=== PATIENT | female | born 2000 | race Hispanic/Latino ===

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

== ENCOUNTER → 2022-01-06 13:51 | Outpatient (CLI) | payer OTHER, SELFPAY ==
--- NOTE | ~2022-01-06 | US_ITS ---
EXAMINATION: US pelvic complete DATE: 01/06/2022 14:30 INDICATION: Right ovarian cyst. Comparison:Ultrasound dated 09/12/2021 TECHNIQUE: Multiple transabdominal and endovaginal sonographic images of the pelvis performed. FINDINGS: The uterus measures 8 x 3.3 x 4.8 cm. The endometrial complex measures 4 mm. The right ovary measures 3.7 x 3 x 3.9 cm and the left ovary measures 3.3 x 1.8 x 2.9 cm. There is a right ovarian cyst measuring 2.9 x 2.2 x 1.9 cm. There are small follicles in each ovary. Normal dopp ler signal in both ovaries. There is no free fluid in the pelvis. There are no abnormal masses seen on either side. IMPRESSION: 1. Right ovarian cyst measuring 2.9 x 2.2 x 1.9 cm. Reviewed, dictated and finalized at location A.
== END ==
LOC: EXPGOSH 13:52 → EXPGOSHRAD 01-09 15:08
PROVIDERS: PCP Registered Nurse; Visit Provider Registered Nurse
DX: N83.201 Unspecified ovarian cyst, right side (principal)
CPT/HCPCS: 76856

== ENCOUNTER 2022-05-10 13:00 | Outpatient (CLI) | payer OTHER, SELFPAY ==
--- NOTE | ~2022-05-10 | US_ITS ---
EXAMINATION: US pelvic complete DATE: 05/10/2022 13:23 INDICATION: Cyst of the right ovary TECHNIQUE: Multiple transabdominal sonographic images of the pelvis were obtained. COMPARISON: 01/06/2022 FINDINGS: The uterus measures 6.3 x 4.4 x 3.3 cm. The endometrial complex measures 3 mm. The right ov donald measures 3.2 x 3.4 x 2.1 cm. The left ovary measures 2.6 x 2.4 x 1.5 cm. There is normal vascular flow in the ovaries. There is no free fluid in the pelvis. IMPRESSION: 1. Unremarkable pelvic ultrasound. Reviewed, dictated and finalized at location F. ROAD WORKER
== END 2022-05-10 13:01 | disposition home or self-care (01) ==
LOC: ANHIMG 13:02
PROVIDERS: PCP Registered Nurse; Visit Provider Registered Nurse
DX: N83.201 Unspecified ovarian cyst, right side (principal)
CPT/HCPCS: 76856

== ENCOUNTER 2022-08-21 23:57 | Emergency (ER) | payer OTHER, SELFPAY ==
--- NOTE | ~2022-08-21 | XR_ITS ---
Clinical Indication: Chest pain PA and lateral views of the chest: Comparison: None Findings: The lungs are clear, without evidence of focal consolidation or pleural effusion. Cardiome diastinal silhouette is within normal limits. Bones and soft tissues are unremarkable. Impression: Normal chest. Reviewed, dictated and finalized at location . TECH Impression: Normal chest.
--- NOTE | ~2022-08-21 | CT_ITS ---
Clinical Indication: Chest pain CT Scan of the Chest with Contrast: Technique: Contiguous sections were acquired throughout the chest after intravenous administration of 100 cc of Omnipaque 350. Dose reduction technique was used on this scan by utilizing automated expos ure control and iterative reconstruction technique. The dose-length product (DLP) was 181.59 mGy-cm. Findings: There is no evidence of any significant mediastinal, hilar or axillary lymphadenopathy. There is no f illing defect in the pulmonary arterial tree to suggest pulmonary embolus. There is no evidence of ao rtic dissection or aneurysm. There is no evidence of pleural or pericardial effusion. The lungs are clear. No pulmonary nodules or infiltrates are noted. Images through the upper abdomen reveal no abnormalities. Impression: No evidence of pulmonary embolus, aortic dissection, or aortic aneurysm. Clear lungs. Reviewed, dictated and finalized at [facility]. LE BREAKER Impression: No evidence of pulmonary embolus, aortic dissection, or aortic aneurysm. Clear lungs.
[2022-08-21 23:59] VITALS: BP 139/96; PULSE 87; RESP 16; TEMP 36.3; O2SAT 100
--- NOTE | 2022-08-22 00:03 | ECG_ITS ---
Measurements Intervals [place] Rate: 84 P: 52 WI: 163 QRS: 28 QRSD: 90 T: 42 QT: 346 QTc: 410 Interpretive Statements SINUS RHYTHM WITH SINUS ARRHYTHMIA NO PREVIOUS ECG AVAILABLE FOR COMPARISON Electronically Signed On 08-22-2022 11:34:57 MINUTE CLERK FOR BASIC TRAFFIC by Ernie Rodriguez M.D.
--- NOTE | 2022-08-22 01:02 | ED.CHESTPAIN ---
HPI - Chest Pain General Chief Complaint: Chest Pain <ALFONSO Coker Last Filed: 08/22/22 03:24> Stated Complaint: Chest tightness/blurry vision <ALFONSO Coker Last Filed: 08/22/22 03:24> Time Seen by Provider: 08/22/22 00:49 <ALFONSO Coker Last Filed: 08/22/22 03:24> History of Present Illness HPI narrative: 22-year-old female reports for evaluation of tunnel vision and chest tightness that occurred earlier today. Patient states she was standing in the break room at work, started walking to the front desk receptionist and experienced sudden onset chest tightness and tunnel vision that lasted less than 60 seconds. Patient states since then she has had a mild bitemporal headache. She states she has not had chest tightness or tunnel vision since the incident. She reports she has never had this happen before. She denies neck pain, vision changes other than the tunnel vision, chest pain, abdominal pain, nausea, vomiting, diarrhea, fever, body aches, chills, focal numbness or weakness. She denies recent trauma or falls. Denies heartburn, epigastric pain. Denies use of drugs. HEART Score for Major Cardiac Events from [email or web address] on 08/22/2022 All calculations should be rechecked by clinician prior to use RESULT SUMMARY: 0 points Low Score (0-3 points) Risk of MACE of 0.9-1.7%. INPUTS: History ?> 0 = Slightly suspicious EKG ?> 0 = Normal Age ?> 0 = <45 Risk factors ?> 0 = No known risk factors Initial troponin ?> 0 = <=normal limit <ALFONSO Coker Last Filed: 08/22/22 03:24> Related Data Home Medications: Home Medications Medication Instructions Recorded Confirmed No Home Medications 08/10/21 08/10/21 <ALFONSO Coker Last Filed: 08/22/22 03:24> Allergies/Adverse Reactions: Allergies Allergy/AdvReac Type Severity Reaction Status Date / Time No Known Allergies Allergy Verified 08/22/22 00:50 <ALFONSO Coker Last Filed: 08/22/22 03:24> Review of Systems Review of Systems: CONSTITUTIONAL: Denies fever, chills EYES: Denies visual changes, redness, or discharge. ENT: Denies rhinorrhea, congestion, sore throat, or otalgia. CARDIOVASCULAR: Denies chest pain, palpitations, or edema. RESPIRATORY: Denies cough or dyspnea. GASTROINTESTINAL: Denies abdominal pain, nausea, vomiting, or diarrhea. GENITOURINARY: Denies dysuria or hematuria. SKIN: Denies rash or itching. MUSCULOSKELETAL: Denies back pain, joint pain, or myalgia. NEUROLOGIC: Denies headache, numbness, dizziness, or weakness. PSYCHIATRIC: Denies anxiety or depression. <Muriel Jeffery PA-C - Last Filed: 08/22/22 03:24> [facility] Social History Social History: Social History Gender identity (if verbalized by the patient): Female <Muriel Jeffery PA-C - Last Filed: 08/22/22 03:24> Exam Narrative: GENERAL: Well-appearing, well-nourished, and in no acute distress. HEAD: Normocephalic, atraumatic. EYES: PERRLA and EOMI. ENT: Nares clear, no rhinorrhea or epistaxis. Mucous membranes moist. Oropharynx without tonsillar hypertrophy exudate or other lesions. Bilateral TMs pearly king nonbulging NECK: Supple. No adenopathy or masses. CHEST: Clear to auscultation. No respiratory distress. No wheezes rales or rhonchi. HEART: Regular rate and rhythm. No murmur heard. Normal peripheral pulses. ABDOMEN: Soft, nontender, nondistended, normal active bowel sounds. EXTREMITIES: Normal range of motion. No edema. SKIN: Warm, dry, no rash. NEURO: No focal deficits. Alert and oriented x3. Cranial nerves II through XII intact. Strength 5 out of 5 throughout. Sensation intact in all extremities. PSYCH: Normal mood and affect. <Muriel Jeffery PA-C - Last Filed: 08/22/22 03:24> Course Course Emergency Course: 0255: Patient reevaluated. She reports improvement in her headache. 0323: Michelle
[2022-08-22 01:03] LABS: Basophils Absolute Auto 0.1 K/mm3 (0.0-0.1); Basophils Percent Auto 0.9 % (0.2-1.2); Eosinophils Absolute Auto 0.2 K/mm3 (0-0.3); Hematocrit 40.1 % (37.0-47.0); Hemoglobin 12.6 g/dL (12.0-15.0); Immature Granulocyte Absolute 0.02 K/mm3 (0.00-0.031); Immature Granulocyte Percent A 0.2 % (0-0.5); Lymphocytes Absolute Auto 3.32 K/mm3 (0.9-3.2); Lymphocytes Percent Auto 38.2 % (18.3-44.2); Mean Corpuscular HGB Conc 31.4 g/dl (32-36); Mean Corpuscular Hemoglobin 26.5 pg (26-34); Mean Corpuscular Volume 84.2 fl (80-100); Mean Platelet Volume 11.2 fl (7.4-10.4); Monocytes Absolute Auto 0.6 K/mm3 (0.1-0.6); Monocytes Percent Auto 7.2 % (2.6-8.5); Neutrophils Absolute Auto 4.5 K/mm3 (1.3-6.7); Neutrophils Percent Auto 51.5 % (45.5-73.1); Platelet Count Result 236 k/mm3 (150-375); Red Blood Count 4.76 M/mm3 (4.2-5.4); Red Cell Distribution Width 14.1 % (11.5-14.5); White Blood Count 8.7 K/mm3 (4.5-10.0)
[2022-08-22 01:16] LABS: INR 0.9; Prothrombin Time 12.1 Seconds (11.1-14.7)
[2022-08-22 01:17] LABS: Alanine Aminotransferase 22 U/L (6-35); Albumin Level 4.6 g/dL (3.5-5.1); Alkaline Phosphatase 78 U/L (38-126); Anion Gap 10 mmol/L (8-16); Aspartate Amino Transferase 28 U/L (14-36); Bilirubin,Total 0.4 mg/dL (0.2-1.3); Blood Urea Nitrogen 20 mg/dL (7-17); Carbon Dioxide 25 mmol/L (22-30); Chloride 104 mmol/L (98-107); Estimated CRCL calculation 83 ml/min; Estimated Glomerular Filt Rate > 60; Glucose 95 mg/dL (65-110); Lipase 86 U/L (23-300); Partial Thromboplastin Time 30.7 SECONDS (22.3-36.8); Potassium 3.7 mmol/L (3.4-5.0); Sodium 139 mmol/L (137-145)
[2022-08-22 01:25] LABS: Troponin I < 0.012 ng/mL (0.000-0.034)
[2022-08-22] MEDS: diphenhydrAMINE HCl INJ 50 MG/ML VIAL 25 MG IV PUSH (01:47)
[2022-08-22] MEDS: SODIUM CHLORIDE 0.9% IV 1,000 ML 999 ML IV CONT (01:47)
[2022-08-22] MEDS: KETOROLAC 15 MG/ML VIAL (*BKC) IV PUSH (01:52)
[2022-08-22 02:38] VITALS: BP 126/71; PULSE 86
[2022-08-22 02:40] VITALS: BP 124/64; PULSE 82
[2022-08-22 02:43] VITALS: BP 130/58; PULSE 78
[2022-08-22 03:06] LABS: Appearance Urine Clear (Clear); Bilirubin Urine Negative (Negative); Blood Urine Negative (Negative); Color Urine Yellow (Yellow); Glucose Urine UA Negative (Negative); Ketones Urine Negative (Negative); Leukocyte Esterase Ur Trace LEU/UL (Negative); Need Manual Microscopic Reviewed; Nitrate Urine Negative (Negative); Non Pathogenic Casts 0-2; Protein Urine Negative (Negative); RBC Urine 0-2 /hpf (0-2); Specific Grav Ur 1.002 (1.001-1.035); Squamous Epithelial Cell Urine None seen /hpf (Few); Urobilinogen Urine 0.2 mg/dL (<2.0); WBC Urine 0-5 /hpf; pH Urine 6.5 (5.0-9.0)
[2022-08-22 03:07] LABS: Add Urine Microscopic? YES; Bacteria Urine Trace /hpf
[2022-08-22 03:42] LABS: D Dimer 1.85 ug/mL (<0.48)
[2022-08-22 03:44] LABS: Troponin I < 0.012 ng/mL (0.000-0.034)
[2022-08-22 05:00] VITALS: BP 127/82; PULSE 82; RESP 17; O2SAT 100
[2022-08-22 06:18] VITALS: BP 116/76; PULSE 76; O2SAT 100
== END 2022-08-22 06:27 | disposition home or self-care (01) ==
PROVIDERS: Physician Assistant; Emergency Provider General Practice; PCP Registered Nurse
DX: R55 Syncope and collapse (principal); R07.89 Other chest pain
CPT/HCPCS: 36415; 71046; 71275; 80053; 81001; 81025; 83690; 84484; 85025; 85380; 85610; 85730; 93005; 96361; 96374; 96375; 99284; J1200; J1885; J7030; Q9967

== ENCOUNTER 2022-08-23 22:14 | Emergency (ER) | payer OTHER, SELFPAY ==
--- NOTE | ~2022-08-23 | XR_ITS ---
EXAMINATION: XR chest 2V DATE: 08/23/2022 22:51 INDICATION: Chest pain TECHNIQUE: PA and lateral views of the chest are obtained. COMPARISON: 08/22/2022 FINDINGS: The lungs are free of acute opacities. No pleural effusion or pneumothorax. The cardiomedia stinal silhouette is normal. The visualized bones and soft tissues are unremarkable. IMPRESSION: 1. No acute cardiopulmonary abnormality. Reviewed, dictated and finalized at location F. POLLUTION SPECIALIST
--- NOTE | 2022-08-23 22:19 | ECG_ITS ---
Measurements Intervals [place] Rate: 77 P: 48 WI: 156 QRS: 16 QRSD: 85 T: 24 QT: 355 QTc: 403 Interpretive Statements SINUS RHYTHM NORMAL ECG COMPARED TO ECG 08/22/2022 00:10:18 NO SIGNIFICANT CHANGES Electronically Signed On 08-24-2022 6:33:13 BUSINESS BROKER by Lauro Muniz D.O.
[2022-08-23 22:23] VITALS: BP 138/86; PULSE 76; RESP 20; TEMP 36.7; O2SAT 100
[2022-08-23 22:39] LABS: Basophils Absolute Auto 0.1 K/mm3 (0.0-0.1); Basophils Percent Auto 0.9 % (0.2-1.2); Eosinophils Absolute Auto 0.2 K/mm3 (0-0.3); Eosinophils Percent Auto 1.9 % (0-4.4); Hematocrit 40.8 % (37.0-47.0); Hemoglobin 12.8 g/dL (12.0-15.0); Immature Granulocyte Absolute 0.03 K/mm3 (0.00-0.031); Immature Granulocyte Percent A 0.3 % (0-0.5); Lymphocytes Absolute Auto 3.35 K/mm3 (0.9-3.2); Lymphocytes Percent Auto 37.3 % (18.3-44.2); Mean Corpuscular HGB Conc 31.4 g/dl (32-36); Mean Corpuscular Hemoglobin 26.3 pg (26-34); Mean Corpuscular Volume 83.8 fl (80-100); Mean Platelet Volume 10.9 fl (7.4-10.4); Monocytes Absolute Auto 0.6 K/mm3 (0.1-0.6); Neutrophils Absolute Auto 4.7 K/mm3 (1.3-6.7); Neutrophils Percent Auto 52.6 % (45.5-73.1); Platelet Count Result 236 k/mm3 (150-375); Red Blood Count 4.87 M/mm3 (4.2-5.4)
[2022-08-23 22:51] LABS: Alanine Aminotransferase 26 U/L (6-35); Alkaline Phosphatase 67 U/L (38-126); Anion Gap 10 mmol/L (8-16); Aspartate Amino Transferase 28 U/L (14-36); Bilirubin,Total 0.4 mg/dL (0.2-1.3); Blood Urea Nitrogen 17 mg/dL (7-17); Calcium 9.7 mg/dL (8.4-10.2); Carbon Dioxide 24 mmol/L (22-30); Chloride 102 mmol/L (98-107); Estimated CRCL calculation 87 ml/min; Estimated Glomerular Filt Rate > 60; Glucose 84 mg/dL (65-110); Lipase 81 U/L (23-300); Potassium 3.6 mmol/L (3.4-5.0); Prothrombin Time 12.3 Seconds (11.1-14.7); Sodium 136 mmol/L (137-145)
[2022-08-23 22:52] LABS: Partial Thromboplastin Time 31.2 SECONDS (22.3-36.8)
[2022-08-23 23:03] LABS: Troponin I < 0.012 ng/mL (0.000-0.034)
[2022-08-24 05:03] VITALS: BP 135/96; PULSE 81; RESP 16; O2SAT 100
--- NOTE | 2022-08-24 05:12 | ED.CHESTPAIN ---
HPI - Chest Pain General Chief Complaint: Chest Pain Stated Complaint: chest pain Time Seen by Provider: 08/24/22 05:03 Source: RN notes reviewed History of Present Illness HPI narrative: Patient presents emergency department from home for chest pain. He states chest pain began 3 days ago. The pain is located to left superior anterior chest and is described as sharp and stabbing in nature. States the pain will radiate into the left arm or into the back at times. States nothing seems to make the pain better or worse. Patient states at times she feels like she cannot take a deep breath. She denies any fevers or chills, cough, abdominal pain nausea vomiting diarrhea or any other symptoms. Patient states she was seen in the emergency department 3 days ago with negative work-up at that time but was not told what was wrong with her and came back for further evaluation states she has taken no pain medication Related Data Allergies Allergy/AdvReac Type Severity Reaction Status Date / Time No Known Allergies Allergy Verified 08/22/22 00:50 Review of Systems Review of Systems: Gen.: Denies fevers or chills ENT: Denies congestion Respiratory: Reports shortness of breath CV: See HPI GI: Denies abdominal pain nausea, emesis or diarrhea denies burning, urgency, frequency or hematuria Musculoskeletal: Denies back pain or muscle pain Neuro: Denies numbness, tingling, weakness or focal weakness Skin: Denies rash Except as documented, all other systems reviewed and negative PMF Past Medical History Medical History (Updated 08/24/22 @ 06:42 by Shan Cheung DO) Patient denies significant medical history Social History Social History (Updated 08/24/22 @ 05:14 by Shan Cheung DO) Smoking status: Never smoker Gender identity (if verbalized by the patient): Female Exam Narrative: APPEARANCE: No acute distress, nontoxic, resting in bed EYES: EOMI HEENT: Normocephalic, atraumatic, OMM RESPIRATORY: No respiratory distress Clear to auscultation bilaterally with no rhonchi wheezing or rales. CARDIOVASCULAR: Regular rate and rhythm without murmurs rubs or gallops. Chest: Point tenderness present over left anterior superior chest wall just to the left of the sternum in the region of ribs 3 and 4 corresponding tenderness in back in same region ABDOMINAL: Soft, nontender, nondistended, no rebound or guarding MUSCULOSKELETAl: Moves all extremities. No clubbing, cyanosis or edema. NEURO: Awake and alert. Following commands, speech normal, no focal deficits SKIN:: Warm, dry. No rashes lesions or abrasions PSYCHIATRIC: Normal affect/mood, Course Course Emergency Course: Patient meets PERC rule criteria and no further testing needs to be performed for pulmonary embolism. Reviewed old records including CTA of the chest that was performed on 08/22/2022. CTA chest showed no signs of pulmonary embolism and aneurysm pneumonia Discussed with patient results of workup and diagnosis. Discussed need for follow-up with primary care, proper use of medication, and reasons to return to the emergency department. Patient understands and agrees to current treatment plan Vital Signs Vital signs: Vital Signs Temperature 98.0 F 08/23/22 22:23 Pulse Rate 76 08/23/22 22:23 Respiratory Rate 20 08/23/22 22:23 Blood Pressure 138/86 08/23/22 22:23 Pulse Oximetry 100 08/23/22 22:23 Oxygen Delivery Room Air 08/23/22 22:23 Temperature 98.9 F 08/24/22 05:37 Pulse Rate 79 08/24/22 05:37 Respiratory Rate 17 08/24/22 05:37 Blood Pressure 122/96 H 08/24/22 05:37 Pulse Oximetry 100 08/24/22 05:37 Oxygen Delivery Room Air 08/24/22 05:43 MDM - Chest Pain MDM Narrative Medical decision making narrative: Patient's EKGs and labs are without significant high risk changes. Cardiac risk factors reviewed. Patient is felt likely low risk for ACS and reasonable for further risk stratification testing as an outpatient.
[2022-08-24 05:19] VITALS: PULSE 78; RESP 14; O2SAT 99
[2022-08-24 05:30] VITALS: PULSE 79; RESP 12; O2SAT 100
[2022-08-24] MEDS: KETOROLAC 30 MG/ML VIAL (*BKC) IV PUSH (05:35)
[2022-08-24 05:37] VITALS: BP 122/96; PULSE 79; RESP 17; TEMP 37.2; O2SAT 100
[2022-08-24 06:12] LABS: Troponin I < 0.012 ng/mL (0.000-0.034)
[2022-08-24 06:58] VITALS: BP 122/69; PULSE 84; RESP 18; TEMP 36.6; O2SAT 99
== END 2022-08-24 06:58 | disposition home or self-care (01) ==
PROVIDERS: Emergency Provider Emergency Medicine; PCP Registered Nurse
DX: R07.89 Other chest pain (principal)
CPT/HCPCS: 36415; 71046; 80053; 83690; 84484; 85025; 85610; 85730; 93005; 96374; 99284; A9270; J1885

== ENCOUNTER 2022-10-17 09:30 | Outpatient (RCR) | payer OTHER, SELFPAY ==
--- NOTE | 2022-09-05 08:47 | PTOPEVAL1 ---
Assessment and note entered by Dayday Davis, PT Evaluation Information Assessment Status Evaluation Diagnosis Chondrocostal junction pain Onset Less than a week ago Subjective Information Patient reports no incidents of moderate to severe chest pain. Both times went to the ER and then saw her primary care physician. The patient reports the doctor thought the first incident was a panic attack, but the second was musculoskeletal . Patient was given PRN anti-anxiety medication and medications for the pain, which patient does not recall the name of. She reports pain has gone down to mild pain. Aggravating factors are lat pull downs. No radiating symptoms Assessment PT Clinical Summary Tameka is a 22 year female coming in with chest pain. Unable to reproduce pain felt that sent her to ER, but did notice tightness in MADHAVI pecs and L scalenes along with painful palpation of scalene muscles on the L side. Will work on stretching out muscles and see if that help minimizes pain. Also encouraged her to avoid over head lifting for a little time. Plan of Care Interventions Electrical Stimulation,Gait Training,Hot Pack/Cold Pack,Manual Therapy,Neuro Re-education,Patient/ Caregiver Education,Therapeutic Activities, Therapeutic Exercise,Ultrasound Other Interventions taping PT Services Indicated Yes Treatment Frequency and 1-2x/wk for 4 weeks Duration These treatments will address the objective and functional deficits as defined above. The patient will be advanced safely and appropriately in order for the patient to progress towards his/her prior level of function. Additional exercises will be introduced and as well as a comprehensive home exercise program upon discharge, if needed, ?to ensure carryover of functional gains achieved in the clinic. This treatment plan has been reviewed and agreement upon by the patient.
--- NOTE | 2022-09-13 10:37 | PCPTNOTE ---
Patient called & cancelled scheduled appointment this date due to not feeling well
--- NOTE | 2022-09-20 11:01 | PCPTNOTE ---
Had to reschedule appointment from 09/19/22 secondary to staff illness.
--- NOTE | 2022-09-21 07:47 | PCPTNOTE ---
Patient called & cancelled scheduled appointment this date due to unable to make it in today.
--- NOTE | 2022-10-02 09:23 | PCPTNOTE ---
Patient called & cancelled scheduled appointment this date due to forgetting appointment until it started
--- NOTE | 2022-10-17 10:31 | PTOPDC ---
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 She still has pain, but maybe only 1-2 times a week instead of constant. No longer having pain with lat pull downs, but now with rows in her T5 posterior rib. Patient reports doing the stretching prior to working out is really helping. Reported Pain Level Pain Score 0: Self Report Additional Pain Score Comments currently no pain, but has been a 1/10 during the last week Assessment PT Clinical Summary Tameka is a 22 year old female coming in for chondrocostal junction pain. She was evaluated on 09/04/22 and has attended 5 sessions with 3 cancelations. The patient has met her goals although she still does have minor 1/10 occasional pain. Patient is okay with discharge with stretches and HEP to continue to work on upper thoracic tightness. Plan of Care PT Services Indicated No
== END 2022-11-17 14:24 | disposition home or self-care (01) ==
LOC: ANHPT 09:30
PROVIDERS: PCP Registered Nurse; Visit Provider Registered Nurse
DX: M94.0 Chondrocostal junction syndrome [Tietze] (principal)
CPT/HCPCS: 97110; 97112; 97140; 97161

== ENCOUNTER 2022-11-03 09:55 | Emergency (ER) | payer OTHER, SELFPAY ==
[2022-11-03 10:20] VITALS: BP 113/69; PULSE 80; RESP 18; TEMP 36.9; O2SAT 99
--- NOTE | 2022-11-03 11:00 | ED.URI ---
HPI - URI/Sore Throat General Chief Complaint: Upper Respiratory Infection Stated Complaint: Runny nose & cough Time Seen by Provider: 11/03/22 10:36 Source: patient Mode of arrival: ambulatory Limitations: no limitations History of Present Illness HPI Narrative: Patient presents today with a 4 day history of slight cough, scratchy throat, bilateral ear itching, rhinorrhea, congestion, eye itching, sneezing. Denies fever or shortness of breath. No history of asthma. Patient is a nonsmoker. She has been taking Flonase, Claritin, and TheraFlu without much relief. History of seasonal allergies. Related Data Home Medications Medication Instructions Recorded Confirmed fluticasone propionate 50 50 mcg intranasal DIRECTED 11/03/22 11/03/22 mcg/actuation nasal spray,suspension loratadine 10 mg tablet 10 mg DIRECTED 11/03/22 11/03/22 Allergies Allergy/AdvReac Type Severity Reaction Status Date / Time No Known Allergies Allergy Verified 08/22/22 00:50 Review of Systems Review of Systems: CONSTITUTIONAL: Denies body aches, fever, chills, or sweats. EYES: Denies visual changes, redness, or discharge.+ bilateral eye itching ENT: + congestion, sneezing, rhinorrhea, bilateral ear itching, scratchy throat CARDIOVASCULAR: Denies chest pain, palpitations, or edema. RESPIRATORY: Denies dyspnea.+ cough GASTROINTESTINAL: Denies abdominal pain, nausea, vomiting, or diarrhea. GENITOURINARY: Denies dysuria or hematuria. SKIN: Denies rash, itching, or wounds. MUSCULOSKELETAL: Denies back pain, joint pain, or myalgia. NEUROLOGIC: Denies headache, numbness, tingling, or weakness. PSYCH: Denies depression or anxiety. [facility] Past Medical History Medical History Patient denies significant medical history Social History Social History Smoking status: Never smoker Gender identity (if verbalized by the patient): Female Comments At time of signature, I have reviewed and agree with nursing past medical, surgical, social and family history unless otherwise noted. Please see nursing chart for further information. There is no relevant family history pertinent to the presenting complaint Exam Narrative: GENERAL: Well-appearing, well-nourished, and in no acute distress. HEAD: Normocephalic, atraumatic. EYES: EOMI. No redness or drainage. Conjunctivae normal. ENT: Mucous membranes pink and moist. Nares congested with rhinorrhea. TMs normal bilaterally. Throat normal. Uvula midline. NECK: Normal AROM. Supple. No lymphadenopathy. CHEST: No respiratory distress. Clear to auscultation. HEART: Regular rate and rhythm. No murmur appreciated. Normal peripheral pulses. EXTREMITIES: Normal range of motion. No edema. SKIN: Warm, dry, no rash. Capillary refill normal. Normal skin turgor. NEURO: No focal deficits. Alert and oriented x3. Gait steady. PSYCH: Normal affect. No signs of depression or anxiety. Course Course Level of Care: Express Care Visit Vital Signs Vital signs: Vital Signs Temperature 98.5 F 11/03/22 10:20 Pulse Rate 80 11/03/22 10:20 Respiratory Rate 18 11/03/22 10:20 Blood Pressure 113/69 11/03/22 10:20 Pulse Oximetry 99 11/03/22 10:20 Oxygen Delivery Room Air 11/03/22 10:20 Temperature 98.5 F 11/03/22 10:20 Pulse Rate 80 11/03/22 10:20 Respiratory Rate 18 11/03/22 10:20 Blood Pressure 113/69 11/03/22 10:20 Pulse Oximetry 99 11/03/22 10:20 Oxygen Delivery Room Air 11/03/22 10:20 Reviewed MDM - URI/Sore Throat [facility] Narrative Medical decision making narrative: Symptoms and exam consistent with seasonal allergies. Will treat with prednisone and patient will continue her [id number] treatment. Anticipatory guidance given. Differential Diagnosis Differential diagnosis: Likely upper respiratory infection, otitis media, sin
== END 2022-11-03 11:18 | disposition home or self-care (01) ==
PROVIDERS: Emergency Provider Nurse Practitioner; PCP Registered Nurse
DX: J30.2 Other seasonal allergic rhinitis (principal)
CPT/HCPCS: 99213; G0463

== ENCOUNTER 2023-04-21 18:38 | Emergency (ER) | payer OTHER, SELFPAY ==
--- NOTE | ~2023-04-21 | XR_ITS ---
EXAM: XR ankle LT min 3V DATE: 04/21/2023 19:05 HISTORY: fall/pain ALL AROUND ANKLE JOINT . COMPARISON: None available. FINDINGS: Normal mineralization. No fracture or dislocation. No lytic or blastic lesion. Joint space s are maintained. No erosion or periosteal change. Soft tissues within normal limits. IMPRESSION: No acute osseous finding in the left ankle. Reviewed, dictated and finalized at location K.
[2023-04-21 18:52] VITALS: BP 120/79; PULSE 88; RESP 16; TEMP 36.6; O2SAT 100
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
[2023-04-21 21:04] VITALS: BP 116/74; PULSE 76; RESP 16; O2SAT 100
== END 2023-04-21 21:04 | disposition home or self-care (01) ==
PROVIDERS: Emergency Provider Emergency Medicine; PCP Registered Nurse
DX: S93.402A Sprain of unspecified ligament of left ankle, initial encounter (principal); S96.912A Strain of unspecified muscle and tendon at ankle and foot level, left foot, initial encounter; X50.0XXA Overexertion from strenuous movement or load, initial encounter
CPT/HCPCS: 73610; 99283

== ENCOUNTER 2023-05-18 14:31 | Emergency (ER) | payer OTHER, SELFPAY ==
--- NOTE | 2023-05-18 14:32 | ED.URI ---
HPI - URI/Sore Throat General Chief Complaint: Upper Respiratory Infection Stated Complaint: sore throat,cough Time Seen by Provider: 05/18/23 14:32 Source: patient Mode of arrival: ambulatory Limitations: no limitations History of Present Illness HPI Narrative: Lisa is a 23-year-old female patient presenting to the clinic today with complaints of sore throat and cough x1 week. She reports no known fever or chills. No known exposure to anyone with COVID, flu, or strep. MD elicited complaint: cough, sore throat and nasal congestion Related Data Home Medications Medication Instructions Recorded Confirmed loratadine 10 mg tablet 10 mg DIRECTED 11/03/22 05/18/23 Allergies Allergy/AdvReac Type Severity Reaction Status Date / Time No Known Allergies Allergy Verified 05/18/23 14:40 Review of Systems Review of Systems: Pertinent positives per HPI. Patient denies any fever, chills, rash, headache, visual changes, dizziness, shortness of breath, chest pain, palpitations, nausea, vomiting, diarrhea, constipation, abdominal pain, or any urinary issues. [facility] Past Medical History Medical History Patient denies significant medical history Social History Social History Smoking status: Never smoker Gender identity (if verbalized by the patient): Female Comments At the time of my signature, I reviewed and agree with the nursing past medical, surgical, social, and family history. There is no relevant family history pertinent to the patient complaint. Exam Narrative: General: Well-developed, well nourished, in no apparent distress Head: Normocephalic, atraumatic Eyes: Pupils equally round and reactive to light bilaterally, EOM intact, sclera and conjunctive clear, no discharge, lids normal Ears: TMs intact and clear, ear canals clear, no drainage, grossly hearing normal. Nose: Nares patent, clear nasal discharge, moderate inflammation, no sinus tenderness. Mouth: Oral pharynx red without lesions or masses, good dentition, MMM. Postnasal drip Neck: Supple, trachea midline, no enlargement of anterior or posterior cervical nodes, no thyroid masses or goiter palpable. Cardio: Regular rate and rhythm, s1 and s2 normal, no murmur appreciated. Resp: Clear to auscultation bilaterally, no rhonchi, rales, wheezing or rubs Course Course Emergency Course: Portions of this record may have been created with voice recognition software. Level of Care: Express Care Visit Vital Signs Vital signs: Vital signs reviewed MDM - URI/Sore Throat MDM Narrative Medical decision making narrative: At the time of visit patient is resting comfortably on exam table. Strep screen was obtained and was negative in the clinic today. I suspect patient has URI/pharyngitis. Will send in prescription for prednisone. Supportive measures were discussed with the patient she voiced understanding discharge instructions and agrees to treatment plan. Return precautions were reviewed Differential Diagnosis Differential diagnosis: Likely upper respiratory infection, otitis media, sinusitis, viral infection, bronchitis, influenza, pharyngitis and other (COVID) Discharge Plan Discharge Clinical Impression: Upper respiratory infection Qualifiers: URI type: unspecified URI Qualified Code(s): J06.9 - Acute upper respiratory infection, unspecified Pharyngitis Qualifiers: Pharyngitis/tonsillitis etiology: unspecified etiology Qualified Code(s): J02.9 - Acute pharyngitis, unspecified Patient Disposition: Home, Self-Care Condition: Stable Instructions: Antibiotic Form, Pharyngitis (ED), Upper Respiratory Infection (ED), Viral Syndrome (ED) Additional Instructions: Strep test was negative in the clinic today. We will send for culture if this comes back positive we will contact him place you on antibiotics at that kathleen
[2023-05-18 14:43] VITALS: BP 122/67; PULSE 80; RESP 16; TEMP 37.1; O2SAT 100
== END 2023-05-18 14:53 | disposition home or self-care (01) ==
PROVIDERS: Emergency Provider Nurse Practitioner Family; PCP Registered Nurse
DX: J06.9 Acute upper respiratory infection, unspecified (principal); J02.9 Acute pharyngitis, unspecified
CPT/HCPCS: 87081; 87880; 99213; G0463

== ENCOUNTER 2024-03-30 19:28 | Emergency (ER) | payer OTHER, SELFPAY ==
--- NOTE | ~2024-03-30 | US_ITS ---
Pelvic ultrasound. Clinical History: First trimester , vaginal bleeding Technique: Realtime transabdominal and transvaginal scanning of the pelvis was performed. Color flow Doppler and Doppler spectral analysis were performed. Findings: The uterus is anteverted. The endometrial stripe is heterogeneous, and has a thickness of 14 mm. No intrauterine gestational sac identified. The right ovary measures 2.7 x 2.0 x 2.3 cm. No significant right ovarian or adnexal mass is seen. The left ovary measures 3.6 x 2.5 x 2.3 cm. No significant left ovarian or adnexal mass is seen. There is trace free fluid in the cul de sac. Impression: Positive test without intrauterine gestation. Heterogeneous endometrial stripe suggests spo ntaneous . Early normal or nonvisualized ectopic are not completely exclu ded. Correlate clinically. Continued follow-up with serial beta hCG, and repeat ultrasound as warrant ed, is advised. Reviewed, dictated and finalized at location . Impression: Positive test without intrauterine gestation. Heterogeneous endometri al stripe suggests spontaneous . Early normal or nonvisualize d ectopic are not completely excluded. Correlate clinically. Continue d follow-up with serial beta hCG, and repeat ultrasound as warranted, is advise dRic
[2024-03-30 19:36] VITALS: BP 128/63; PULSE 82; RESP 16; TEMP 36.4; O2SAT 100
[2024-03-30 20:48] LABS: Basophils Absolute Auto 0.1 K/mm3 (0.0-0.1); Basophils Percent Auto 0.8 % (0.2-1.2); Eosinophils Absolute Auto 0.1 K/mm3 (0-0.3); Eosinophils Percent Auto 1.4 % (0-4.4); Hematocrit 38.7 % (37.0-47.0); Hemoglobin 12.4 g/dL (12.0-15.0); Immature Granulocyte Absolute 0.02 K/mm3 (0.00-0.031); Immature Granulocyte Percent A 0.2 % (0-0.5); Lymphocytes Absolute Auto 2.52 K/mm3 (0.9-3.2); Lymphocytes Percent Auto 27.2 % (18.3-44.2); Mean Corpuscular Hemoglobin 26.7 pg (26-34); Mean Corpuscular Volume 83.4 fl (80-100); Mean Platelet Volume 11.2 fl (7.4-10.4); Monocytes Absolute Auto 0.5 K/mm3 (0.1-0.6); Monocytes Percent Auto 5.7 % (2.6-8.5); Neutrophils Percent Auto 64.7 % (45.5-73.1); Platelet Count Result 223 k/mm3 (150-375); Red Blood Count 4.64 M/mm3 (4.2-5.4); Red Cell Distribution Width 14.2 % (11.5-14.5); White Blood Count 9.3 K/mm3 (4.5-10.0)
[2024-03-30 20:57] LABS: Alanine Aminotransferase 16 U/L (6-35); Albumin Level 4.5 g/dL (3.5-5.1); Alkaline Phosphatase 54 U/L (38-126); Anion Gap 10 mmol/L (4-12); Aspartate Amino Transferase 26 U/L (14-36); Bilirubin,Total 0.3 mg/dL (0.2-1.3); Blood Urea Nitrogen 18 mg/dL (7-17); Calcium 9.5 mg/dL (8.4-10.2); Carbon Dioxide 25 mmol/L (22-30); Chloride 104 mmol/L (98-107); Estimated CRCL calculation 82 ml/min; Estimated Glomerular Filt Rate > 60; Glucose 83 mg/dL (65-110); Potassium 4.1 mmol/L (3.4-5.0); Sodium 139 mmol/L (137-145)
[2024-03-30 20:59] LABS: INR 0.9; Partial Thromboplastin Time 30.2 Seconds (22.3-36.8); Prothrombin Time 12.7 Seconds (11.1-14.7)
[2024-03-30 21:14] LABS: Beta HCG Quantitative 533.85 mIU/ML
[2024-03-31 00:38] LABS: Add Urine Microscopic? NO; Appearance Urine Clear (Clear); Bilirubin Urine Negative (Negative); Blood Urine Negative (Negative); Color Urine Yellow (Yellow); Glucose Urine UA Negative (Negative); Ketones Urine Negative (Negative); Leukocyte Esterase Ur Negative LEU/UL (Negative); Nitrate Urine Negative (Negative); Protein Urine Negative (Negative); Urobilinogen Urine 0.2 mg/dL (<2.0); pH Urine 7.5 (5.0-9.0)
--- NOTE | 2024-03-31 00:49 | PC.NURSE ---
Pt to ultrasound at this time.
[2024-03-31 01:41] LABS: Trichomonas Vag PCR NOT DETECTED (NOT DETECTE)
--- NOTE | 2024-03-31 02:02 | ED.FEMALEGU ---
HPI - Female Genitourinary General Chief complaint: Vaginal Bleeding <Muriel Jeffery PA-C - Last Filed: 03/31/24 02:13> Stated complaint: 3 days vag bleed, 6w preg <Muriel Jeffery PA-C - Last Filed: 03/31/24 02:13> Time Seen by Provider: 03/30/24 22:20 <Muriel Jeffery PA-C - Last Filed: 03/31/24 02:13> History of Present Illness HPI Narrative: 24-year-old female who is presents to the emergency department for vaginal bleeding in . Patient states she believes she is approximately 6 weeks , LMP February 12. She states she noticed some vaginal spotting that started 3 days ago and is progressively increased. states the bleeding has been light and has not required her to wear a pad or tampon. She reports some suprapubic abdominal discomfort. Denies dysuria, hematuria, vaginal discharge, concern for STDs, fever, nausea or vomiting. <Muriel Jeffery PA-C - Last Filed: 03/31/24 02:13> Related Data Home medications: Home Medications Medication Instructions Recorded Confirmed loratadine 10 mg tablet 10 mg DIRECTED 11/03/22 05/18/23 <Muriel Jeffery PA-C - Last Filed: 03/31/24 02:13> Allergies/Adverse reactions: Allergies Allergy/AdvReac Type Severity Reaction Status Date / Time No Known Allergies Allergy Verified 03/30/24 19:29 <Muriel Jeffery PA-C - Last Filed: 03/31/24 02:13> Review of Systems Review of Systems: All systems reviewed & are unremarkable except as noted in HPI and below <Muriel Jeffery PA-C - Last Filed: 03/31/24 02:13> ON LICENSE OF [facility] Past Medical History Medical History: Medical History Patient denies significant medical history <Muriel Jeffery PA-C - Last Filed: 03/31/24 02:13> Social History Social History: Social History Smoking status: Never smoker Gender identity (if verbalized by the patient): Female <Muriel Jeffery PA-C - Last Filed: 03/31/24 02:13> Exam Narrative: GENERAL: Well-appearing, well-nourished, and in no acute distress. HEAD: Normocephalic, atraumatic. EYES: PERRLA and EOMI. ENT: Nares clear, no rhinorrhea or epistaxis. Mucous membranes moist. NECK: Supple. CHEST: Clear to auscultation. No respiratory distress. HEART: Regular rate and rhythm. No murmur heard. Normal peripheral pulses. ABDOMEN: Soft, nontender, nondistended, normal active bowel sounds. no rebound, guarding or rigidity. No CVA tenderness : chaperoned by tech Charlie: normal external genitalia. Mild blood in the vaginal vault. Cervical os is closed without cervical motion tenderness. No tissue or clots visualized. No adnexal masses or tenderness EXTREMITIES: Normal range of motion. No edema. SKIN: Warm, dry, no rash. NEURO: No focal deficits. Alert and oriented x3 <Muriel Jeffery PA-C - Last Filed: 03/31/24 02:13> Course [facility]/PA Physician Supervision This visit was performed by both the physician and an APC. I performed all aspects of the MDM as documented <Wale Da Silva MD - Last Filed: 03/31/24 04:19> Vital Signs Vital signs: Vital Signs Temperature 36.4 C L 03/30/24 19:36 Pulse Rate 82 03/30/24 19:36 Respiratory Rate 16 03/30/24 19:36 Blood Pressure 128/63 03/30/24 19:36 Pulse Oximetry 100 03/30/24 19:36 Temperature 36.8 C 03/31/24 03:18 Pulse Rate 71 03/31/24 03:18 Respiratory Rate 19 03/31/24 03:18 Blood Pressure 111/76 03/31/24 03:18 Pulse Oximetry 99 03/31/24 03:18 <Muriel Jeffery PA-C - Last Filed: 03/31/24 02:13> Vital Signs Temperature 36.4 C L 03/30/24 19:36 Pulse Rate 82 03/30/24 19:36 Respiratory Rate 16 03/30/24 19:36 Blood Pressure 128/63 03/30/24 19:36 Pulse Oximetry 100 03/30/24 19:36 Temperature 36.8 C 03/31/24 03:18 Pulse Rate 71 03/31/24 03:18 Respir
[2024-03-31 02:06] LABS: Chlamydia trachomatis NOT DETECTED (NOT DETECTE); Neisseria gonorrhoeae PCR NOT DETECTED (NOT DETECTE)
--- NOTE | 2024-03-31 03:16 | PC.NURSE ---
Report received from MARIAJOSE Bojorquez. Assumed care of patient at this time.
[2024-03-31 03:18] VITALS: BP 111/76; PULSE 71; RESP 19; TEMP 36.8; O2SAT 99
[2024-03-31 04:20] VITALS: BP 108/65; PULSE 85; RESP 16; O2SAT 100
== END 2024-03-31 04:22 | disposition home or self-care (01) ==
PROVIDERS: Physician Assistant; Emergency Provider Emergency Medicine; PCP Registered Nurse
DX: O20.0 Threatened abortion (principal); Z3A.01 Less than 8 weeks gestation of pregnancy
CPT/HCPCS: 36415; 76801; 76817; 80053; 81003; 84702; 85025; 85461; 85610; 85730; 86850; 86900; 86901; 87491; 87591; 87661; 99284

== ENCOUNTER 2024-04-02 10:47 | Outpatient (CLI) | payer OTHER, SELFPAY ==
[2024-04-02 11:57] LABS: Beta HCG Quantitative 730.85 mIU/ML
== END 2024-04-02 10:48 | disposition home or self-care (01) ==
LOC: ANHLAB 10:50
PROVIDERS: PCP Registered Nurse; Visit Provider Student in an Organized Health Care Education/Training Program
DX: O02.1 Missed abortion (principal)
CPT/HCPCS: 36415; 84702

== ENCOUNTER 2024-04-04 12:16 | Outpatient (CLI) | payer OTHER, SELFPAY | END 2024-04-04 12:17 | disposition home or self-care (01) | LOC: ANHLAB 12:17 | PROVIDERS: PCP Registered Nurse; Visit Provider Obstetrics & Gynecology | DX: O02.1 Missed abortion (principal); Z3A.00 Weeks of gestation of pregnancy not specified | CPT/HCPCS: 36415; 84702 ==

== ENCOUNTER 2024-04-07 11:20 | Outpatient (CLI) | payer OTHER, SELFPAY ==
--- NOTE | ~2024-04-07 | US_ITS ---
EXAMINATION: US OB <=14 wk fetus w TV DATE: 04/07/2024 12:10 INDICATION: Threatened . TECHNIQUE: Real-time transabdominal and transvaginal obstetric ultrasound. FINDINGS: Ultrasound dated 03/31/2024 The uterus measures 8.6 x 4.2 x 4.6 cm. No intrauterine gestational sac or pole identified. End ometrium is normal measuring 4 mm. Right ovary contains follicular changes measuring 2.8 x 1.7 x 2.9 cm. Left ovary measures 2.7 x 1.9 x 2.6 cm. There is normal Doppler signal in both ovaries. No free f luid in the pelvis. IMPRESSION: 1. No evidence for intrauterine . Normal endometrium. Considerations include failed pregnanc y and less likely ectopic or very early IUP. Recommend continued correlation with beta-hCG levels and ultrasound as clinically warranted. Reviewed, dictated and finalized at location B. IMPRESSION: 1. No evidence for intrauterine . Normal endometrium. Considerations i nclude failed and less likely ectopic or very early IUP. Re commend continued correlation with beta-hCG levels and ultrasound as clinically warranted.
[2024-04-07 12:45] LABS: Basophils Absolute Auto 0.1 K/mm3 (0.0-0.1); Basophils Percent Auto 0.9 % (0.2-1.2); Eosinophils Absolute Auto 0.1 K/mm3 (0-0.3); Eosinophils Percent Auto 1.4 % (0-4.4); Hematocrit 39.2 % (37.0-47.0); Hemoglobin 12.2 g/dL (12.0-15.0); Immature Granulocyte Absolute 0.03 K/mm3 (0.00-0.031); Immature Granulocyte Percent A 0.5 % (0-0.5); Lymphocytes Absolute Auto 1.56 K/mm3 (0.9-3.2); Lymphocytes Percent Auto 26.7 % (18.3-44.2); Mean Corpuscular HGB Conc 31.1 g/dl (32-36); Mean Corpuscular Hemoglobin 25.9 pg (26-34); Mean Corpuscular Volume 83.2 fl (80-100); Mean Platelet Volume 11.1 fl (7.4-10.4); Monocytes Absolute Auto 0.4 K/mm3 (0.1-0.6); Monocytes Percent Auto 6.3 % (2.6-8.5); Neutrophils Absolute Auto 3.8 K/mm3 (1.3-6.7); Neutrophils Percent Auto 64.2 % (45.5-73.1); Platelet Count Result 226 k/mm3 (150-375); Red Blood Count 4.71 M/mm3 (4.2-5.4); Red Cell Distribution Width 13.8 % (11.5-14.5); White Blood Count 5.8 K/mm3 (4.5-10.0)
[2024-04-07 12:49] LABS: Alanine Aminotransferase 13 U/L (6-35); Albumin Level 4.7 g/dL (3.5-5.1); Alkaline Phosphatase 59 U/L (38-126); Anion Gap 10 mmol/L (4-12); Aspartate Amino Transferase 22 U/L (14-36); Bilirubin,Total 0.4 mg/dL (0.2-1.3); Blood Urea Nitrogen 15 mg/dL (7-17); Carbon Dioxide 27 mmol/L (22-30); Chloride 101 mmol/L (98-107); Estimated Glomerular Filt Rate > 60; Glucose 95 mg/dL (65-110); Potassium 4.1 mmol/L (3.4-5.0); Sodium 138 mmol/L (137-145)
== END 2024-04-07 11:21 | disposition home or self-care (01) ==
LOC: ANHIMG 11:21
PROVIDERS: PCP Registered Nurse; Visit Provider Obstetrics & Gynecology
DX: O20.0 Threatened abortion (principal); Z3A.00 Weeks of gestation of pregnancy not specified
CPT/HCPCS: 36415; 76801; 76817; 80053; 84702; 85025

== ENCOUNTER 2024-04-11 10:16 | Outpatient (CLI) | payer OTHER, SELFPAY | END 2024-04-11 10:17 | disposition home or self-care (01) | LOC: ANHLAB 10:17 | PROVIDERS: Visit Provider Student in an Organized Health Care Education/Training Program | DX: O02.1 Missed abortion (principal) | CPT/HCPCS: 36415; 84702 ==

== ENCOUNTER 2024-04-14 11:12 | Outpatient (CLI) | payer OTHER, SELFPAY ==
--- NOTE | ~2024-04-14 | US_ITS ---
US OB <=14 wk fetus w TV Ordering provider: Amanuel Aleman MD History: . O36.80X0 - with inconclusive viability, n... . Comparison: None. Technique: Transabdominal and endovaginal ultrasound of the pelvis (Doppler ultrasound interrogation techniques used as needed for this exam.) FINDINGS: CERVIX: Trace of fluid. UTERUS: Measures 7.9x 3.2x 5.1 cm in length which is within normal limits and is anteverted. No myom etrial masses. ENDOMETRIUM: Normal in thickness measuring 5.5 mm. (Note: the premenopausal endometrium may measure u p to 16 mm when in the secretory phase.) No endometrial masses, cysts or fluid. CUL DE SAC: Trace of free fluid. RIGHT OVARY: Normal in size measuring 3.7x 2.7x 2.6 cm. Normal echotexture. Doppler vascular flow pre sent. LEFT OVARY: Normal in size measuring 3x 1.9x 1.8 cm. Normal echotexture. Doppler vascular flow presen t. ADNEXA: Normal. No mass. IMPRESSION: No evidence of intrauterine . No definite adnexal masses seen. Trace of fluid in the cervix and in the cul-de-sac. Otherwise, normal pelvic ultrasound. Reviewed, dictated and finalized at location A. IMPRESSION: No evidence of intrauterine . No definite adnexal masses seen. Trace o f fluid in the cervix and in the cul-de-sac. Otherwise, normal pelvic ultrasoun d.
== END 2024-04-14 11:13 | disposition home or self-care (01) ==
PROVIDERS: Visit Provider Student in an Organized Health Care Education/Training Program
DX: O02.1 Missed abortion (principal); O36.80X0 Pregnancy with inconclusive fetal viability, not applicable or unspecified; Z3A.00 Weeks of gestation of pregnancy not specified
CPT/HCPCS: 36415; 76801; 76817; 84702

== ENCOUNTER 2024-04-18 12:25 | Outpatient (CLI) | payer OTHER, SELFPAY | END 2024-04-18 12:26 | disposition home or self-care (01) | LOC: ANHLAB 12:26 | PROVIDERS: Visit Provider Student in an Organized Health Care Education/Training Program | DX: O36.80X0 Pregnancy with inconclusive fetal viability, not applicable or unspecified (principal); Z3A.00 Weeks of gestation of pregnancy not specified | CPT/HCPCS: 36415; 84702 ==

== ENCOUNTER 2024-04-25 12:24 | Outpatient (CLI) | payer OTHER, SELFPAY ==
[2024-04-25 13:09] LABS: Beta HCG Quantitative 388.16 mIU/ML
== END 2024-04-25 12:25 | disposition home or self-care (01) ==
PROVIDERS: Visit Provider Student in an Organized Health Care Education/Training Program
DX: O36.80X0 Pregnancy with inconclusive fetal viability, not applicable or unspecified (principal); Z3A.00 Weeks of gestation of pregnancy not specified
CPT/HCPCS: 36415; 84702

== ENCOUNTER 2024-05-02 11:32 | Outpatient (CLI) | payer OTHER, SELFPAY ==
[2024-05-02 12:17] LABS: Beta HCG Quantitative 172.18 mIU/ML
== END 2024-05-02 11:33 | disposition home or self-care (01) ==
LOC: ANHLAB 11:34
PROVIDERS: PCP Registered Nurse; Visit Provider Student in an Organized Health Care Education/Training Program
DX: O02.1 Missed abortion (principal)
CPT/HCPCS: 36415; 84702

== ENCOUNTER 2024-05-09 12:07 | Outpatient (CLI) | payer OTHER, SELFPAY ==
[2024-05-09 12:54] LABS: Beta HCG Quantitative 7.87 mIU/ML
== END 2024-05-09 12:08 | disposition home or self-care (01) ==
LOC: ANHLAB 12:08
PROVIDERS: PCP Registered Nurse; Visit Provider Student in an Organized Health Care Education/Training Program
DX: N94.89 Other specified conditions associated with female genital organs and menstrual cycle (principal)
CPT/HCPCS: 36415; 84702

== ENCOUNTER 2024-05-16 11:39 | Outpatient (CLI) | payer OTHER, SELFPAY ==
[2024-05-16 12:58] LABS: Beta HCG Quantitative < 2.39 mIU/ML
== END 2024-05-16 11:40 | disposition home or self-care (01) ==
LOC: ANHLAB 11:41
PROVIDERS: PCP Registered Nurse; Visit Provider Student in an Organized Health Care Education/Training Program
DX: O36.80X0 Pregnancy with inconclusive fetal viability, not applicable or unspecified (principal); Z3A.00 Weeks of gestation of pregnancy not specified
CPT/HCPCS: 36415; 84702

== ENCOUNTER 2024-06-03 14:22 | Outpatient (CLI) | payer OTHER, SELFPAY ==
[2024-06-03 15:10] LABS: Beta HCG Quantitative 127.85 mIU/ML
== END 2024-06-03 14:23 | disposition home or self-care (01) ==
LOC: ANHLAB 14:24
PROVIDERS: PCP Registered Nurse; Visit Provider Student in an Organized Health Care Education/Training Program
DX: N91.2 Amenorrhea, unspecified (principal)
CPT/HCPCS: 36415; 84702

== ENCOUNTER 2024-06-05 14:25 | Outpatient (CLI) | payer OTHER, SELFPAY ==
[2024-06-05 16:28] LABS: Beta HCG Quantitative 446.03 mIU/ML
== END 2024-06-05 14:26 | disposition home or self-care (01) ==
LOC: ANHLAB 14:25
PROVIDERS: PCP Registered Nurse; Visit Provider Student in an Organized Health Care Education/Training Program
DX: O36.80X0 Pregnancy with inconclusive fetal viability, not applicable or unspecified (principal); Z3A.00 Weeks of gestation of pregnancy not specified
CPT/HCPCS: 36415; 84702

== ENCOUNTER 2024-06-09 10:01 | Outpatient (CLI) | payer OTHER, SELFPAY | END 2024-06-09 10:02 | disposition home or self-care (01) | PROVIDERS: PCP Registered Nurse; Visit Provider Student in an Organized Health Care Education/Training Program | DX: N91.2 Amenorrhea, unspecified (principal) | CPT/HCPCS: 36415; 84702 ==

== ENCOUNTER 2024-06-20 04:38 | Emergency (ER) | payer OTHER, SELFPAY ==
[2024-06-20 04:40] VITALS: BP 112/65; PULSE 76; RESP 18; TEMP 36.4; O2SAT 99
[2024-06-20 08:42] VITALS: BP 111/50; PULSE 95; RESP 20; TEMP 36.9; O2SAT 99
[2024-06-20 09:46] VITALS: BP 122/73; PULSE 78; RESP 15; O2SAT 100
[2024-06-20 10:00] LABS: Basophils Absolute Auto 0.1 K/mm3 (0.0-0.1); Basophils Percent Auto 0.8 % (0.2-1.2); Eosinophils Percent Auto 0.3 % (0-4.4); Hematocrit 39.3 % (37.0-47.0); Hemoglobin 12.6 g/dL (12.0-15.0); Immature Granulocyte Absolute 0.06 K/mm3 (0.00-0.031); Immature Granulocyte Percent A 0.6 % (0-0.5); Lymphocytes Absolute Auto 1.58 K/mm3 (0.9-3.2); Lymphocytes Percent Auto 14.8 % (18.3-44.2); Mean Corpuscular HGB Conc 32.1 g/dl (32-36); Mean Corpuscular Hemoglobin 26.1 pg (26-34); Mean Corpuscular Volume 81.5 fl (80-100); Mean Platelet Volume 11.3 fl (7.4-10.4); Monocytes Absolute Auto 0.6 K/mm3 (0.1-0.6); Monocytes Percent Auto 5.4 % (2.6-8.5); Neutrophils Absolute Auto 8.3 K/mm3 (1.3-6.7); Neutrophils Percent Auto 78.1 % (45.5-73.1); Platelet Count Result 216 k/mm3 (150-375); Red Blood Count 4.82 M/mm3 (4.2-5.4); Red Cell Distribution Width 13.6 % (11.5-14.5); White Blood Count 10.7 K/mm3 (4.5-10.0)
[2024-06-20] MEDS: SODIUM CHLORIDE 0.9% IV 1,000 ML 999 ML IV CONT (10:01)
[2024-06-20 10:13] LABS: Alanine Aminotransferase 15 U/L (6-35); Albumin Level 4.7 g/dL (3.5-5.1); Alkaline Phosphatase 54 U/L (38-126); Anion Gap 5 mmol/L (4-12); Aspartate Amino Transferase 22 U/L (14-36); Bilirubin,Total 0.7 mg/dL (0.2-1.3); Blood Urea Nitrogen 15 mg/dL (7-17); Carbon Dioxide 24 mmol/L (22-30); Chloride 106 mmol/L (98-107); Estimated Glomerular Filt Rate > 60; Glucose 86 mg/dL (65-110); Sodium 135 mmol/L (137-145)
--- NOTE | 2024-06-20 10:20 | ED.GENADULT ---
HPI - General Adult General Chief complaint: Nausea/Vomiting/Diarrhea Stated complaint: 6 weeks , N/V Time Seen by Provider: 06/20/24 09:42 History of Present Illness HPI narrative: 24-year-old female who is approximately 6 weeks presents to the emergency department for evaluation for persistent nausea vomiting. Patient has not yet had an ultrasound with this but is scheduled to have follow-up with OB Gyne. Patient was prescribed Reglan for her nausea and vomiting but she states this did not help. Patient states she is having some abdominal cramping with emesis but denies any vaginal bleeding denies any vaginal discharge. Patient is well-appearing at time of evaluation. Related Data Allergies Allergy/AdvReac Type Severity Reaction Status Date / Time No Known Allergies Allergy Verified 06/20/24 09:45 Review of Systems Review of Systems: All systems reviewed & are unremarkable except as noted in HPI and below PMFSH Past Medical History Medical History Patient denies significant medical history Surgical History Surgical History History of orthopedic surgery L knee ~2017 Family History Family History Other Diabetes mellitus Hypertension Social History Social History Smoking status: Never smoker Alcohol intake: never Substance use: never Substance use type: does not use Do You Feel Safe in your Home?: Yes Lack of Transportation: No Lack of Food: Never True Current Housing: I Have Housing Concerned About Future Housing: No Difficulty Paying Gas/Electric Bills: No Difficulty Paying for Meds: No Currently Unemployed: Decline to Answer Education: High School Diploma/GED Difficulty w/ Childcare or Family Care: No Living arrangements: with family Occupation/Education: other Gender identity (if verbalized by the patient): Female Sexual Orientation (if Verbalized by the Patient): Straight or Heterosexual Exam Narrative: APPEARANCE: Well appearing, no pain, no distress, well-nourished. HEAD: normocephalic, atraumatic. EYES: PERRLA/EOMI, conjunctivae clear. NOSE: Normal no drainage EARS:TMS clear with good light reflex. THROAT: Pharynx clear, no exudate. NECK: Supple. No adenopathy, no masses. RESPIRATORY: Airway patent, respirations nonlabored. Clear to auscultation bilaterally, no rales, rhonchi, wheezing. CARDIOVASCULAR: Regular rate and rhythm without murmurs rubs or gallops. ABDOMINAL: Soft, nontender, nondistended, normal bowel sounds MUSCULOSKELETAL: Moves all extremities. Strength/ROM intact, No edema, No calf tenderness. NEURO: Alert. Cranial nerves II through XII intact. Grossly intact SKIN: Warm, dry. Normal Color Course Vital Signs Vital signs: Vital Signs Temperature 97.6 F 06/20/24 04:40 Pulse Rate 76 06/20/24 04:40 Respiratory Rate 18 06/20/24 04:40 Blood Pressure 112/65 06/20/24 04:40 Pulse Oximetry 99 06/20/24 04:40 Oxygen Delivery Room Air 06/20/24 04:40 Temperature 98.4 F 06/20/24 08:42 Pulse Rate 98 06/20/24 14:40 Respiratory Rate 22 H 06/20/24 14:40 Blood Pressure 112/61 06/20/24 14:40 Pulse Oximetry 98 06/20/24 14:40 Oxygen Delivery Room Air 06/20/24 04:40 Medical Decision Making MDM Narrative Medical decision making narrative: 24-year-old female presenting to the emergency department for evaluation for nausea and vomiting. Patient is approximately 6 weeks . Patient denies any vaginal bleeding vaginal discharge. Patient is afebrile but does have a leukocytosis of 10.7 and a stable hemoglobin of 12.6. No acute abnormalities on the patient's CMP UA was negative for infection patient was negative for influenza RSV and for COVID. Patient states initially the IV medications did help with her nausea in but it did return. Patient was treated with additional medications. Differential Diagnosis Differential Diagnosis: COVID, RSV, influenza, gastroenteritis, gastritis, UTI, hyperemesis gravidarum Vital Signs Vital Signs: Vital Signs Temperature 97.6 F 06/20/24 04:40 Pulse Rate 76 06/20/24 04:40 Respiratory Rate 18 06/20/24 04:40 Blood Pressure 112/65 06/20/24 04:40 Pulse Oximetry 99 06/20/24 04:40 Oxygen Delivery Room Air 06/20/24 04:40 Temperature 98.4 F 06/20/24 08:42 Pulse Rate 98 06/20/24 14:40 Respiratory Rate 22 H 06/20/24 14:40 Blood Pressure 112/61 06/20/24 14:40 Pulse Oximetry 98 06/20/24 14:40 Oxygen Delivery Room Air 06/20/24 04:40 Lab Data Lab results reviewed: Yes I reviewed the patient's lab results. 06/20/24 09:54 06/20/24 09:54 Labs: Lab Results 06/20/24 06/20/24 06/20/24 Range/Units 09:54 10:00 12:58 WBC 10.7 H (4.5-10.0) K/mm3 RBC 4.82 (4.2-5.4) M/mm3 Hgb 12.6 (12.0-15.0) g/dL Hct 39.3 (37.0-47.0) % MCV 81.5 (80-100) fl MCH 26.1 (26-34) pg MCHC 32.1 (32-36) g/dl RDW 13.6 (11.5-14.5) % Plt Count 216 (150-375) k/mm3 MPV 11.3 H (7.4-10.4) fl Immature Gran % (Auto) 0.6 H (0-0.5) % Neut % (Auto) 78.1 H (45.5-73.1) % Lymph % (Auto) 14.8 L (18.3-44.2) % [place] % (Auto) 5.4 (2.6-8.5) % Eos % (Auto) 0.3 (0-4.4) % Baso % (Auto) 0.8 (0.2-1.2) % Lymph # (Auto) 1.58 (0.9-3.2) K/mm3 [place] # (Auto) 0.6 (0.1-0.6) K/mm3 Eos # (Auto) 0.0 (0-0.3) K/mm3 Baso # (Auto) 0.1 (0.0-0.1) K/mm3 Abs Immat Gran (auto) 0.06 H (0.00-0.031) K/mm3 Absolute Neuts (auto) 8.3 H (1.3-6.7) K/mm3 Absolute Nucleated RBC 0.000 (0.0-0.012) K/mm3 Nucleated RBC % 0.0 (0.0-0.2) % Sodium 135 L (137-145) mmol/L Potassium 4.0 (3.4-5.0) mmol/L Chloride 106 (98-107) mmol/L Carbon Dioxide 24 (22-30) mmol/L Anion Gap 5 (4-12) mmol/L BUN 15 (7-17) mg/dL Creatinine 0.70 (0.7-1.0) mg/dL Estim Creat Clear Calc Not Reportable Estimated GFR > 60 (59 - ) Glucose 86 (65-110) mg/dL Calcium 10.0 (8.4-10.2) mg/dL Total Bilirubin 0.7 (0.2-1.3) mg/dL AST 22 (14-36) U/L ALT 15 (6-35) U/L Alkaline Phosphatase 54 (38-126) U/L Total Protein 8.0 (6.3-8.2) g/dL Albumin 4.7 (3.5-5.1) g/dL Urine Color Yellow Yellow (Yellow) Urine Appearance Clear Clear (Clear) Urine pH 7.5 7.5 (5.0-9.0) Ur Specific [place] 1.026 1.023 (1.001-1.035) Urine Protein Trace Negative (Negative) mg/dL Urine Glucose (UA) Negative Negative (Negative) mg/dL Urine Ketones 4+ H 4+ H (Negative) mg/dL Ur Blood (Man) Negative Negative (Negative) Urine Nitrate Negative Negative (Negative) Urine Bilirubin Negative Negative (Negative) Urine Urobilinogen 1.0 1.0 (<2.0) mg/dL Leukocyte Esterase Rfl Trace H Negative (Negative) EKTA/UL Urine RBC 3-5 H (0-2) /hpf Urine WBC 0-5 (0-3) /hpf Ur Squamous Epith Cells Occasional (Few) /hpf Urine Bacteria Rare /hpf Urine Casts 0-2 Influenza A (RT-PCR) Negative (Negative) Influenza B (RT-PCR) Negative (Negative) RSV (RT-PCR) Negative (Negative) SARS-CoV-2 RNA (RT-PCR) Negative (Negative) Discharge Plan Discharge Clinical Impression: Nausea & vomiting Patient Disposition: Home, Self-Care Condition: Stable Instructions: Antibiotic Form, Nausea and Vomiting in (ED), Clear Liquid Diet (ED) Additional Instructions: Zofran as needed for nausea control. Reglan as needed for additional nausea control. Clear liquid diet for the next 1-3 days. Have close follow-up with your OB Gyne and with your primary care physician. If you have any worsening symptoms then please call or return to the emergency department. Patient Language: Nepali Prescriptions: New ondansetron 4 mg tablet,disintegrating 4 mg PO Q8H PRN (Reason: nausea and vomiting) Qty: 14 0RF No Action metoclopramide HCl [Reglan] 10 mg tablet 10 mg PO Q6H PRN (Reason: nausea and vomiting) Qty: 20 2RF Follow-up/Referrals: Bar,JAYDA Pearson [Primary Care Provider] -
[2024-06-20 10:36] LABS: Add Urine Microscopic? YES; Appearance Urine Clear (Clear); Bacteria Urine Rare /hpf; Bilirubin Urine Negative (Negative); Blood Urine Negative (Negative); Color Urine Yellow (Yellow); Glucose Urine UA Negative (Negative); Ketones Urine 4+ mg/dL (Negative); Leukocyte Esterase Ur Trace LEU/UL (Negative); Nitrate Urine Negative (Negative); Non Pathogenic Casts 0-2; Protein Urine Trace mg/dL (Negative); Specific Grav Ur 1.026 (1.001-1.035); Squamous Epithelial Cell Urine Occasional /hpf (Few); WBC Urine 0-5 /hpf (0-3); pH Urine 7.5 (5.0-9.0)
[2024-06-20 10:55] LABS: Influenza A QL RT-PCR Negative (Negative); Influenza B QL RT-PCR Negative (Negative); RSV RNA, RT-PCR Negative (Negative); SARS-CoV-2 RNA PCR Negative (Negative)
[2024-06-20 11:58] VITALS: BP 107/60; PULSE 86; RESP 24; O2SAT 100
[2024-06-20] MEDS: ONDANSETRON INJ 4 MG/2 ML VIAL IV PUSH (13:10)
[2024-06-20 13:36] LABS: Add Urine Microscopic? NO; Appearance Urine Clear (Clear); Bilirubin Urine Negative (Negative); Blood Urine Negative (Negative); Color Urine Yellow (Yellow); Glucose Urine UA Negative (Negative); Ketones Urine 4+ mg/dL (Negative); Leukocyte Esterase Ur Negative LEU/UL (Negative); Nitrate Urine Negative (Negative); Protein Urine Negative (Negative); Specific Grav Ur 1.023 (1.001-1.035); pH Urine 7.5 (5.0-9.0)
[2024-06-20 14:40] VITALS: BP 112/61; PULSE 98; RESP 22; O2SAT 98
--- OUTSIDE RECORDS SUMMARY | 2024-06-27 10:15 | XMS_ITS | Clinical Summary ---
Author Organization [facility] Address [address] [place] [address] Care Team Providers Care Grip Boss Name Role Phone Michel Dinero FILM COATER-MANAGEMENT AND BUDGET ANALYST Primary Care Pro vider Source Comments [facility],non-owned Affiliates and Associated Physician Practices is amultiple site organization consisting of ambulatory clinics and hospital sitesin [place], [place], [place] and [place]. This disclosure is being madepursuant to the Care Everywhere program and may not contain all information available regarding this patient. Last updated 18.[employer] [facility] Allergies No known active allergies Medications * Be aware that medications may not be up to date on this document. Alwaysverify current medications with the patient. Medication Sig Dispensed Refills Start Date End Date Status cetirizine (ZYRTEC) 10 MG tablet Take 10 mg by mouth once daily Active Active Problems Problem Noted Date Diagnosed Date s/p Excision of medial dista l femur osteochondroma on 12/19/16 01/21/2017 Knee pain, bilateral 12/22/2013 Pain in joint, ankle and foot 12/22/2013 Osteochondroma of femur 12/22/2013 Family History Medical History Relation Name Comments Anesthesia Reaction Neg Hx Social History Tobacco Use Types Packs/Day Years Used Date Smoking Tobacco: Passive Smo ke Exposure - Never Smoker Smokeless Tobacco: Never Sex and Gender Information Value Date Recorded Sex Assigned at Not on file Gender Identity Not on file Sexual Orientation Not on file Last Filed Vital Signs Vital Sign Reading Time Taken Comments Blood Pressure 120/83 12/19/2016 1:45 PM CDT Pulse 88 12/19/2016 1:45 PM CDT Temperature 35.8 ??C (96.4 ??F) 12/19/2016 1:06 PM CD T Respiratory Rate 14 12/19/2016 1:45 PM CDT Oxygen Saturation 100% 12/19/2016 1:45 PM CDT Inhaled Oxygen Concentration - - Weight 50.7 kg (111 lb 12.4 oz) 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 Height 154.5 cm (5' 0.83 ) 12/19/2016 7:30 AM CD T Body Mass Index - - Plan of Treatment Health Maintenance Due Date Last Done Comments PAP SMEAR 2002 HIV SCREENING 2017 HPV VACCINE (1 - 3-dose series) 2017 CHLAMYDIA/GONORRHEA SCREENING 2018 HEPATITIS C SCREENING 03/06/2020 DTAP/TDAP/TD VACCINES (1 - Tdap) 2021 HEPATITIS B VACCINE (1 of 3 - 19+ 3-dose series) 2021 DEPRESSION SCREENING 06/25/2023 COVID-19 VACCINE (1 - 2023-2 5 season) 2024 INFLUENZA VACCINE (#1) 2024 ZOSTER VACCINE (1 of 2) 2052 HIB VACCINE Aged Out No longer eligi ble based on patient's age to complete this topic MENINGOCOCCAL VACCINE Aged Out No rafia rigo eligible based on patient's age to complete this topic PNEUMOCOCCAL VACCINE Aged Out No long er eligible based on patient's age to complete this topic Care Teams Grip Boss Relationship Specialty Start Date End Date Michel Dinero APRN-TONY [address] [place] [phone] PCP - General Nurse Practitioner 12/11/13
--- OUTSIDE RECORDS SUMMARY | 2024-06-27 10:16 | XMS_ITS | Encounter Summary ---
Author Organization [facility] Address [address] [place] [address] Care Team Providers Care Biofuels Engineering Manager Name Role Phone Unavailable Primary Care Provider Unavailabl e Encounter Details Date Type Department Care Team (Late st Contact Info) Description 06/30/2021 12:15 PM PRACTICE SPECIALIST Rapid Evaluation [place] [facility] Community Testing [address] [address] Social History Tobacco Use Types Packs/Day Years Used Date Smoking Tobacco: Never Assessed Comments Unknown Sex and Gender Information Value Date Recorded Sex Assigned at Not on file Legal Sex Female 2:06 PM CDT Gender Identity Not on file Sexual Orientation Not on file documented as of this encounter Plan of Treatment Not on file documented as of this encounter Visit Diagnoses Not on filedocumented in this encounter
--- OUTSIDE RECORDS SUMMARY | 2024-06-27 10:16 | XMS_ITS | Clinical Summary ---
Author Organization [facility] Care Team Providers Care Sandwich Counter Attendant Name Role Phone Unavailable Primary Care Provider Unavailabl e Social History Tobacco Use Types Packs/Day Years Used Date Smoking Tobacco: Never Assessed Comments Unknown Sex and Gender Information Value Date Recorded Sex Assigned at Not on file Legal Sex Female 2:06 PM CDT Gender Identity Not on file Sexual Orientation Not on file Plan of Treatment Health Maintenance Due Date Last Done Comments Hepatitis C Virus (HCV) Screening 2002 SARS-COV-2 Immunization ( season) 2023 10/18/2020, 09/27/2020 Pap Smear 2023 Influenza Immunization (Season Ended) 2024 04/08/2021, 04/28/2020, 05/07/2019, Additional history exists Pneumococcal Immunization Combined Aged Out 11/24/2005 No longer eligible based on patient's age to complete this topic Hepatitis B Immunization Completed 007, 2002, 2002, Additional history exists Human Papillomavirus (HPV) Immunization Completed 09/13/2011, 05/15/2011, 03/13/2011 DTaP/Tdap/Td Immunization Discontinued 2013, 07/10/2006, 12/10/2003, Additional history exists TdaP Immunization Completed 12/10/2013 Meningococcal Immunization (ACWY) Completed 03/28/2018, 03/28/2016, 03/13/2011 Rotavirus Immunization Aged Out No lo nger eligible based on patient's age to complete this topic
--- OUTSIDE RECORDS SUMMARY | 2024-06-27 10:16 | XMS_ITS | Encounter Summary ---
Author Organization [facility] Address [address] [place] [address] Care Team Providers Care Menswear Salesperson Name Role Phone Michel Dinero RN OR LPN-FAMILY CONSUMER SCIENTIST Primary Care Pro vider Reason for Visit * Reason Comments Surgical Follow-up left medial distal f emur osteochondroma Encounter Details Date Type Department Care Team (Latest Contact Info) Description 01/05/2017 9:35 AM CDT - 01/05/2017 11:59 PM T Hospital Encounter [facility] Pediatrics - Orthopedics [address] [place] [address] Jag Tijerina MD [address] [place] [phone] Discharge Disposition: Home or Self Care Social History Tobacco Use Types Packs/Day Years Used Date Smoking Tobacco: Passive Smo ke Exposure - Never Smoker Smokeless Tobacco: Never Sex and Gender Information Value Date Recorded Sex Assigned at Not on file Gender Identity Not on file Sexual Orientation Not on file documented as of this encounter Functional Status Functional Status Response Date of Assess ment Is person deaf or have serious hearing difficult y? No 12/19/2016 Is person blind or have serious difficulty seein g? No 12/19/2016 Does person have serious dif ficulty walking/climbing stairs? No 12/19/2016 Does person have difficulty dressing/bathing? No 12/19/2016 Does person have difficulty doing errands alone? No 12/19/2016 Cognitive Status Response Date of Assessm ent Does person have difficulty concentrating/remembering/making decisions? No 12/19/2016 documented as of this encounter Discharge Instructions * Patient Instructions* Shan Cintron MD - 01/05/2017 9:54 AM CDT ORTHOPAEDIC CLINIC DISCHARGE INSTRUCTIONS SHEET DIAGNOSIS: 1. Osteochondroma of femur, left Follow Up: not needed X-Rays next visit: No Medications prescribed: OTC analgesics Physicians orders: ?? Further diagnostic studies discussed and ordered: none ?? Therapy services - None School Excuse: Excused from School on 01/05/2017 Activity Restrictions: none To make an appointment, please call . To schedule the surgery discussed with the doctor during your child's office visit, call Smita at , ext. 1. If you have a question for the orthopaedic nurse, Gianni Barrientos, call [phone], ext. [phone]. If you have a question for Dr. Tijerina, you may leave a voicemail for him at , e-mailat [email or web address], or through [employer]. You can Like him on [email or web address] at [email or web address]. After visit summary completed by Shan Cintron MD. documented in this encounter Medications at Time of Discharge Medication Sig Dispensed Refills Start Date End Date cetirizine (ZYRTEC) 10 MG tablet Take 10 mg by mouth once daily HYDROcodone-acetaminophen (NORCO) 5-325 MG tablet Take 1 Tab by mouth every 4 hours as needed for Pain 20 Tab 12/19/2016 07/16/2017 documented as of this encounter Progress Notes * Jag Tijerina MD - 01/05/2017 9:46 AM CDT PEDIATRIC ORTHOPAEDIC CLINIC NOTE NAME: Tameka Sorto DATE OF SERVICE: 01/05/2017 DATE: 2000 PCP: Michel Dinero APRN-TONY Chief Complaint Patient presents with ??? Surgical Follow-up left medial distal femur osteochondroma DOS: 12/19/16 PROCEDURE: Excision of medial distal femur osteochondroma, SUBJECTIVE: Tameka Sorto is a 16 y.o. 10 m.o. female who presents 2 week(s) status post excision ofmedial distal femur osteochondroma, . She has had no problems with eating, bowel movements, voiding, or their wound. She is doing well without problems. MEDICATIONS: has a current medication list which includes the following prescription(s): hydrocodone-acetaminophen and cetirizine. ALLERGIES: Review of patient's allergies indicates no known allergies. REVIEW OF SYSTEMS: History obtained from the patient. A 12 point ROS was obtained and all others were negative except what is listed in the HPI. PHYSICAL EXAMINATION:There were no vitals taken for this visit. General appearance: She has good head control. Orientation: alert, cooperative, no distress. Mood&affect: both mood and affect are normal Spine: not examined. Extremities: The non-op right lower extremity was examined and demonstrated normal skin, normal range of motion and alignment of all joint, normal motor, sensory and vascular examination, and was without pain. Itwas used for comparison when examining the operative left lower extremity. The examination was performed: Incision: healing well. Swelling: none Tenderness: none. Deformity: No ROM: normal and full of knee Strength: normal Gait: normal Neurological Exam: normal Vascular Exam: normal RADIOLOGY: not taken. ASSESSMENT: 16 y.o. 10 m.o. female status post excision of medial distal femur osteochondroma,: 1. Osteochondroma of femur, left 2. s/p Excision of medial distal femur osteochondroma on 12/19/16 PLAN: 1. Questions solicited and answered. 2. Patient voiced understanding to info/instructions given. 3. Dressing: na 4. Medications Prescribed: none 5. Activity Restrictions: none 6. Weightbearing status: No Restrictions 7. Follow up: as needed. ATTENDING ATTESTATION STATEMENT I have personally seen and evaluated Tameka with the resident. I confirm the alexandre elements of the history to include: Chief Complaint Patient presents with ??? Surgical Follow-up left medial distal femur osteochondroma I have discussed the results of the physical exam and all studies with Tameka and her family. I confirm the alexandre elements of the physical exam. I have reviewed all radiographic studies with the resident and confirm the assessment. I developed the above assessment and discussed it with Tameka's family.The primary encounter diagnosis was Osteochondroma of femur, left. A diagnosis of s/p Excision of me dial distal femur osteochondroma on 12/19/16 was also pertinent to this visit. I confirm the alexandre elements of the plan of care . documented in this encounter Plan of Treatment Not on file documented as of this encounter Visit Diagnoses Diagnosis Osteochondroma of femur, left- Primary s/p Excision of medial distal femur osteochondroma on 12/19/16 Other postprocedural status documented in this encounter Care Teams Menswear Salesperson Relationship Specialty Start Date End Date Michel Dinero, LEXI-TONY [address] [place] [phone] PCP - General Nurse Practitioner 12/11/13 documented as of this encounter
--- OUTSIDE RECORDS SUMMARY | 2024-06-27 10:16 | XMS_ITS | Encounter Summary ---
Author Organization [facility] Address [address] [place] [address] Care Team Providers Care Linen Supply Load Builder Name Role Phone Michel Dinero NURSE UNIT MANAGER-FLEXO FOLDER GLUER OPERATOR Primary Care Pro vider Encounter Details Date Type Department Care Team (Latest Contact Info) Description 12/22/2013 11:05 AM CDT - 12/22/2013 11:19 AM CDT Hospital Encounter [facility] Pediatrics - Radiology [address] [place] [address] Jag Tijerina MD [address] [place] [address] Discharge Disposition: Home or Self Care Social History Tobacco Use Types Packs/Day Years Used Date Smoking Tobacco: Never Assessed Sex and Gender Information Value Date Recorded Sex Assigned at Not on file Gender Identity Not on file Sexual Orientation Not on file documented as of this encounter Plan of Treatment Not on file documented as of this encounter Procedures Procedure Name Priority Date/Time Associated Diagnosis Comments XR KNEE RIGHT 3VW Routine 12/22/2013 11: 13 AM CDT Knee pain, bilateral XR KNEE LEFT 3VW Routine 12/22/2013 11:1 3 AM CDT Knee pain, bilateral documented in this encounter Results * XR KNEE 3 VW RIGHT (12/22/2013 11:13 AM CDT) Anatomical Region Laterality Modality Lower Extremity Radiographic Leeanne ging 12/22/2013 11:4 2 AM CDT Impressions 12/22/2013 11:43 AM CDT Small fibrous cortical defect involving the posterior medial aspect of the distal femur. No other osseous or articular abnormalities are seen. Narrative 12/22/2013 11:43 AM CDT 3 views of the right knee performed December 22, 2013. History: Right knee pain. AP, lateral, and sunrise views of the right knee were obtained. There is a tiny benign fibrous cortical defect involving the posteromedial aspect of the distal femur. No other osseous, articular, or soft tissue abnormalities are seen. Procedure Note Sneha Jimenez MD - 12/25/2013 3 views of the right knee performed December 22, 2013. History: Right knee pain. AP, lateral, and sunrise views of the right knee were obtained. There is a tiny benign fibrous cortical defect involving the posteromedial aspect of the distal femur. No other osseous, articular, or soft tissue abnormalities are seen. IMPRESSION Small fibrous cortical defect involving the posterior medial aspect of the distal femur. No other osseous or articular abnormalities are seen. [facility] * XR KNEE 3 VW LEFT (12/22/2013 11:13 AM CDT) Anatomical Region Laterality Modality Lower Extremity Radiographic Leeanne ging 12/22/2013 11:4 3 AM CDT Impressions 12/22/2013 11:44 AM CDT Osteochondroma arising from the anteromedial aspect of the distal femur. Narrative 12/22/2013 11:44 AM CDT 3 views of the left knee performed December 22, 2013. History: Knee pain. AP, lateral, and sunrise views of the left knee were obtained. No prior films are available for comparison. There is an osteochondroma arising from the anteromedial aspect of the distal left femur. No other osseous, articular, or soft tissue abnormalities are seen. Procedure Note Sneha Jimenez MD - 12/25/2013 3 views of the left knee performed December 22, 2013. History: Knee pain. AP, lateral, and sunrise views of the left knee were obtained. No prior films are available for comparison. There is an osteochondroma arising from the anteromedial aspect of the distal left femur. No other osseous, articular, or soft tissue abnormalities are seen. IMPRESSION Osteochondroma arising from the anteromedial aspect of the distal femur. [facility] MADDIE documented in this encounter Visit Diagnoses Diagnosis Pain in joint, ankle and foot, left- Primary Knee pain, bilateral Pain in joint, lower leg Pain in joint, ankle and foot, right Effusion of ankle and foot joint, right documented in this encounter Care Teams Linen Supply Load Builder Relationship Specialty Start Date End Date Michel Dinero, LEXI-TONY [address] [place] [phone] PCP - General Nurse Practitioner 12/11/13 documented as of this encounter
--- OUTSIDE RECORDS SUMMARY | 2024-06-27 10:16 | XMS_ITS | Encounter Summary ---
Author Organization [facility] Address [address] [place] [address] Care Team Providers Care Oil Recovery Unit Operator Name Role Phone Michel Dinero DIRECTOR ORANGE-SHUTTLE REPAIRER Primary Care Pro vider Reason for Visit * Reason Comments Establish Care per patient she is h ere for bilateral knee pain and foot pain. also here for a bone that stick out of her left thigh that is hurting her. Encounter Details Date Type Department Care Team (Latest Contact Info) Description 12/22/2013 8:45 AM CDT - 12/22/2013 11:04 AM CDT Hospital Encounter [facility] Pediatrics - Orthopedics [facility] [place] [address] Jag Tijerina MD [address] [place] [address] [address] [place] [address] Discharge Disposition: Home or Self Care Social History Tobacco Use Types Packs/Day Years Used Date Smoking Tobacco: Never Assessed Sex and Gender Information Value Date Recorded Sex Assigned at Not on file Gender Identity Not on file Sexual Orientation Not on file documented as of this encounter Discharge Instructions * Patient Instructions* Danni Geiger PA - 12/22/2013 11:41 AM CDT ORTHOPAEDIC CLINIC DISCHARGE INSTRUCTIONS SHEET DIAGNOSIS: 1. Knee pain, unspecified laterality 2. Knee pain, bilateral 3. Pain in joint, ankle and foot, unspecified laterality Follow Up: Please make a return appointment for 6 week(s). If you cannot keep an appointment, please call and notify Activity Restrictions/Excuses: none ?? Excused from School on 12/22/2013 Medications prescribed: OTC acetaminophen, OTC ibuprofen Physicians orders: none. ?? Physical therapy - Yes with daily home program To make an appointment, please call . To schedule the surgery discussed with the doctor during your child's office visit, call Smita at [phone], ext. [phone]. If you have a question for the orthopaedic nurse, call [phone], ext. [phone]. If you have a question for Dr. Tijerina, you may leave a voicemail for him at or you can contact him on [place] at [email or web address]. After visit summary completed by BEN Gaona. documented in this encounter Progress Notes * Danni Geiger PA - 12/22/2013 10:36 AM CDT PEDIATRIC ORTHOPAEDIC CLINIC NOTE NAME: Tameka Sorto DATE OF SERVICE: 12/22/2013 DATE: 2000 PCP: Michel Dinero Chief Complaint Patient presents with ??? Establish Care per patient she is here for bilateral knee pain and foot pain. also here for a bone that stick out of her left thigh that is hurting her. SUBJECTIVE: Tameka presents for a new patient evaluation. Tameka Sorto is a 13 y.o. female who presents with complaint of bilateral knee and ankle pain. This began 6 months ago. She did have an injuryto the left knee when her little sister hit her in the knee with her elbow and she felt like something moved in her knee. Mom has also noticed a growth on the left knee. It is painful occasionally.Tameka was referred by her PCP. She has been attending physical therapy for 2 weeks. Pain: stable, [id number]-[id number] joint symptoms intermittently, reasonably well controlled by PRN meds Neurological complaints: no Vascular complaints: none Associated symptoms: none; denies catching, locking, or swelling of either knee Previous workup: none IMMUNIZATIONS: Immunization status: stated as current, but no records available. PAST MEDICAL HISTORY: has a past medical history of pre diabetes. PAST SURGICAL HISTORY: has past surgical history that includes negative surgical history. MEDICATIONS: none. ALLERGIES: Review of patient's allergies indicates no known allergies. SOCIAL HISTORY: Tameka lives with her mother and stepfather. Tameka does attend school, going into 6th grade. Tameka is involved in no extracurricular activities. FAMILY HISTORY: Family history is negative for genetic conditions affecting children. has no familystatus information on file. REVIEW OF SYSTEMS: History obtained from mother. A 12 point ROS was obtained and all others were negative except what is listed in the HPI. PHYSICAL EXAMINATION: General appearance: She has good head control. Orientation: alert, cooperative, no distress. Mood&affect: both mood and affect are normal Lungs: exam not performed Heart: exam not performed Abdomen: exam not performed Spine: exam not performed Extremities: Bilateral upper extremity Skin - No rashes or abnormal dyspigmentation Inspection - No swelling, erythema, deformity, atrophy or hypertrophy noted Tenderness - absent Joint effusion - absent Range of motion - full range of motion Stability - stable Bilateral lower extremity Skin - No rashes or abnormal dyspigmentation Inspection - No swelling, erythema, deformity, atrophy or hypertrophy noted on the right side; there is a visible, palpable mass present on the medial aspect of the distal femur on the left; it is firm, non mobile and non tender to palpation Tenderness - present throughout patellar tendon bilaterally as well as achilles tendon bilaterally;nontender to palpation at medial or lateral joint line of her knees; Joint effusion - absent Range of motion - full range of motion Stability - stable; knees are stable to valgus/varus stress and anterior/posterior drawer as well as Kofi exams are negative Neuro: Strength - normal throughout upper and lower extremities Sensation - normal all four extremities Tone - Muscle tone normal Gait: normal gait and stance, nonspastic RADIOLOGY: taken and reviewed Bilateral knee films AP, lateral and sunrises views- left distal femur osteochondroma medially; Weight bearing AP and lateral ankle films were taken and reviewed today which show no obvious osseous abnormalities. ASSESSMENT: 1. Knee pain, unspecified laterality 2. Knee pain, bilateral 3. Pain in joint, ankle and foot, unspecified laterality 4. Osteochondroma of femur, left PLAN: 1. Questions solicited and answered. 2. Patient voiced understanding to info/instructions given. 3. Continue with existing conservative treatment program. 4. Continue physical therapy - 2x/week for 6 weeks with home program daily - new prescription giventoday 5. Medications Prescribed: none 6. Activity Restrictions: none 7. Weightbearing status: No Restrictions 8. Follow up: in 6 week(s) ?? With PA - Yes ?? X-Rays - no documented in this encounter Plan of Treatment Not on file documented as of this encounter Results * XR ANKLE 2 VW RIGHT (12/22/2013 11:26 AM CDT) Anatomical Region Laterality Modality Lower Extremity Radiographic Leeanne ging 12/22/2013 11:4 5 AM CDT Impressions 12/22/2013 11:45 AM CDT Mild right ankle varus with small ankle effusion. No evidence of acute fracture. Narrative 12/22/2013 11:45 AM CDT Standing frontal and lateral views of the right ankle performed December 22, 2013. History: Ankle pain. Standing frontal and lateral views of the right ankle were obtained. No prior films are available for comparison. There is no evidence of acute fracture or subluxation. The ankle mortise appears intact. There is suggestion of a small ankle effusion on the lateral film. In addition, there is mild varus deformity on the frontal film. Procedure Note Sneha Jimenez MD - 12/22/2013 Standing frontal and lateral views of the right ankle performed December 22, 2013. History: Ankle pain. Standing frontal and lateral views of the right ankle were obtained. No prior films are available for comparison. There is no evidence of acute fracture or subluxation. The ankle mortise appears intact. There is suggestion of a small ankle effusion on the lateral film. In addition, there is mild varus deformity on the frontal film. IMPRESSION Mild right ankle varus with small ankle effusion. No evidence of acute fracture. Danni CONTRERAS DIAGNOSTIC IMAGING O RDERABLES * XR ANKLE 2 VW LEFT (12/22/2013 11:26 AM CDT) Anatomical Region Laterality Modality Lower Extremity Radiographic Leeanne ging 12/22/2013 11:4 6 AM CDT Impressions 12/22/2013 11:46 AM CDT No abnormality is seen. Narrative 12/22/2013 11:46 AM CDT 2 views of the left ankle performed standing on December 22, 2013. History: Ankle pain. Standing frontal and lateral views of the left ankle were obtained. There is no evidence of fracture, subluxation, or joint effusion. The ankle mortise appears intact. Procedure Note Sneha Jimenez MD - 12/22/2013 2 views of the left ankle performed standing on December 22, 2013. History: Ankle pain. Standing frontal and lateral views of the left ankle were obtained. There is no evidence of fracture, subluxation, or joint effusion. The ankle mortise appears intact. IMPRESSION No abnormality is seen. Danni CONTRERAS DIAGNOSTIC IMAGING O RDERABLES * XR KNEE 3 VW RIGHT (12/22/2013 [...] documented in this encounter Visit Diagnoses Diagnosis Knee pain, unspecified laterality- Primary Knee pain, bilateral Pain in joint, lower leg Pain in joint, ankle and foot, unspecified laterality Osteochondroma of femur, left Pain in joint, ankle and foot, left- Primary Knee pain, bilateral Pain in joint, lower leg Pain in joint, ankle and foot, right Effusion of ankle and foot joint, right Osteochondroma of lower leg, left- Primary Pain in joint, ankle and foot, unspecified laterality documented in this encounter Care Teams Oil Recovery Unit Operator Relationship Specialty Start Date End Date Michel Dinero APRN-TONY [address] [place] [phone] PCP - General Nurse Practitioner 12/11/13 documented as of this encounter
--- OUTSIDE RECORDS SUMMARY | 2024-06-27 10:16 | XMS_ITS | Encounter Summary ---
Author Organization [facility] Address [address] [place] [address] Care Team Providers Care Retail Bakery Manager Name Role Phone Unavailable Primary Care Provider Unavailabl e Encounter Details Date Type Department Care Team (Late st Contact Info) Description 06/30/2021 Lab Requisition [facility] Community Testing [facility] [address] [place] [address] Papo Heck MD [address] [place] [address] [address] [place], [place] [id number] Social History Tobacco Use Types Packs/Day Years [...] Procedure Name Priority Date/Time Associated Diagnosis Comments SARS-COV-2 PCR [facility] ONLY Routine 06/30/2021 12:43 PM BUSINESS CONSULT documented in this encounter Visit Diagnoses Not on filedocumented in this encounter
--- OUTSIDE RECORDS SUMMARY | 2024-06-27 10:16 | XMS_ITS | Encounter Summary ---
Author Organization [facility] Address [address] [place] [address] Care Team Providers Care Hydraulic Design Engineer Name Role Phone Michel Dinero BARGE CAPTAIN-LANDSCAPE ARTIST Primary Care Pro vider Encounter Details Date Type Department Care Team (Latest Contact Info) Description 08/07/2014 11:22 AM AUDITING CODER - 08/07/2014 11:59 PM AUDITING CODER Hospital Encounter [facility] Pediatrics - Radiology [address] [place] [address] Jag Tijerina MD [address] [facility] [address] [place] [address] Discharge Disposition: Home or Self [...] Name Priority Date/Time Associated Diagnosis Comments XR FEMUR LEFT 2VW Routine 08/07/2014 11: 54 AM AUDITING CODER Osteochondroma of femur, left documented in this encounter Results * XR FEMUR 2 VW LEFT (08/07/2014 11:54 AM AUDITING CODER) Anatomical Region Laterality Modality Lower Extremity Radiographic Leeanne ging 08/07/2014 12:0 8 PM AUDITING CODER Impressions 08/07/2014 12:09 PM AUDITING CODER Unchanged appearance of the distal femoral osteochondroma. Narrative 08/07/2014 12:09 PM AUDITING CODER Exam: Left femur, 2 views History: 14-year-old female with osteochondroma Comparison: 12/22/2013 Findings: The exostosis arising from the medial aspect of the distal femoral metaphysis unchanged in size and appearance. Prominence of the overlying soft tissues is unchanged. There is no evidence of fracture. No focal soft tissue mass is seen. The osseous structures are intact and well aligned. No focal demineralization is seen. Procedure Note Kristine Berger MD - 08/07/2014 Exam: Left femur, 2 views History: 14-year-old female with osteochondroma Comparison: 12/22/2013 Findings: The exostosis arising from the medial aspect of the distal femoral metaphysis unchanged in size and appearance. Prominence of the overlying soft tissues is unchanged. There is no evidence of fracture. No focal soft tissue mass is seen. The osseous structures are intact and well aligned. No focal demineralization is seen. IMPRESSION Unchanged appearance of the distal femoral osteochondroma. Selene Orr MD DIAGNOSTIC IMAGING O SUSIEERAGRICELDA documented in this encounter Visit Diagnoses Diagnosis Osteochondroma of femur, left documented in this encounter Care Teams Hydraulic Design Engineer Relationship Specialty Start Date End Date Michel Dinero APRN-TONY [address] [place] [phone] PCP - General Nurse Practitioner 12/11/13 documented as of this encounter
--- OUTSIDE RECORDS SUMMARY | 2024-06-27 10:16 | XMS_ITS | Encounter Summary ---
Author Organization [facility] Address [address] [place] [address] Care Team Providers Care Inverter And Clipper Name Role Phone Michel Dinero DIRECTOR ORGANIZATIONAL-YOUTH MINISTER Primary Care Pro vider Reason for Visit * Reason Comments Follow-up bilateral knee and a nkle pain. Encounter Details Date Type Department Care Team (Latest Contact Info) Description 02/06/2014 9:01 AM CDT - 02/06/2014 11:59 PM CDT Hospital Encounter [facility] Pediatrics - Orthopedics [address] [place] [phone] Jag Tijerina MD [address] [address] [place] [address] Discharge Disposition: Home or Self Care Social History Tobacco Use Types Packs/Day Years Used Date Smoking Tobacco: Never Assessed Sex and Gender Information Value Date Recorded Sex Assigned at Not on file Gender Identity Not on file Sexual Orientation Not on file documented as of this encounter Last Filed Vital Signs Vital Sign Reading Time Taken Comments Blood Pressure - - Pulse - - Temperature - - Respiratory Rate - - Oxygen Saturation - - Inhaled Oxygen Concentration - - Weight 40.9 kg (90 lb 1.6 oz) 02/06/2014 9:02 AM CDT Height 153.5 cm (5' 0.43 ) 02/06/2014 9:02 AM CD T Body Mass Index 17.35 02/06/2014 9:02 AM CDT Body Mass Index Percentile 39.55% 02/06/2014 9:0 2 AM CDT Growth Chart: CDC (Girls, 2- 20 Years) documented in this encounter Discharge Instructions * Patient Instructions* Pal Hector MD - 02/06/2014 9:49 AM CDT ORTHOPAEDIC CLINIC DISCHARGE INSTRUCTIONS SHEET DIAGNOSIS: 1. Knee pain, bilateral 2. Pain in joint, ankle and foot, unspecified laterality Follow Up: Please make a return appointment for 6 month(s). If you cannot keep an appointment, please call and notify ?? With Physician's Criminal Justice Teacher - No ?? X-Rays next visit- yes Activity Restrictions/Excuses: none ?? Excused from School on 02/06/2014 Medications prescribed: none Physicians orders: none. ?? Physical therapy - No To make an appointment, please call . To schedule the surgery discussed with the doctor during your child's office visit, call Smita at [phone], ext. [phone]. If you have a question for the orthopaedic nurse, call [phone], ext. [phone]. If you have a question for Dr. Tijerina, you may leave a voicemail for him at or you can contact him on [employer] at [email or web address]. After visit summary completed by Pal Hector MD.' documented in this encounter Progress Notes * Jag Tijerina MD - 02/06/2014 9:24 AM CDT PEDIATRIC ORTHOPAEDIC CLINIC NOTE NAME: Tameka Sorto DATE OF SERVICE: 02/06/2014 DATE: 2000 PCP: Michel Dinero Chief Complaint Patient presents with ??? Follow-up bilateral knee and ankle pain. SUBJECTIVE: Tameka presents for a Follow-Up Evaluation. Tameka Sorto is a 13 y.o. female who presents with complaint of bilateral knee and right ankle pain. She was seen last 1.5 months ago, and was sent to physical therapy. She has been only somewhat consistent with her home exercises, however doesnote some improvement in her pain. She localizes her right ankle pain, which is her worst complainttoday, to the area just proximal to the insertion. At last visit, she was also found to have a distal left osteochondroma, and states it is not bothering her today. Mechanical symptoms: none Neurological complaints: no Vascular complaints: none Associated symptoms: none Previous workup: XRs REVIEW OF SYSTEMS: History obtained from mother. A 12 point ROS was obtained and all others were negative except what is listed in the HPI. PHYSICAL EXAMINATION:Wt 90 lb 1.6 oz (20247 g) BMI 17.35 kg/m2 General appearance: She has good head control. Orientation: alert, cooperative, no distress. Mood&affect: both mood and affect are normal Extremities: Bilateral upper extremity Skin - No rashes or abnormal dyspigmentation Inspection - No swelling, erythema, deformity, atrophy or hypertrophy noted Tenderness - absent Joint effusion - absent Range of motion - full range of motion Knee exam RIGHT LEFT SKIN: No rashes or abnormal dyspigmentation No rashes or abnormal dyspigmentation INSPECTION: Swelling - none none Warmth - no warmth no warmth There is a L>R LLD of 0.5 cm TENDERNESS: Knee - None None ankle Present, proximal to the insertion of the achilles No tenderness EFFUSION: Knee - none none ROM: Hip - normal normal Knee - normal normal Ankle - normal normal Silfverskiold reveals 15 (knees flexed) and 0 (knees extended) Silfverskiold reveals 15 (knees flexed) and 0 (knees extended) STRENGTH: normal 5/5 strength in all tested muscle groups normal 5/5 strength in all tested muscle groups SENSORY: normal normal VASCULAR EXAM: pulses present pulses present STABILITY: Knee - stable to testing stable to testing SPECIAL TEST: Knee - Shannon's - negative Posterior sag - no Patellar Apprehension - Negative J-Sign - Negative Shannon's - negative Posterior sag - no Patellar Apprehension - Negative J-Sign - Negative ALIGNMENT: Knee - normal normal Neuro: Strength - normal throughout upper and lower extremities Sensation - normal all four extremities Tone - normal throughout axial and appendicular musculature Reflexes - normal Gait: normal gait and stance, nonspastic RADIOLOGY: not taken ASSESSMENT: 1. Knee pain, bilateral 2. Pain in joint, ankle and foot, unspecified laterality PLAN: 1. Questions solicited and answered. 2. Patient voiced understanding to info/instructions given. 3. Continue with existing conservative treatment program -- continue home PT exercises 4. Medications Prescribed: none 5. Brace: none 6. Activity Restrictions: none 7. Weightbearing status: No Restrictions 8. Follow up: in 6 month(s) ?? X-rays - Yes Left Femur to evaluate status of the osteochondroma ?? With the Physician's Criminal Justice Teacher - No ATTENDING ATTESTATION STATEMENT I have personally seen and evaluated Tameka with the resident. I confirm the alexandre elements of the history to include: Chief Complaint Patient presents with ??? Follow-up bilateral knee and ankle pain. I have discussed the results of the physical exam and all studies with Tameka and her family. I confirm the alexandre elements of the physical exam to include mild anterior knee pain. I have reviewed all radiographic studies with the resident and confirm the assessment. I developed the above assessment and discussed it with Tameka's family. I confirm the alexandre elements of the assessment to include: 1. Knee pain, bilateral 2. Pain in joint, ankle and foot, unspecified laterality 3. Hip pain, right I confirm the alexandre elements of the plan of care to include: 1. Treatment: Exercise options discussed and encouraged 2. Follow-up: Please make a return appointment for 6 month(s) documented in this encounter Plan of Treatment Scheduled Orders Name Type Priority Associated Diagnoses Orde r Schedule XR AP PELVIS 1 VIEW OR 2VWS Imaging Routine Hip pain, right For radiant use only for 1 Occurrences starting 02/06/2014 documented as of this encounter Visit Diagnoses Diagnosis Knee pain, bilateral- Primary Pain in joint, lower leg Pain in joint, ankle and foot, unspecified laterality Hip pain, right Pain in joint, pelvic region and thigh documented in this encounter Care Teams Inverter And Clipper Relationship Specialty Start Date End Date Michel Dinero APRN-TONY [address] [place] [phone] PCP - General Nurse Practitioner 12/11/13 documented as of this encounter
--- OUTSIDE RECORDS SUMMARY | 2024-06-27 10:16 | XMS_ITS | Encounter Summary ---
Author Organization [facility] Address [address] [place] [address] Care Team Providers Care Precinct Police Captain Name Role Phone Michel Dinero PRESS SET UP PERSON-INSPECTOR OUTSIDE STEAM DISTRIBUTION Primary Care Pro vider Reason for Visit * Auth/Cert Specialty Diagnoses / Procedures Referred By Yinkaac t Referred To Contact Diagnoses Benign neoplasm of femur, left Benign neoplasm of femur, left Procedures EXCISION CYST BONE FEMUR Referral ID Status Reason Start Date Expiration Date Visits Re quested Visits Authorized [id number] 1 1 Encounter Details Date Type Department Care Team (Latest Contact Info) Description 12/19/2016 7:19 AM CDT - 12/19/2016 2:05 PM CDT Hospital Encounter [facility] - Intra [address] [place] [address] Jag Tijerina MD [address] [place] [address] [place] [phone] Surgery General Discharge Disposition: Home or Self Care Social [...] PM CD T Respiratory Rate 14 12/19/2016 1:4 5 PM CDT Oxygen Saturation 100% 12/19/2016 1:45 PM CDT Inhaled Oxygen Concentration - - Weight 46.2 kg (101 lb 13.6 oz) 12/19/2016 7:30 AM CDT Height 154.5 cm (5' 0.83 ) 12/19/2016 7:30 AM CD T Body Mass Index 19.35 12/19/2016 7:30 AM CDT Body Mass Index Percentile 44.05% 12/19/2016 7:3 0 AM CDT Growth Chart: [facility] (Girls, 2- 20 Years) documented in this encounter Functional Status Functional Status Response [...] 12/19/2016 documented as of this encounter Discharge Summaries * Anna Roger MD - 12/19/2016 1:04 PM CDT Physician Discharge Summary Patient Name: Tameka Sorto Date of : 2000 Admit date: 12/19/2016 Discharge date: 12/19/2016 Admitting Physician: Jag Tijerina MD Attending Physician: Jag Tijerina MD Admission Diagnosis: Left medial distal femur osteochondroma Discharge Diagnoses Left medial distal femur osteochondroma Past Medical History Past Medical History: Diagnosis Date ??? FTND (full term normal delivery) ??? Knee pain 12/22/2013 ??? 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 pre diabetes managed by diet control, no meds Diagnostic Studies intraop fluroscopy Procedures 12/19/2016 left distal femur osteochondroma excision Consults none Hospital Course Tameka Sorto is a 16 y.o. female who is status post left medial distal femur osteochondroma which has become increasingly painful. She presented today to undergo osteochondroma excision. She tolerated the procedure well. She will be WBAT LLE. She will follow up in clinic in 2 weeks for wound check. Condition at discharge: good Disposition: home Discharge Medications: Discharge Medication List START taking these medications Instructions Authorizing Provider HYDROcodone-acetaminophen 5-325 MG tablet Commonly known as: NORCO Take 1 Tab by mouth every 4 hours as needed for Pain Anna Roger CONTINUE taking these medications Instructions Authorizing Provider cetirizine 10 MG tablet Commonly known as: ZyrTEC Take 10 mg by mouth once daily Patient Instructions Discharge Procedure Orders Why you were hospitalized Order Specific Question Answer Comments Your discharge diagnosis is: Osteochondroma [[id number]] No special diet needed Resume normal home diet as tolerated. Activity as tolerated Rest today, and increase activity level tomorrow as tolerated. Post-anesthesia instructions Tameka has just had a procedure that required sedation, and should not be left unattended today, since there is a higher risk of falling after having anesthesia. Even though Tameka may be awake and alert when she leaves the hospital, the effects of the sedation will most likely be present for at least 4 - 6 hours. A quiet day is recommended. Tameka should not drive a vehicle, operate farm equipment or heavy machinery, or use the stove to cook for the next 24 hours. Shower with incision covered -- Tameka may shower. -- Keep her incision covered with a dry dressing -- Be sure to replace the dressing after showering if needed Follow up with provider Order Specific Question Answer Comments Follow Up Instructions: follow up in 2 weeks Weight bearing as tolerated Tameka should slowly increase the amount of weight put on the left lower extremity as tolerated. documented in this encounter Medications at Time of Discharge Medication Sig Dispensed Refills Start Date End Date cetirizine (ZYRTEC) 10 MG tablet Take 10 mg by mouth once daily HYDROcodone-acetaminophen (NORCO) 5-325 MG tablet Take 1 Tab by mouth every 4 hours as needed for Pain 20 Tab 12/19/2016 07/16/2017 documented as of this encounter Progress Notes * Anna Roger MD - 12/19/2016 1:07 PM CDT Pediatric Orthopaedic Surgery Post-operative check Surgery Date: 12/19/2016 Diagnosis: 1. Osteochondroma of femur, left 2. Benign neoplasm of femur, left Procedure(s) (LRB): EXCISION LEFT DISTAL FEMUR OSTECHONDROMA (Left) Subjective Complaints: none Pain: mild Nausea/Vomiting: absent Postoperative vitals: Patient Vitals for the past 6 hrs: Temp Pulse Resp BP 12/19/16 0842 - 88 16 127/82 12/19/16 0730 96.6 ??F - - - Physical Exam General appearance: Well-nourished., No apparent distress. and Cooperative. Left lower extremity: Dressing in place along medial distal femur. Wiggles toes. Intact EHL/FHL/GS/AT, Sensation intact to light touch distally, DP, Brisk capillary refill (<2 sec). Assessment/Plan Status post: medial left distal femur osteochondroma excision 1. WBAT LLE 2. Ok to shower 3. Pain Control - norco 4. Drains? None 5. Discharge from PACU 6. Follow up in 2 weeks for wound check - does not need repeat radiographs 7. Follow up on pathology Anna Roger MD 12/19/2016 1:07 PM documented in this encounter H&P Notes * Johny Wise MD - 12/19/2016 8:53 AM CDT PEDIATRIC ORTHOPAEDIC HISTORY AND PHYSICAL NAME: Tameka Sorto DATE OF SERVICE: 12/19/2016 DATE: 2000 PCP: Michel Dinero APRN-TONY No chief complaint on file. SUBJECTIVE: Tameka Sorto is a 16 y.o. female who presents for excision of left distal femur osteochondroma. Patient has previously been followed in our orthopaedics clinic for left distal femur osteochondroma. The pain has recently become profressively worse. The pain is dull and throbbing. It is worse with activity and better with rest. She denies new onset numbness, tingling and weakness. She further denies recent fevers, chills, nausea and vomiting. Pain: no current joint or muscle symptoms, essentially pain-free Neurological complaints: no Vascular complaints: none Associated symptoms: none Previous workup: none PAST MEDICAL HISTORY: has a past medical history of FTND (full term normal delivery); Knee pain (12/22/2013); Osteochondroma of left femur (12/22/2013); and pre diabetes. She also has no past medicalhistory of Acute upper respiratory infection; Apnea; Asthma; Congenital heart disease; Convulsions;GERD (gastroesophageal reflux disease); or Methicillin resistant Staphylococcus aureus infection. PAST SURGICAL HISTORY: has a past surgical history that includes negative surgical history (12/15/2016). MEDICATIONS: has a current medication list which includes the following prescription(s): cetirizine. ALLERGIES: Review of patient's allergies indicates no known allergies. SOCIAL HISTORY: Tameka lives with her parents. Tameka does attend school, high school. Tameka is involved in no extracurricular activities. FAMILY HISTORY: Family history is negative for genetic conditions affecting children. REVIEW OF SYSTEMS: History obtained from the patient. A 12 point ROS was obtained and all others were negative except what is listed in the HPI. PHYSICAL EXAMINATION:BP 127/82 Pulse 88 Temp 96.6 ??F Resp 16 Ht 1.545 m (5' 0.83 ) Wt 46.2 kg (101lb 13.6 oz) SpO2 99% BMI 19.35 kg/m2 General appearance: She has good head control. Orientation: alert, cooperative, no distress. Mood&affect: both mood and affect are normal Lungs: breath sounds normal and symmetric; no rales or wheezes Heart: regular rhythm, without murmurs, gallops or rubs Abdomen: soft without mass, non-tender, with normal bowel sounds Spine: exam not performed Extremities: Bilateral upper [...] deformity, atrophy or hypertrophy noted Tenderness - mild tenderness at the distal medial femur Joint effusion - absent Range of motion - full range of motion Stability - stable to varus / valgus / anterior / posterior stress at the knee Neuro: Strength - normal throughout upper and lower extremities with 5/5 EHL, FHL, TA, GSC, knee flexion /extension Sensation - normal all four extremities with sensation intact to light touch at the foot Tone - normal throughout axial and appendicular musculature Reflexes - normal Gait: normal gait and stance, nonspastic RADIOLOGY: No new imaging LAB: Recent Results (from the past 12 hour(s)) HCG URINE QUALITATIVE - POCT (IP) BEAKER Collection Time: 12/19/16 7:45 AM Result Value Ref Range HCG Qual Urine Negative Negative QC Verified Yes Yes ASSESSMENT: 16 year old female with symptomatic left distal femur osteochondroma PLAN: 1. Treatment options discussed including excision of left distal femur osteochondroma 2. Questions solicited and answered. 3. They voiced understanding to preoperative counseling. 4. mother was agreeable to proceed with this procedure. 5. Consent was obtained 6. The site was marked. 7. Plan to proceed with the above procedure. 8. Planned post operatively disposition is to Home documented in this encounter OR Notes * Operative - Jag Tijerina MD - 12/19/2016 2:05 PM CDT [facility] Operative Report NAME: Tameka Sorto : 2000 DATE OF OPERATION: 12/19/2016 PCP: Michel Dinero APRN-TONY PREOPERATIVE DIAGNOSIS: Left medial distal femoral condyle osteochondroma POSTOPERATIVE DIAGNOSIS: Same PROCEDURE: Excision of medial distal femur osteochondroma, CPT Code 79132 Surgeon(s) and Role: * Jag Tijerina MD - Primary * Anna Roger MD - Resident - Assisting Anesthesia: General Complications: none EBL: 20 cc Urine output: see anesthesia record Drains: none IV Fluids: see anesthesia record. Implants: none Specimens: Sent to pathology - medial distal femur osteochondroma Antibiotics Given: Yes - Ancef Counts: Sponge counts were correct at the end of procedure. Needle counts were correct at the end of procedure. BRIEF HISTORY: Tameka Sorto is a 16 y.o. female who presents with history of right medial distal femur osteochondroma. Due to increasing pain, she presents today to undergo resection of the osteochondroma. The family was made aware of the risks and benefits and the patient was prepared for the procedure. PROCEDURE: Preparation: Tameka Sorto was taken to the operating room and placed on the table in the supine position. A timeout was performed to confirm surgical site and procedure. Preoperative antibiotics were given. After adequate general anesthesia was achieved, the patient was placed in the supine position on the operating room table. A tourniquet was not placed. The left lower extremity was prepped with chloraprepand draped in the usual sterile manner. Main Procedure: An oblique medial incision was marked with marking pen along the medial aspect of the quadriceps beneath the VMO. The skin was incised with a 15 blade. Sharp dissection through the skin. The fascia was identified and incised. The VMO was elevated anteriorly. The lesion was easily identified off thedistal anteromedial aspect of the femur and exposed with electrocautery. A rongeur was used to remove the osteochondroma. A fluoroscopic image was taken to confirm complete removal of the lesion. Closure: The wound was then copiously irrigated. The fascia was approximated with a 0- vicryl. The skin was approximated with 3-0 vicryl suture. The skin was approximated with 4-0 Monocryl suture. Sterile dressing was applied. The patient was awakened from anesthesia, extubated and taken to the recovery room in a stable condition, having suffered no apparent untoward event. ATTENDING ATTESTATION STATEMENT: Jag Merrill MD,was present for the alexandre portions of the procedure. DISPOSITION: PACU then home. 1. Dressing: telfa and Tegaderm - ok to shower over dressing 2. Medications Prescribed: [place] 3. Activity Restrictions: no gym or sports 4. Weightbearing status: WBAT LLE 5. Follow up: 2 weeks for wound check. Anna Roger MD 12/21/2016 3:26 PM * Brief Op Note - Anna Roger MD - 12/19/2016 1:00 PM CDT Pediatric Orthopaedic Surgery Brief Operative Report NAME: Tameka Sorto : 2000 DATE OF OPERATION: 12/19/2016 Surgeon/Assistants: Surgeon(s) and Role: * Jag Tijerina MD - Primary * Anna Roger MD - Resident - Assisting OR staff: Hand Baseball Sewer: Jemma House RN Weave Room Supervisor: Alena Aviles RT(R) Scrub Person: Sonia Murphy Anesthesia: General Pre-operative Diagnosis: Left distal femur osteochondroma Post-operative Diagnosis: Left distal femur osteochondroma Procedure: Procedure(s) (LRB): EXCISION LEFT DISTAL FEMUR OSTECHONDROMA (Left) Findings: See operative report. EBL: 10 mL Complications: none Specimen: ID Type Source Tests Collected by Time Destination A : left distal femur osteochondroma Path Osteochondroma GROSS + MICRO EXAM (STL) Jag Tijerina MD 12/19/2016 1236 Implant: none Drains: None Plan: Discharge home WBAT LLE Ok to shower over incision Follow up in 2 weeks for wound check See full operative note for details. documented in this encounter Plan of Treatment Not on file documented as of this encounter Procedures Procedure Name Priority Date/Time Associated Diagnosis Comments XR KNEE LEFT 2VW OR LESS Routine 12/19/2016 12:55 PM CDT Osteochondroma of femur, left PATHOLOGY TISSUE EXAM (STL) STAT 12/19/2016 12:36 PM CDT Benign neoplasm of femur, left EXCISION CYST BONE FEMUR 12/19/2016 11:37 AM CDT Benign neoplasm of femur, left Special Needs C-ARM HCG URINE QUALITATIVE - POCT (IP) BEAKER Routine 12/19/2016 7:45 AM CDT documented in this encounter Results * XR KNEE 1 OR 2 VW LEFT (12/19/2016 12:55 PM CDT) Anatomical Region Laterality Modality Lower Extremity Radio Fluoroscop y 12/19/2016 1:00 PM CDT Impressions 12/19/2016 1:01 PM CDT A single intraoperative fluoroscopic C-arm spot radiograph of the knee in the AP projection is submitted for interpretation and limited to the sonla-nw-ymel. The previously seen osteochondroma along the medial aspect of the distal femoral metaphysis is no longer seen. Gas is present in the adjacent soft tissues. Narrative 12/19/2016 1:01 PM CDT Exam: Left knee, single view HISTORY: Osteochondroma undergoing resection COMPARISON: 12/15/2016 Procedure Note Kristine Berger MD - 12/19/2016 Exam: Left knee, single view HISTORY: Osteochondroma undergoing resection COMPARISON: 12/15/2016 IMPRESSION A single intraoperative fluoroscopic C-arm spot radiograph of the knee in the AP projection is submitted for interpretation and limited to the rmgpo-vl-moyw. The previously seen osteochondroma along the medial aspect of the distal femoral metaphysis is no longer seen. Gas is present in the adjacent soft tissues. Jag Tijerina MD DIAGNOSTIC IMAGING O RDERABLES * GROSS + MICRO EXAM (STL) (12/19/2016 12:36 PM CDT) Case Report Surgical Pathology Report ? Case: [id number] ? Authorizing Provider: ??Jag Tijerina MD ? Collected: ? 12/19/2016 12:36 PM ? Ordering Location: ? [facility] ? Received: ?12/19/2016 01:35 PM ? Pathologist: ? Nancy Camacho MD ? Specimen: ?Osteochondroma, left distal femur osteochondroma ? 12/23/2016 6:07 PM [facility] Final Diagnosis BONE, DISTAL LEFT FEMUR, EXCISION: - CONSISTENT WITH OSTEOCHONDROMA. 12/23/2016 6:07 PM [facility] Clinical History The patient is a 16-year-old girl who underwent excision of a left distal femur osteochondroma diagnosed radiologically in 2013. XR Left Knee 12/22/2013: Osteochondroma arising from the anteromedial aspect of the distal femur 12/23/2016 6:07 PM [facility] Gross Description Submitted fresh in one container for gross and microscopic examination labeled with the patient's name, Tameka Sorto, and left distal femur osteochondroma, is a 2 x 1 x 0.6 cm roughly rectangular fragment of yellow-white bone with a small 0.6 x 0.6 x 0.3 cm fragment of attached pink-white cartilage. Also submitted in the same container are three irregularly-shaped fragments of pink-herrera bone with an aggregate measurement of 1.5 x 1 x 0.4 cm. The specimen is submitted for decalcification prior to sectioning. After decalcification, the specimen is serially sectioned and entirely submitted in cassettes A1 through A3. (CT/jl) 12/23/2016 6:07 PM [facility] Microscopic Description A) 3 H&E Review of material submitted reveals fibroconnective tissue, adipose tissue, skeletal muscle, mature trabecular bone with with fibrotic or fatty marrow and islands of mature hyaline cartilage. The architecture of an osteochondroma is not seen because of distortion of the specimen but the findings are consistent with an osteochondroma. (TROY/VELIA/butch) 12/23/2016 6:07 PM [facility] Disclaimer The performance characteristics of all immunohistochemical and indirect immunofluorescence stains (if any) cited in this report were determined by the Histopathology Laboratory of [facility]. Some of these tests were developed by our own laboratory and have not been cleared or approved by the US Food and Drug Administration (FDA). The FDA does not require this test to go through premarket FDA review. These tests are used for clinical purposes. They should not be regarded as investigational or for research. This laboratory is certified under the Clinical Laboratory Improvement Amendments (CLIA) as qualified to perform high complexity clinical laboratory testing. This case has been personally reviewed and interpreted by the attending (teaching) pathologist. 12/23/2016 6:07 PM CDT [facility] Embedded Images 12/23/2016 6:07 PM CDT [facility] Pathology/Cytol ogy OSTEOCHONDROMA / Unknown 12/19/2016 12:36 PM CDT 12/19/2016 1:35 PM CDT Narrative Authorizing Provider Result Isabela Tijerina MD LAB - PATHOLOGY/CYTO LOGY ORDERABLES Performing Organization Address City/[facility]/ZIP Co de Phone Number [facility] [address] [place] [address] * HCG URINE QUALITATIVE - POCT (IP) BEAKER (12/19/2016 7:45 AM CDT) HCG Qual Urine Negative Negative [facility] QC Verified Yes Yes [facility] PO CT TESTING Urine URINE / Unknown 12/19/2016 7 :45 AM CDT Narrative Authorizing Provider Result Isabela Tijerina MD LAB - POINT OF CARE ORDERABLES Performing Organization Address [facility] de Phone Number [facility] [address] [phone] documented in this encounter Visit Diagnoses Diagnosis Osteochondroma of femur, left- Primary Benign neoplasm of femur, left documented in this encounter Administered Medications Inactive Administered Medications - up to 3 most recent administrations Medication Order MAR Action Action Date Dose Rate Site isolyte-S pH 7.4 infusion 82 mL/hr, Intravenous, POST-OP CONTINUOUS, Starting on Sun12/19/16 at 1315, Until Sun12/19/16 at 1508, PACU Current Rate 12/19/2016 1:23 PM CDT 82 mL/hr 82 mL/hr morphine injection 1 mg 1 mg (0.0216 mg/kg), Intravenous, POST-OP MULTIPLE, Starting on Sun12/19/16 at 1303, Until Tu12/19/16 at 1508, May repeat first dose every 5 minutes. Max dose 4.5 mg. DO NOT EXCEED MORPHINE 0.2 mg/kg/hr IV. High Risk, High Alert Medication: Must document double check on IV MAR Flowsheet, PACU $ Given 12/19/2016 1:30 PM CDT 1 mg documented in this encounter Active and Recently Administered Medications Times are shown in CDT. Scheduled Medication Order 12/17/2016 12/18/2016 12/19/2016 diphenhydrAMINE (BENADRYL) injection 12.5 mg 12.5 mg (0.271 mg/kg), Intravenous, POST-OP MULTIPLE, Starting on Sun12/19/16 at 1303, Until Sun12/19/16 at 1508, Max dose: 50 mg, PACU morphine injection 1 mg 1 mg (0.0216 mg/kg), Intravenous, POST-OP MULTIPLE, Starting on Sun12/19/16 at 1303, Until Sun12/19/16 at 1508, May repeat first dose every 5 minutes. Max dose 4.5 mg. DO NOT EXCEED MORPHINE 0.2 mg/kg/hr IV. High Risk, High Alert Medication: Must document double check on IV MAR Flowsheet, PACU 1330 ($ Given - Prov ider: Smita Montero RN) Continuous Medication Order 12/17/2016 12/18/2016 12/19/2016 isolyte-S pH 7.4 infusion 82 mL/hr, Intravenous, POST-OP CONTINUOUS, Starting on Sun12/19/16 at 1315, Until Sun12/19/16 at 1508, PACU 1323 (Current Rate - Provider: Smita Montero RN) PRN Medication Order 12/17/2016 12/18/2016 12/19/2016 0.9% nacl irrigation solution (CANCELED) PRN, Starting on Sun12/19/16 at 1225, Until Sun12/19/16 at 1303, Intra-op 1225 ($ Given - Prov ider: Anna Roger MD - Comment: available on sterile field and used prn) bupivacaine 0.5% - EPINEPHrine 1:200,000 (PF) injection (CANCELED) PRN, Starting on Sun12/19/16 at 1241, Until Sun12/19/16 at 1303, Intra-op 1241 ($ Given - Prov ider: Anna Roger MD) documented in this encounter Care Teams Precinct Police Captain Relationship Specialty Start Date End Date Michel Dinero, PRESS SET UP PERSON-INSPECTOR OUTSIDE STEAM DISTRIBUTION [address] [place] [phone] PCP - General Nurse Practitioner 12/11/13 documented as of this encounter
--- OUTSIDE RECORDS SUMMARY | 2024-06-27 10:16 | XMS_ITS | Encounter Summary ---
Author Organization [facility] Address [address] [place] [address] Care Team Providers Care Construction Superintendent Name Role Phone Unavailable Primary Care Provider Unavailabl e Encounter Details Date Type Department Care Team (Late st Contact Info) Description 03/25/2021 2:00 PM CDT Rapid Evaluation [place] [facility] Community Testing [address] [address] Social History Tobacco Use Types Packs/Day Years [...]
--- OUTSIDE RECORDS SUMMARY | 2024-06-27 10:16 | XMS_ITS | Encounter Summary ---
Author Organization [facility] Address [address] [place] [address] Care Team Providers Care Percher Name Role Phone Unavailable Primary Care Provider Unavailabl e Encounter Details Date Type Department Care Team (Late st Contact Info) Description 03/16/2021 Lab Requisition [facility] Community Testing [facility] [address] [place] [address] Papo Heck MD [address] [place] [address] [address] [place], [place] [id number] Social History Tobacco Use Types Packs/Day Years [...] Diagnosis Comments SARS-COV-2 PCR [facility] ONLY Routine 03/16/2021 2:22 PM CDT documented in this encounter Visit Diagnoses Not on filedocumented in this encounter
--- OUTSIDE RECORDS SUMMARY | 2024-06-27 10:16 | XMS_ITS | Encounter Summary ---
Author Organization [facility] Address [address] [place] [address] Care Team Providers Care Well Service Pump Equipment Operator Name Role Phone Michel Dinero REHABILITATION SERVICES MANAGER-ENGRAVER MACHINE Primary Care Pro vider Encounter Details Date Type Department Care Team (Latest Contact Info) Description 12/22/2013 11:20 AM CDT - 12/22/2013 11:59 PM CDT Hospital Encounter [facility] Pediatrics - Radiology [address] [place] [address] Jag Tijerina MD [address] [facility] [address] [place] [address] Discharge Disposition: Home or Self [...] Name Priority Date/Time Associated Diagnosis Comments XR ANKLE RIGHT 2VW Routine 12/22/2013 11 :26 AM CDT Pain in joint, ankle and foot, unspecified laterality XR ANKLE LEFT 2VW Routine 12/22/2013 11: 26 AM CDT Pain in joint, ankle and foot, unspecified laterality documented in this encounter Results * XR ANKLE 2 [...] is seen. Danni CONTRERAS [facility] documented in this encounter Visit Diagnoses Diagnosis Osteochondroma of lower leg, left- Primary Pain in joint, ankle and foot, unspecified laterality documented in this encounter Care Teams Well Service Pump Equipment Operator Relationship Specialty Start Date End Date Michel Dinero APRN-TONY [address] [place] [phone] PCP - General Nurse Practitioner 12/11/13 documented as of this encounter
--- OUTSIDE RECORDS SUMMARY | 2024-06-27 10:16 | XMS_ITS | Encounter Summary ---
Author Organization [facility] Address [address] [place] [address] Care Team Providers Care Mine Deputy Name Role Phone Michel Dinero MEDICAL GENETICIST-CONSTRUCTION JOB TITLES Primary Care Pro vider Reason for Visit * Auth/Cert Specialty Diagnoses / Procedures Referred By Mitchell t Referred To Contact Diagnoses Benign neoplasm of femur, left Benign neoplasm of femur, left Procedures EXCISION CYST BONE FEMUR Referral ID Status Reason Start Date Expiration Date Visits Re quested Visits Authorized [id number] 1 1 Encounter Details Date Type Department Care Team (Late st Contact Info) Description 12/19/2016 9:00 AM CDT - 12/19/2016 10:30 AM CDT Surgery [address] [address] Jag Tijerina MD [address] [place] [address] [address] [place] [address] EXCISION LEFT DISTAL FEMUR OSTECHONDROMA Surgery Details Date/Time Status Location OR Service Patient Class Case Class Case Type Trauma Case? 12/19/2016 9:00 AM Posted [facility]IN OR 09 Orthopedics Surgery Day Care Elective > 5 days Panel 1 Procedure LRB Anes Op Region Wound Class Comments EXCISION LEFT DISTAL FEMUR OSTECHONDROMA Left General Leg Clean Surgeon Surgeon Role Service Panel Jag Tijerina MD Primary Orthopedics 1 Anna Roger MD Resident - Assisting Orthopedics 1 Special Needs C-ARM documented in this encounter Social History Tobacco Use Types Packs/Day Years [...] 12/19/2016 7:3 0 AM CDT Growth Chart: [facility] (Girls, 2- 20 Years) documented in this [...] Answer Comments Your discharge diagnosis is: Osteochondroma [[id number]] No special diet needed Resume normal home [...] SERVICE: 12/19/2016 DATE: 2000 PCP: Michel Dinero APRN-CONSTRUCTION JOB TITLES No chief complaint on file. SUBJECTIVE: Tameka [...] Tijerina MD - 12/19/2016 2:05 PM CDT [facility] Operative Report NAME: Tameka Sorto : 2000 DATE OF OPERATION: 12/19/2016 PCP: Michel Dinero APRN-CONSTRUCTION JOB TITLES PREOPERATIVE DIAGNOSIS: Left medial distal femoral condyle osteochondroma POSTOPERATIVE DIAGNOSIS: Same PROCEDURE: Excision of medial distal femur osteochondroma, CPT Code 64622 Surgeon(s) and Role: * Jag Tijerina MD [...] to shower over dressing 2. Medications Prescribed: Cuervo 3. Activity Restrictions: no gym or sports [...] MD - Resident - Assisting OR staff: Tubing Machine Tender: Jemma House RN Lead Nitrate Processor: Alena Aviles RT(R) Scrub Person: Sonia Murphy [...] submitted for interpretation and limited to the [id number]. The previously seen osteochondroma along the medial [...] submitted for interpretation and limited to the [id number]. The previously seen osteochondroma along the medial aspect of the distal femoral metaphysis is no longer seen. Gas is present in the adjacent soft tissues. Jag Tijerina MD DIAGNOSTIC IMAGING O RDERABLES * GROSS + MICRO EXAM (STL) (12/19/2016 12:36 PM CDT) Case Report Surgical Pathology Report ? Case: [id number] ? Authorizing Provider: ??Jag Tijerina MD ? Collected: ? 12/19/2016 12:36 PM ? Ordering Location: ? [facility] ? Received: ?12/19/2016 01:35 PM ? Pathologist: ? Nancy Camacho MD ? Specimen: ?Osteochondroma, left distal femur osteochondroma ? 12/23/2016 6:07 PM [facility] Final Diagnosis BONE, DISTAL LEFT FEMUR, EXCISION: - CONSISTENT WITH OSTEOCHONDROMA. 12/23/2016 6:07 PM [facility] Clinical History The patient is a 16-year-old girl who underwent excision of a left distal femur osteochondroma diagnosed radiologically in 2013. XR Left Knee 12/22/2013: Osteochondroma arising from the anteromedial aspect of the distal femur 12/23/2016 6:07 PM [facility] Gross Description Submitted fresh in one [...] entirely submitted in cassettes A1 through A3. (CT/jlh) 12/23/2016 6:07 PM [facility] Microscopic Description A) 3 H&E Review of material submitted reveals fibroconnective tissue, adipose tissue, skeletal muscle, mature trabecular bone with with fibrotic or fatty marrow and islands of mature hyaline cartilage. The architecture of an osteochondroma is not seen because of distortion of the specimen but the findings are consistent with an osteochondroma. (CV/KE/sm) 12/23/2016 6:07 PM [facility] Disclaimer The performance characteristics of all immunohistochemical and indirect immunofluorescence stains (if any) cited in this report were determined by the Histopathology Laboratory of [facility]. Some of these tests were developed by [...] attending (teaching) pathologist. 12/23/2016 6:07 PM CDT [facility] Embedded Images 12/23/2016 6:07 PM CDT [facility] Pathology/Cytol ogy OSTEOCHONDROMA / Unknown 12/19/2016 12:36 PM CDT 12/19/2016 1:35 PM CDT Narrative Authorizing Provider Result Isabela Tijerina MD LAB - PATHOLOGY/CYTO LOGY ORDERABLES Performing Organization Address City/[facility]/ZIP Co de Phone Number [facility] [address] [place] [address] * HCG URINE QUALITATIVE - POCT (IP) BEAKER (12/19/2016 7:45 AM CDT) HCG Qual Urine Negative Negative [facility] POCT TESTING QC Verified Yes Yes [facility] PO CT TESTING Urine URINE / Unknown 12/19/2016 7 :45 AM CDT Narrative Authorizing Provider Result Isabela Tijerina MD LAB - POINT OF CARE ORDERABLES Performing Organization Address [facility] Co de Phone Number [facility] POCT TESTING [address] [place], [place] [id number] [place] [address] documented in this encounter Visit Diagnoses Diagnosis Osteochondroma of femur, left- Primary Benign neoplasm of femur, left Benign neoplasm of femur, left documented in this encounter Administered Medications Inactive Administered Medications - up to 3 most recent administrations Medication Order MAR Action Action Date Dose Rate Site 0.9% nacl irrigation solution PRN, Starting on Sun12/19/16 at 1225, Until Sun12/19/16 at 1303, Intra-op $ Given 12/19/2016 12:25 PM CDT 500 mL Operative Site bupivacaine 0.5% - EPINEPHrine 1:200,000 (PF) injection PRN, Starting on Sun12/19/16 at 1241, Until Sun12/19/16 at 1303, Intra-op $ Given 12/19/2016 12:41 PM CDT 10 mL Operative Site isolyte-S pH 7.4 infusion 82 mL/hr, [...] MD) documented in this encounter Care Teams Mine Deputy Relationship Specialty Start Date End Date Michel Dinero, LEXI-CONSTRUCTION JOB TITLES [address] [place] [phone] PCP - General Nurse Practitioner 12/11/13 documented as of this encounter
--- OUTSIDE RECORDS SUMMARY | 2024-06-27 10:16 | XMS_ITS | Patient Health Summary ---
Author Organization [facility] Address [address] [place] [address] Care Team Providers Care Belly Packer Name Role Phone Michel Dinero DIRECTOR OF COMMUNITY LIFE-PILOT PLANT RESEARCH TECHNICIAN Primary Care Pro vider Note from [facility],non-owned Affiliates and Associated Physician Practices is amultiple site organization consisting of ambulatory clinics and hospital sitesin [place], [place], [place] and [place]. This disclosure is being madepursuant to the Care Everywhere program and may not contain all information available regarding this patient. Last updated 18.[facility] Allergies No known active allergies Medications * Be aware that medications may not be up to date on this document. Alwaysverify current medications with the patient. * cetirizine (ZYRTEC) 10 MG tablet Take 10 mg by mouth once daily Active Problems Problem Noted Date Diagnosed Date s/p Excision of medial dista l femur osteochondroma on 12/19/16 01/21/2017 Knee pain, bilateral 12/22/2013 Pain in joint, ankle and foot 12/22/2013 Osteochondroma of femur 12/22/2013 Social History Tobacco Use Types Packs/Day Years [...] (111 lb 12.4 oz) 018 10:58 AM GARDEN MACHINERY MECHANIC Height 154.5 cm (5' 0.83 ) 12/19/2016 7:30 AM CD T Body Mass Index - - Procedures * XR KNEE LEFT 2VW OR LESS(Performed 12/19/2016) Performed for Osteochondroma of femur, left * PATHOLOGY TISSUE EXAM (STL)(Performed 12/19/2016) Performed for Benign neoplasm of femur, left * EXCISION CYST BONE FEMUR(Performed 12/19/2016) Performed for Benign neoplasm of femur, left * HCG URINE QUALITATIVE - POCT (IP) BEAKER(Performed 12/19/2016) * XR KNEE LEFT 3VW(Performed 12/15/2016) Performed for Osteochondroma of femur, left * XR FEMUR LEFT 2VW(Performed 08/07/2014) Performed for Osteochondroma of femur, left * XR ANKLE RIGHT 2VW(Performed 12/22/2013) Performed for Pain in joint, ankle and foot, unspecified laterality * XR ANKLE LEFT 2VW(Performed 12/22/2013) Performed for Pain in joint, ankle and foot, unspecified laterality * XR KNEE RIGHT 3VW(Performed 12/22/2013) Performed for Knee pain, bilateral * XR KNEE LEFT 3VW(Performed 12/22/2013) Performed for Knee pain, bilateral Results * XR KNEE 1 OR 2 VW LEFT (12/19/2016 12:55 PM CDT) Anatomical Region Laterality Modality Lower Extremity Radio Fluoroscop y 12/19/2016 1:00 PM CDT Impressions 12/19/2016 1:01 PM CDT A single intraoperative fluoroscopic C-arm spot radiograph of the knee in the AP projection is submitted for interpretation and limited to the [id number]. The previously seen osteochondroma along the medial [...] submitted for interpretation and limited to the [id number]. The previously seen osteochondroma along the medial aspect of the distal femoral metaphysis is no longer seen. Gas is present in the adjacent soft tissues. Jag Tijerina MD DIAGNOSTIC IMAGING O RDERABLES * GROSS + MICRO EXAM (STL) (12/19/2016 12:36 PM CDT) Case Report Surgical Pathology Report ? Case: [id number] ? Authorizing Provider: ??Jag Tijerina MD ? Collected: ? 12/19/2016 12:36 PM ? Ordering Location: ? [facility] ? Received: ?12/19/2016 01:35 PM ? Pathologist: ? Nancy Camacho MD ? Specimen: ?Osteochondroma, left distal femur osteochondroma ? 12/23/2016 6:07 PM CDT [facility] Final Diagnosis BONE, DISTAL LEFT FEMUR, EXCISION: - CONSISTENT WITH OSTEOCHONDROMA. 12/23/2016 6:07 PM CDT [facility] Clinical History The patient is a 16-year-old girl who underwent excision of a left distal femur osteochondroma diagnosed radiologically in 2013. XR Left Knee 12/22/2013: Osteochondroma arising from the anteromedial aspect of the distal femur 12/23/2016 6:07 PM [facility] Gross Description Submitted fresh in one [...] A1 through A3. (CT/jl) 12/23/2016 6:07 PM [facility] Microscopic Description A) 3 H&E Review of material submitted reveals fibroconnective tissue, adipose tissue, skeletal muscle, mature trabecular bone with with fibrotic or fatty marrow and islands of mature hyaline cartilage. The architecture of an osteochondroma is not seen because of distortion of the specimen but the findings are consistent with an osteochondroma. (TROY/VELIA/butch) 12/23/2016 6:07 PM [facility] Disclaimer The performance characteristics of all immunohistochemical and indirect immunofluorescence stains (if any) cited in this report were determined by the Histopathology Laboratory of [facility]. Some of these tests were [...] the attending (teaching) pathologist. 12/23/2016 6:07 PM [facility] Embedded Images 12/23/2016 6:07 PM [facility] Pathology/Cytol ogy OSTEOCHONDROMA / Unknown 12/19/2016 12:36 PM CDT 12/19/2016 1:35 PM CDT Narrative Authorizing Provider Result Isabela Tijerina MD LAB - PATHOLOGY/CYTO LOGY ORDERABLES [facility] [address] [place] [address] * HCG URINE QUALITATIVE - POCT (IP) BEAKER (12/19/2016 7:45 AM CDT) HCG Qual Urine Negative Negative [facility] POCT TEST[facility] QC Verified Yes Yes [facility] PO CT TESTING Urine URINE / Unknown 12/19/2016 7 :45 AM CDT Narrative Authorizing Provider Result Isabela Tijerina MD LAB - POINT OF CARE ORDERABLES Performing Organization Address [facility] Co de Phone Number [facility] [address] [phone] * XR KNEE 3 VW LEFT (12/15/2016 11:33 AM CDT) Only the most recent of2 resultswithin the time period is included. Anatomical Region Laterality Modality Lower Extremity Radiographic Leeanne ging 12/15/2016 11:3 6 AM CDT Impressions 12/15/2016 12:16 PM CDT Interval bone loss at the tip of the distal femoral osteochondroma with indistinctness and irregularity of the cortical margin. These findings may represent partial resection or malignant transformation. Clinical correlation with surgical history is recommended and if there is concern for malignant transformation, a MRI without and with contrast may be obtained for further evaluation. Dictated by Marika Mortensen MD (resident). I, Yahir Boland, have personally reviewed the images and I agree with this report. Narrative 12/15/2016 12:16 PM CDT Exam: Left knee, 3 views Date: 12/15/2016 Indication: 16-year-old female with osteochondroma. Comparison: Left femur radiographs dated 08/07/2014 and left knee radiographs dated 12/22/2013 Findings: The osteochondroma arising from the anteromedial aspect of the distal femoral metadiaphysis has decreased in length since the radiographs dated 12/22/2013. The osteochondroma demonstrates loss of bone at its tip with indistinctness and irregularity of the cortical margin. No associated soft tissue lesion is identified. There is no acute fracture. The knee joint alignment is normal and the joint space is preserved. There is no soft tissue swelling or knee joint effusion. The osseous mineralization is normal. Procedure Note Yahir Boland MD - 12/15/2016 Exam: Left knee, 3 views Date: 12/15/2016 Indication: 16-year-old female with osteochondroma. Comparison: Left femur radiographs dated 08/07/2014 and left knee radiographs dated 12/22/2013 Findings: The osteochondroma arising from the anteromedial aspect of the distal femoral metadiaphysis has decreased in length since the radiographs dated 12/22/2013. The osteochondroma demonstrates loss of bone at its tip with indistinctness and irregularity of the cortical margin. No associated soft tissue lesion is identified. There is no acute fracture. The knee joint alignment is normal and the joint space is preserved. There is no soft tissue swelling or knee joint effusion. The osseous mineralization is normal. IMPRESSION Interval bone loss at the tip of the distal femoral osteochondroma with indistinctness and irregularity of the cortical margin. These findings may represent partial resection or malignant transformation. Clinical correlation with surgical history is recommended and if there is concern for malignant transformation, a MRI without and with contrast may be obtained for further evaluation. Dictated by Marika Mortensen MD (resident). I, Yahir Boland, have personally reviewed the images and I agree with this report. Brian Snow MD DIAGNOSTIC IMAGING ORDERABLES * XR FEMUR 2 VW LEFT (08/07/2014 11:54 AM GARDEN MACHINERY MECHANIC) Anatomical Region Laterality Modality Lower Extremity Radiographic Leeanne ging 08/07/2014 12:0 8 PM GARDEN MACHINERY MECHANIC Impressions 08/07/2014 12:09 PM GARDEN MACHINERY MECHANIC Unchanged appearance of the distal femoral osteochondroma. Narrative 08/07/2014 12:09 PM GARDEN MACHINERY MECHANIC Exam: Left femur, 2 views History: 14-year-old [...] osteochondroma. Selene Orr MD DIAGNOSTIC IMAGING O RDERABLES * XR ANKLE 2 VW RIGHT (12/22/2013 [...] are seen. Danni CONTRERAS DIAGNOSTIC IMAGING O [facility] Care Teams Belly Packer Relationship Specialty Start Date End Date Michel Dinero APRN-TONY [facility] [phone] PCP - General Nurse Practitioner 12/11/13
--- OUTSIDE RECORDS SUMMARY | 2024-06-27 10:16 | XMS_ITS | Encounter Summary ---
Author Organization [facility] Address [address] [place] [address] Care Team Providers Care Refuse And Recycling Worker Name Role Phone Michel Dinero CHART CLERK-RAG COLLECTOR Primary Care Pro vider Encounter Details Date Type Department Care Team (Latest Contact Info) Description 12/15/2016 11:29 AM CDT - 12/15/2016 11:59 PM CDT Hospital Encounter [facility] Pediatrics - Radiology [address] [place] [address] Jag Tijerina MD [address] [facility] [facility] [address] [place] [address] Discharge Disposition: Home or Self Care Social History Tobacco Use Types Packs/Day Years Used Date Smoking Tobacco: Passive Smo ke Exposure - Never Smoker Smokeless Tobacco: Never Sex and Gender Information Value Date Recorded Sex Assigned at Not on file Gender Identity Not on file Sexual Orientation Not on file documented as of this encounter Medications at Time of Discharge Medication Sig Dispensed Refills Start Date End Date cetirizine (ZYRTEC) 10 MG tablet Take 10 mg by mouth once daily HYDROcodone-acetaminophen (NORCO) 5-325 MG tablet Take 1 Tab by mouth every 4 hours as needed for Pain 20 Tab 12/19/2016 07/16/2017 documented as of this encounter Plan of Treatment Not on file documented as of this encounter Procedures Procedure Name Priority Date/Time Associated Diagnosis Comments XR KNEE LEFT 3VW Routine 12/15/2016 11:3 3 AM CDT Osteochondroma of femur, left documented in this encounter Results * XR KNEE 3 VW LEFT (12/15/2016 11:33 AM CDT) Anatomical Region Laterality Modality Lower [...] report. Brian Snow MD DIAGNOSTIC IMAGING ORDERABLES documented in this encounter Visit Diagnoses Diagnosis Osteochondroma of femur, left documented in this encounter Care Teams Refuse And Recycling Worker Relationship Specialty Start Date End Date Michel Dinero, LEXI-TONY [facility] [phone] PCP - General Nurse Practitioner 12/11/13 documented as of this encounter
--- OUTSIDE RECORDS SUMMARY | 2024-06-27 10:16 | XMS_ITS | Encounter Summary ---
Author Organization [facility] Address [address] [place] [address] Care Team Providers Care Cad Application Support Specialist Name Role Phone Michel Dinero AUDIO TECHNICIAN-RELIGION TEACHER Primary Care Pro vider Reason for Visit * Reason Comments Pain Knee Left knee pain Encounter Details Date Type Department Care Team (Latest Contact Info) Description 12/15/2016 10:25 AM CDT - 12/15/2016 11:28 AM CDT Hospital Encounter [facility] - Orthopedics [address] [place] [id number] Jag Tijerina MD [address] [place] [address] [address] [place] [address] Discharge Disposition: Home or Self Care Social History Tobacco Use Types Packs/Day Years Used Date Smoking Tobacco: Passive Smo ke Exposure - Never Smoker Smokeless Tobacco: Never Sex and Gender Information Value Date Recorded Sex Assigned at Not on file Gender Identity Not on file Sexual Orientation Not on file documented as of this encounter Discharge Instructions * Patient Instructions* Brian Snow MD - 12/15/2016 11:56 AM CDT ORTHOPAEDIC CLINIC DISCHARGE INSTRUCTIONS SHEET DIAGNOSIS: 1. Osteochondroma of femur, left Follow Up: Appointment date and time: Please call Smita to schedule surgery. If you cannot keep an appointment, please call and notify . If you have a question for the orthopaedic nurse, call [phone], ext. [phone]. X-Rays next visit: Yes - Left Knee Medications prescribed: OTC analgesics Physicians orders: ?? Schedule Surgery for Osteochondroma Excision ?? Further diagnostic studies discussed and ordered: none ?? Therapy services - None School Excuse: Excused from School on 12/15/2016 Activity Restrictions: none To make an appointment, please call . To schedule the surgery discussed with the doctor during your child's office visit, call Smita at , ext. 1. If you have a question for the orthopaedic nurse, Gianni Barrientos, call [phone], ext. [phone]. If you have a question for Dr. Tijerina, you may leave a voicemail for him at , e-mailat [email or web address], or through [employer]. You can Like him on [employer] at [email or web address]. After visit summary completed by Brian Snow MD. documented in this encounter Medications at Time of Discharge Medication Sig Dispensed Refills Start Date End Date HYDROcodone-acetaminophen (NORCO) 5-325 MG tablet Take 1 Tab by mouth every 4 hours as needed for Pain 20 Tab 12/19/2016 07/16/2017 documented as of this encounter Progress Notes * Jag Tijerina MD - 12/15/2016 11:28 AM CDT PEDIATRIC ORTHOPAEDIC SURGERY Office Visit NAME: Tameka Sorto DATE OF SERVICE: 12/15/2016 DATE: 2000 PCP: CIARA Harrington Chief Complaint Patient presents with ??? Pain Knee Left knee pain SUBJECTIVE: Tameka presents for a New Problem Evaluation - patient has been previously seen in clinic ~2 years ago. Tameka Sorto is a 16 y.o. 9 m.o. female who presents to discuss a symptomatic and painful left distal femur osteochondroma that has been treated with observation. She was offered operative removal in the past if the pain was significant. The pain has recently become progressively worse and would like to discuss further treatment options. The pain does not wake her up at night or interfere with her activities The patient's pain is well controlled. The pain is alleviated by rest. The patient denies new onset of numbness in her extremities. Patient presents today with her mother and dialysis equipment technician. PAST MEDICAL HISTORY: has a past medical history of Knee pain (12/22/2013); Osteochondroma of left femur (12/22/2013); and pre diabetes. She also has no past medical history of Acute upper respiratory infection; Apnea; Asthma; Congenital heart disease; Convulsions; GERD (gastroesophageal reflux disease); or Methicillin resistant Staphylococcus [...] children. REVIEW OF SYSTEMS: History obtained from mother and the patient. A 10 point ROS was obtained and all others were negative except what is listed in the HPI. PHYSICAL EXAMINATION:There were no vitals taken for this visit. General appearance: She has good head control. Orientation: alert, cooperative, no distress. Mood&affect: both mood and affect are normal Extremities: The uninjured right lower extremity was examined and demonstrated normal skin, normal range of motion and alignment of all joint, normal motor, sensory and vascular examination, and was without pain.It was used for comparison when examining the injured left lower extremity. The examination was performed Skin: normal Swelling: mild Tenderness: moderate, located over left distal medial femur. Deformity: No ROM: normal and equal bilaterally, mild pain with flexion > 90 degrees noted on exam. Strength: normal Gait: normal Neurological Exam: normal Vascular Exam: normal Knee exam ?? RIGHT LEFT SKIN: No rashes or abnormal dyspigmentation No rashes or abnormal dyspigmentation ? INSPECTION: ? Swelling - none none Warmth - no warmth no warmth ? TENDERNESS: ? Knee - None None ankle No tenderness No tenderness EFFUSION: ? Knee - none none ? ROM: ? Hip - normal normal Knee - normal normal Ankle - normal normal ?? Silfverskiold reveals 15 (knees flexed) and 5 (knees extended) Silfverskiold reveals 15 (knees flexed) and 0 (knees extended) STRENGTH: normal 5/5 strength in all tested muscle groups normal 5/5 strength in all tested muscle groups ? SENSORY: normal normal ? VASCULAR EXAM: pulses present pulses present ? STABILITY: ? Knee - stable to testing stable to testing ? SPECIAL TEST: ? Knee - Shannon's - negative Posterior sag - no Patellar Apprehension - Negative J-Sign - Negative Shannon's - negative Posterior sag - no Patellar Apprehension - Negative J-Sign - Negative ? ALIGNMENT: ? Knee - normal normal RADIOLOGY: taken and reviewed. Left Knee - there is a osteochondroma of the left medial distal femur - mild change in appearance compared to last X-ray taken in 2014. ASSESSMENT: 16 y.o. 9 m.o. female with : 1. Osteochondroma of femur, left PLAN: 1. Questions solicited and answered. Patient/family voiced understanding to info/instructions given. 2. Treatment options discussed include: The patient osteochondroma - has become more symptomatic and she may benefit from operative excision. Also advised that there is a small risk of recurrence. Risks, benefits alternatives discussed. Patient would like to proceed with operative removal. 3. Medications Prescribed: OTC analgesics 4. Activity Restrictions: none 5. Weightbearing status: No Restrictions 6. Mother 7. Follow up: Advised to schedule Surgery with Smita when ready for operative intervention. ATTENDING ATTESTATION STATEMENT I have personally seen and evaluated Tameka with the resident. I confirm the alexandre elements of the history to include: Chief Complaint Patient presents with ??? Pain Knee Left knee pain I have discussed the results of the physical exam and all studies with Tameka and her family. I confirm the alexandre elements of the physical exam. I have reviewed all radiographic studies with the resident and confirm the assessment. I developed the above assessment and discussed it with Tameka's family.The encounter diagnosis was Osteochondroma of femur, left. I confirm the alexandre elements of the plan of care . documented in this encounter Plan of Treatment Not on file documented as of this encounter Results * XR KNEE 3 [...] and I agree with this report. Brian Sonw MD DIAGNOSTIC IMAGING ORDERABLES documented in this encounter Visit Diagnoses Diagnosis Osteochondroma of femur, left- Primary Osteochondroma of femur, left documented in this encounter Care Teams Cad Application Support Specialist Relationship Specialty Start Date End Date Michel Dinero APRN-TONY [facility] [address] PCP - General Nurse Practitioner 12/11/13 documented as of this encounter
--- OUTSIDE RECORDS SUMMARY | 2024-06-27 10:16 | XMS_ITS | Referral Summary ---
Author Organization [facility] Address [address] [place] [address] Care Team Providers Care Oriental Rug Stretcher Name Role Phone Michel Dinero SAFETY SUPERVISOR-ELECTRONIC TECHNICIAN Primary Care Pro vider Source Comments [facility],non-owned Affiliates and Associated Physician Practices is amultiple site organization consisting of ambulatory clinics and hospital sitesin [place], [place], [place] and [place]. This disclosure is being madepursuant to the Care Everywhere program and may not contain all information available regarding this patient. Last updated 18.[employer] [facility] Allergies No known active allergies Medications * [...] (111 lb 12.4 oz) 018 10:58 AM MATERIAL INSPECTOR Height 154.5 cm (5' 0.83 ) 12/19/2016 7:30 AM CD T Body Mass Index - - Functional Status Functional Status Response Date of [...] person have difficulty concentrating/remembering/making decisions? No 12/19/2016 Plan of Treatment Not on file Care Teams Oriental Rug Stretcher Relationship Specialty Start Date End Date Michel Dinero APRN-TONY [facility] [address] PCP - General Nurse Practitioner 12/11/13
--- OUTSIDE RECORDS SUMMARY | 2024-06-27 10:16 | XMS_ITS | Encounter Summary ---
Author Organization [facility] Address [address] [place] [address] Care Team Providers Care Exercise Physiology Professor Name Role Phone Unavailable Primary Care Provider Unavailabl e Encounter Details Date Type Department Care Team (Late st Contact Info) Description 03/25/2021 Lab Requisition [facility] [place] [facility] Community Testing [facility] [address] [place] [address] Papo Heck MD [address] [place] [address] [address] [place], [place] [id number] Social History Tobacco Use Types Packs/Day Years [...] Diagnosis Comments SARS-COV-2 PCR [facility] ONLY Routine 03/25/2021 2:29 PM CDT documented in this encounter Visit Diagnoses Not on filedocumented in this encounter
--- OUTSIDE RECORDS SUMMARY | 2024-06-27 10:16 | XMS_ITS | Encounter Summary ---
Author Organization [facility] Address [address] [place] [address] Care Team Providers Care Special Education Math Teacher Name Role Phone Michel Dinero TRAVELING OPERATOR-TUBE DEPATCHER Primary Care Pro vider Reason for Visit * Auth/Cert Specialty Diagnoses / Procedures Referred By Mitchell t Referred To Contact Diagnoses Benign neoplasm of femur, left Benign neoplasm of femur, left Procedures EXCISION CYST BONE FEMUR Referral ID Status Reason Start Date Expiration Date Visits Re quested Visits Authorized [id number] 1 1 Encounter Details Date Type Department Care Team (Late st Contact Info) Description 12/19/2016 11:54 AM CDT Anesthesia Event [facility] - Periop [address] [place] [address] Bahman Mack MD [address] [place] [address] Smita Odell APRN-DISPATCHER RELAY [address] [facility] [place] [address] Anesthesia Record Procedure Summary Procedure Name Responsible Anesthesiologist Anesthesia Start Time Anesthesia Stop Time EXCISION LEFT DISTAL FEMUR OSTECHONDROMA (Left: Leg) Bahman Mack MD 12/19/16 1154 12/19/16 1305 Events Date Time Event Comment 12/19/2016 1021 1154 An Start To OR monitors applied, Time Out performed. 1156 An Start Data 1208 PT Reassessment 1209 An Induction 1211 An LMA 1225 Time Out Anesthesia part icipated in timeout at the time documented in the record by nursing 1256 An LMA Removed 1256 an stop data 1256 Electnc Sig 1304 Handoff Checklist follo wed: 1. Identification of patient 2. Identification of responsible nurse 3. Discussion of pertinent medical history 4. Discussion of surgical/procedure course 5. Intraoperative anesthetic management and concerns 6. Expectations/plans for the early post-procedure period 7. Opportunity for questions and acknowledgement of report 1305 An Stop Meds Name Total ceFAZolin 1 g injection 1,400 mg fentaNYL 100 mcg/2mL injection 50 mcg lidocaine (MPF) 2% injection 40 mg propofol 200mg/20mL injection 170 mg dexamethasone 4 mg/mL injection 4 mg ondansetron 4 mg/2mL injection 4 mg midazolam 2 mg/2mL injection 2 mg morphine 2 mg/mL PF injection 2 mg isolyte-S pH 7.4 infusion 600 mL * Agents Name Insp. N2O Exp. Sevoflurane Insp. Sevoflurane * Blood No blood administrations on file. Lines, Drains, and Airways Type Details Placement Removal Peripheral IV Date: 12/19/16; Time : 829; Orientation: Right; Placed By: Manohar Ruiz RN; Tolerance: Well 12/19/16 0830 by Sruthi Ruiz RN 12/19/162007 by Generic, Auto Release LMA 12/19/16; 1211; L Ady DISPATCHER RELAY; Standard IV; easy mask; Intubating LMA; 2.5; Bilateral breath sounds, Chest Auscultation, CO2 Monitor; 12/19/16; 200712/19/16 1211 by Smita Odell APRN-DISPATCHER RELAY 12/19/162007 by Generic, Auto Release RETIRED Procedural Site 12/19/16; 1225; Left, Medial; Knee; 12/19/16; 200712/19/16 1225 by Jemma House RN 12/19/162007 by Generic, Auto Release RETIRED Oral/Nasal Airway (Peds/NICU) OR; 12/19/16; 1255; Oral Airway; 12/19/16; 200712/19/16 1255 by Smita Montero RN 12/19/162007 by Generic, Auto Release documented in this encounter Social History Tobacco Use Types Packs/Day Years Used Date Smoking Tobacco: Passive Smo ke Exposure - Never Smoker Smokeless Tobacco: Never Sex and Gender Information Value Date Recorded Sex Assigned at Not on file Gender Identity Not on file Sexual Orientation Not on file documented as of this encounter Consult Notes * Bahman Mack MD - 12/19/2016 7:48 AM CDT Pre-anesthesia Evaluation Tameka is a 16 year old female with seasonal allergies on zyrtec, pre diabetes managed with diet elsa left femur osteochondroma presenting for procedure listed below. Denies recent illness. Denies family hx of problems with anesthesia. History obtained with Citizen [place] LAMP can tender at bedside. Patient speaks both [place] and [place]. Urine HCG pending Procedure(s): EXCISION LEFT DISTAL FEMUR OSTECHONDROMA (Left Leg) Diagnosis: Benign neoplasm of femur, left [D16.22] Vital Signs: Temp: 96.6 ??F (12/19 0730) BMI: Estimated body mass index is 19.35 kg/(m^2) as calculated from the following: Height as of this encounter: 1.545 m (5' 0.83 ). Weight as of this encounter: 46.2 kg (101 lb 13.6 oz). History: Past Medical History: Diagnosis Date ??? FTND (full term normal delivery) ??? Knee pain 12/22/2013 ??? 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 pre diabetes managed by diet control, no meds Past Surgical History: Procedure Laterality Date ??? NEGATIVE SURGICAL HISTORY 12/15/2016 reports that she is a non-smoker but has been exposed to tobacco smoke. She has never used smokeless tobacco. Allergies: has No Known Allergies. Medications: Home Medications for Outpatients: No current outpatient prescriptions on file. Home Medications for Inpatients: Prescriptions Prior to Admission Medication Sig Dispense Refill ??? cetirizine (ZYRTEC) 10 MG tablet Take 10 mg by mouth once daily Inpatient Medications: No current facility-administered medications for this encounter. Physical Exam: NPO status: no solids since midnight (NPO 2030) Oriented to person, place and time (alert, cooperative child) Airway: II Neck ROM: full Dental exam findings: chipped (very small chip to upper left central incisor) Pulmonary exam: breath sounds CTA Heart sounds: S1 S2 Review of Systems: Positive for snoring (mild) Plan for Anesthesia: Reviewed allergies, history and medications ASA Score: 3. Anesthesia plan: general / ETT Planned method of induction: intravenous Planned postop destination: PACU Planned administration of opioids for postop analgesia Anesthesia plan, risks and benefits discussed with mother Anesthesia consent: obtained Plan accepted yes Discussed anesthesia plan with: DISPATCHER RELAY. Other findings: I Personally evaluated the patient including heart, lungs and airway documented in this encounter Plan of Treatment Not on file documented as of this encounter Visit Diagnoses Not on filedocumented in this encounter Administered Medications Inactive Administered Medications - up to 3 most recent administrations Medication Order MAR Action Action Date Dose Rate Site ceFAZolin (ANCEF) injection PRN, Starting on Sun12/19/16 at 1220, Until Sun12/19/16 at 1305, Anesthesia Intra-op $ Given 12/19/2016 12:20 PM CDT 1,400 mg dexamethasone (DECADRON) injection PRN, Nausea/Vomiting, Starting on Sun12/19/16 at 1220, Until Sun12/19/16 at 1305, Anesthesia Intra-op $ Given 12/19/2016 12:20 PM CDT 4 mg fentaNYL (PF) (SUBLIMAZE) injection PRN, Starting on Sun12/19/16 at 1208, Until Sun12/19/16 at 1305, Anesthesia Intra-op $ Given 12/19/2016 12:08 PM CDT 50 mcg isolyte-S pH 7.4 infusion CONTINUOUS PRN, Starting on Sun12/19/16 at 1156, Until Sun12/19/16 at 1305, Anesthesia Intra-op $ New Bag/Syringe 12/19/2016 12:26 PM CDT $ New Bag/Syringe 12/19/2016 11:56 AM CDT lidocaine (XYLOCAINE MPF) 2 % injection PRN, Starting on Sun12/19/16 at 1209, Until Sun12/19/16 at 1305, Anesthesia Intra-op $ Given 12/19/2016 12:09 PM CDT 40 mg midazolam (VERSED) injection PRN, Starting on Sun12/19/16 at 1154, Until Sun12/19/16 at 1305, Anesthesia Intra-op $ Given 12/19/2016 11:54 AM CDT 2 mg morphine injection PRN, Starting on Sun12/19/16 at 1243, Until Sun12/19/16 at 1305, Anesthesia Intra-op $ Given 12/19/2016 12:43 PM CDT 2 mg Ondansetron HCl (ZOFRAN) injection PRN, Nausea/Vomiting, Starting on Sun12/19/16 at 1220, Until Sun12/19/16 at 1305, Anesthesia Intra-op $ Given 12/19/2016 12:20 PM CDT 4 mg propofol (DIPRIVAN) injection PRN, Starting on Sun12/19/16 at 1209, Until Sun12/19/16 at 1305, Anesthesia Intra-op $ Given 12/19/2016 12:09 PM CDT 170 mg documented in this encounter Care Teams Special Education Math Teacher Relationship Specialty Start Date End Date Michel Dinero APRN-TONY [address] [place] [phone] PCP - General Nurse Practitioner 12/11/13 documented as of this encounter
--- OUTSIDE RECORDS SUMMARY | 2024-06-27 10:16 | XMS_ITS | Encounter Summary ---
Author Organization [facility] Address [address] [facility] [place] [address] Care Team Providers Care Burner Shaft Name Role Phone Michel Dinero ARM MAKER-CASTING ROOM OPERATOR Primary Care Pro vider Reason for Visit * Reason Comments Pain Knee Encounter Details Date Type Department Care Team (Latest Contact Info) Description 08/07/2014 11:05 AM CARBONATING STONE CLEANER - 08/07/2014 11:21 AM CARBONATING STONE CLEANER Hospital Encounter [facility] Pediatric[facility] - Orthopedics [address] [place] [address] Jag Tijerina MD [address] [place] [address] [address] [place] [address] Discharge Disposition: Home or Self Care Social History Tobacco Use Types Packs/Day Years Used Date Smoking Tobacco: Never Assessed Sex and Gender Information Value Date Recorded Sex Assigned at Not on file Gender Identity Not on file Sexual Orientation Not on file documented as of this encounter Discharge Instructions * Patient Instructions* Selene Orr MD - 08/07/2014 12:29 PM CARBONATING STONE CLEANER ORTHOPAEDIC CLINIC DISCHARGE INSTRUCTIONS SHEET DIAGNOSIS: 1. Osteochondroma of femur, left Follow Up: No return appointment is needed, but call for return appointment if you have concerns oryour child has new symptoms or problems. with Dr. Tijerina. If you cannot keep an appointment, please call and notify . If you have a question for the orthopaedic nurse, call [phone], ext. [phone]. X-Rays next visit: Yes - left femur Medications prescribed: OTC analgesics Physicians orders: ?? Further diagnostic studies discussed and ordered: none ?? Therapy services - None School Excuse: Excused from School on 08/07/2014 Activity Restrictions: none . To make an appointment, please call . If you would like to pursue surgery to remove the bump please contact our office. To schedule the surgery discussed with the doctor during your child's office visit, call Smita at , ext.1. If you have a question for the orthopaedic nurse, call , ext. 5. If you have a question for Dr. Tijerina, you may leave a voicemail for him at or you can contact him on Lyst at [email or web address]. After visit summary completed by Selene Orr MD. ONATING STONE CLEANER documented in this encounter Progress Notes * Jag Tijerina MD - 08/07/2014 1:03 PM CST PEDIATRIC ORTHOPAEDIC CLINIC NOTE NAME: Tameka Sorto DATE OF SERVICE: 08/07/2014 DATE: 2000 PCP: Michel Dinero Chief Complaint Patient presents with ??? Pain Knee SUBJECTIVE: Tameka presents for a Follow-Up Evaluation. Tameka Sorto is a 14 y.o. female who presents with left distal femur osteochondroma. She was seen about 6 months ago and was sent to physical therapy which she attended but after she stopped going she stopped doing the exercises. Her knee pain,which was her initial complaint has not been bothersome since stopping PT. Mechanical symptoms: none Neurological complaints: no Vascular complaints: none Associated symptoms: none Previous workup: X-rays REVIEW OF SYSTEMS: History obtained from mother. A 12 point ROS was obtained and all others were negative except what is listed in the HPI. PHYSICAL EXAMINATION:Wt 90 lb (86890 g) BMI 17.58 kg/m2 General appearance: She has good head [...] none Warmth - no warmth no warmth TENDERNESS: Knee - None None ankle No tenderness No tenderness EFFUSION: Knee - none none ROM: Hip - normal normal Knee - normal normal Ankle - normal normal Silfverskiold reveals 15 (knees flexed) and 5 [...] Gait: normal gait and stance, nonspastic RADIOLOGY: Xrays of the left femur reveal a stable distal-medial osteochondroma. Growth plates are closed at this time ASSESSMENT: 1. Osteochondroma of femur, left PLAN: 1. Questions solicited and answered. 2. Patient voiced understanding to info/instructions given. 3. Encourage home exercise 4. Medications Prescribed: none 5. Brace: none 6. Activity Restrictions: none 7. Weightbearing status: No Restrictions 8. Follow up: as needed. If she decides that she would like the osteochondroma removed in the future she will need to make schedule a date for surgery. They will call with questions. ATTENDING ATTESTATION STATEMENT I have personally seen and evaluated Tameka with the resident. I confirm the alexandre elements of the history to include: Chief Complaint Patient presents with ??? Pain Knee I have discussed the results of the physical exam and all studies with Tameka and her family. I confirm the alexandre elements of the physical exam to include mild pain over distal medial left femur, mass present, non-adherent to the underlying structures. I have reviewed all radiographic studies with the resident and confirm the assessment. I developed the above assessment and discussed it with Tameka's family. I confirm the alexandre elements of the assessment to include: 1. Osteochondroma of femur, left I confirm the alexandre elements of the plan of care to include: 1. Treatment: discussed non-operative and operative treatment. 2. Follow-up: No return appointment is needed, but call for return appointment if you have concernsor your child has new symptoms or problems. ONATING STONE CLEANER documented in this encounter Plan of Treatment Not on file documented as of this encounter Results * XR FEMUR 2 VW LEFT (08/07/2014 11:54 AM CARBONATING STONE CLEANER) Anatomical Region Laterality Modality Lower Extremity Radiographic Leeanne ging 08/07/2014 12:0 8 PM CARBONATING STONE CLEANER Impressions 08/07/2014 12:09 PM CARBONATING STONE CLEANER Unchanged appearance of the distal femoral osteochondroma. Narrative 08/07/2014 12:09 PM CARBONATING STONE CLEANER Exam: Left femur, 2 views History: 14-year-old [...] Selene Orr MD DIAGNOSTIC IMAGING O RDERABLES documented in this encounter Visit Diagnoses Diagnosis Osteochondroma of femur, left Osteochondroma of femur, left documented in this encounter Care Teams Burner Shaft Relationship Specialty Start Date End Date Michel Dinero ARM MAKER-CASTING ROOM OPERATOR [address] [place] [phone] PCP - General Nurse Practitioner 12/11/13 documented as of this encounter
--- OUTSIDE RECORDS SUMMARY | 2024-06-27 10:16 | XMS_ITS | Encounter Summary ---
Author Organization [facility] Address [address] [place] [address] Care Team Providers Care Exhibition Specialist Name Role Phone Michel Dinero SQL SSIS DEVELOPER-UTILITY SPECIALIST Primary Care Pro vider Reason for Visit * Reason Comments Breast Cyst left breast not palp able any more Encounter Details Date Type Department Care Team (Late st Contact Info) Description 07/16/2017 10:20 AM BIRTH ATTENDANT - 07/16/2017 11:59 PM BIRTH ATTENDANT Hospital Encounter [facility] Pediatrics - Surgery [address] [place] [address] Katrin Forrester MD [address] [place] [address] [place] [address] Discharge Disposition: Home or Self Care Social [...] - Inhaled Oxygen Concentration - - Weight 50.7 kg (111 lb 12.4 oz) 018 10:58 AM BIRTH ATTENDANT Height - - Body Mass Index - - documented in this encounter Functional Status Functional [...] No 12/19/2016 documented as of this encounter Medications at Time of Discharge Medication Sig Dispensed Refills Start Date End Date cetirizine (ZYRTEC) 10 MG tablet Take 10 mg by mouth once daily documented as of this encounter H&P Notes * Katrin Forrester MD - 07/16/2017 11:32 AM CST Images from the original note were not included. Attending Physician: Katrin Forrester MD Office 07/16/2017 11:33 AM Pediatric General Surgery History and Physical Encounter Date: 07/16/2017 Patient's Primary Care Physician: Michel Dinero APRN-UTILITY SPECIALIST Name: Tameka Sorto Age: 17 y.o. Race: Sex: female Date: 07/16/2017 Chief Complaint/History of Present Illness Chief Complaint: Left breast cyst Tameka Sorto is a 17 y.o. female with a history of a left breast cyst which was initially noted in May 2017. At that time, the site was painful with overlying skin redness, though there was no drainage. Tameka was given a 10 day course of antibiotics at that time with complete resolution. No specific precipitating factors were identified and there have been no prior similar episodes. Currently, there are no breast masses and there is no tenderness. Past Medical History: Past Medical History: Diagnosis Date ??? FTND (full term normal delivery) ??? Knee pain 12/22/2013 ??? 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 pre diabetes managed by diet control, no meds Reviewed, no changes. Past Surgical Hisotry: Past Surgical History: Procedure Laterality Date ??? EXCISION/DESTRUCTION BONE LESION Left 12/19/2016 Left; EXCISION LEFT DISTAL FEMUR OSTECHONDROMA ??? NEGATIVE SURGICAL HISTORY 12/15/2016 Reviewed, no changes. Family History: Family History Problem Relation Age of Onset ??? Anesthesia Reaction Neg Hx No history of breast disease. Social History: Social History Occupational History ??? Not on file. Social History Main Topics ??? Smoking status: Passive Smoke Exposure - Never Smoker ??? Smokeless tobacco: Never Used ??? Alcohol use Not on file ??? Drug use: Not on file ??? Sexual activity: Not on file Current medications: Current Outpatient Prescriptions on File Prior to Encounter Medication Sig Dispense Refill ??? cetirizine (ZYRTEC) 10 MG tablet Take 10 mg by mouth once daily No current facility-administered medications on file prior to encounter. Allergies: No Known Allergies Review of Systems Constitutional: Negative Eyes: Negative Ears, nose, mouth, and throat: Negative Respiratory: Negative Cardiovascular: Negative Gastrointestinal: Negative Genitourinary:Negative Skin: Negative Breast: Per HPI. Hematologic/lymphatic: Negative Musculoskeletal:Negative Neurological: Negative Behavioral/Psych: Negative Endocrine: Negative Lives with: biological mother Physical Examination: Wt 50.7 kg (111 lb 12.4 oz) Wt Readings from Last 3 Encounters: 07/16/17 50.7 kg (111 lb 12.4 oz) (41 %, Z= -0.24)* 12/19/16 46.2 kg (101 lb 13.6 oz) (26 %, Z= -0.65)* 08/07/14 40.8 kg (90 lb) (38 %, Z= -0.31)* * Growth percentiles are based on CDC 2-20 Years data. Ht Readings from Last 3 Encounters: 12/19/16 1.545 m (5' 0.83 ) (14 %, Z= -1.10)* 08/07/14 1.524 m (5') (42 %, Z= -0.21)* 02/06/14 1.535 m (5' 0.43 ) (66 %, Z= 0.40)* * Growth percentiles are based on CDC 2-20 Years data. There is no height or weight on file to calculate BMI. No height and weight on file for this encounter. 41 %ile (Z= -0.24) based on CDC 2-20 Years [id number] data using vitals from 07/16/2017. No height on file for this encounter. Exam Vitals: 07/16/17 1058 Weight: 50.7 kg (111 lb 12.4 oz) General appearance: alert, cooperative, no distress Head: normocephalic, without trauma Eyes: sclera and conjunctiva clear Ears: hearing intact to voice Neck: no adenopathy, supple, no masses Breasts: symmetric, nontender, no masses or discharge Lungs: breath sounds normal and symmetric; no rales or wheezes Heart: regular rhythm Abdomen: soft without mass, non-tender, with normal bowel sounds Extremities: no clubbing, cyanosis or edema Skin: no rashes or other abnormalities are noted Neurologic: mental status normal Data There are no new lab results to review at this time. Assessment & Plan Tameka is a 17 y.o. female with a recent history of a breast lesion which responded to oral antibiotics and has fully resolved. She is currently asymptomatic and there are no breast lesions present. There is no indication for surgical intervention at this time. We will plan for surgical follow-up hol[place] as needed basis. Katrin Forrester MD 07/16/2017 11:33 AM H ATTENDANT documented in this encounter Plan of Treatment Not on file documented as of this encounter Visit Diagnoses Diagnosis Breast lesion Unspecified breast disorder documented in this encounter Care Teams Exhibition Specialist Relationship Specialty Start Date End Date Michel Dinero APRN-TONY [facility] [place] [phone] PCP - General Nurse Practitioner 12/11/13 documented as of this encounter
--- OUTSIDE RECORDS SUMMARY | 2024-06-27 10:16 | XMS_ITS | Encounter Summary ---
Author Organization [facility] Address [address] [place] [address] Care Team Providers Care Medical Collections Representative Name Role Phone Unavailable Primary Care Provider Unavailabl e Encounter Details Date Type Department Care Team (Late st Contact Info) Description 03/16/2021 2:15 PM CDT Rapid Evaluation [facility] Community Testing [address] [address] Social History Tobacco Use Types Packs/Day Years [...]
== END 2024-06-20 14:45 | disposition home or self-care (01) ==
PROVIDERS: Emergency Provider Emergency Medicine; PCP Registered Nurse
DX: O21.0 Mild hyperemesis gravidarum (principal); Z3A.01 Less than 8 weeks gestation of pregnancy; Z20.822 Contact with and (suspected) exposure to COVID-19
CPT/HCPCS: 36415; 80053; 81001; 81003; 85025; 87086; 87637; 96361; 96374; 99284; J2405; J7030

== ENCOUNTER 2024-07-15 14:34 | Outpatient (CLI) | payer OTHER, SELFPAY ==
[2024-07-15 15:11] LABS: Basophils Absolute Auto 0.1 K/mm3 (0.0-0.1); Basophils Percent Auto 0.6 % (0.2-1.2); Eosinophils Absolute Auto 0.1 K/mm3 (0-0.3); Eosinophils Percent Auto 0.7 % (0-4.4); Hematocrit 38.1 % (37.0-47.0); Hemoglobin 12.4 g/dL (12.0-15.0); Immature Granulocyte Absolute 0.03 K/mm3 (0.00-0.031); Immature Granulocyte Percent A 0.3 % (0-0.5); Lymphocytes Absolute Auto 2.03 K/mm3 (0.9-3.2); Lymphocytes Percent Auto 22.5 % (18.3-44.2); Mean Corpuscular HGB Conc 32.5 g/dl (32-36); Mean Corpuscular Hemoglobin 26.8 pg (26-34); Mean Corpuscular Volume 82.5 fl (80-100); Mean Platelet Volume 11.3 fl (7.4-10.4); Monocytes Absolute Auto 0.6 K/mm3 (0.1-0.6); Monocytes Percent Auto 6.3 % (2.6-8.5); Neutrophils Absolute Auto 6.3 K/mm3 (1.3-6.7); Neutrophils Percent Auto 69.6 % (45.5-73.1); Platelet Count Result 213 k/mm3 (150-375); Red Blood Count 4.62 M/mm3 (4.2-5.4); Red Cell Distribution Width 13.5 % (11.5-14.5)
[2024-07-15 16:04] LABS: Hepatitis B Surface Antigen Negative (Negative)
[2024-07-15 16:07] LABS: HIV 1/2 Ab P24 Ag Result Negative (Negative)
[2024-07-15 17:31] LABS: Rapid Plasma Reagin Non-Reactive (NonReactive)
[2024-07-17 08:03] LABS: Varicella IgG Antibody 4.24 S/CO
--- OUTSIDE RECORDS SUMMARY | 2024-07-17 19:11 | XMS_ITS | Referral Summary ---
Author Organization [facility] [employer] Address [address] [place] [address] Care Team Providers Care Process Improvement Analyst Name Role Phone Michel Dinero MEDIA MARKETING SPECIALIST-AIR CONDITIONING SUPERVISOR Primary Care Pro vider Source Comments [facility] [employer],non-owned Affiliates and Associated Physician Practices is amultiple site organization consisting of ambulatory clinics and hospital sitesin [place], [place], [place] and [place]. This disclosure is being madepursuant to the Care Everywhere program and may not contain all information available regarding this patient. Last updated 18.[employer] [facility] Allergies No known active allergies Medications * [...] (111 lb 12.4 oz) 018 10:58 AM A/C TECH Height 154.5 cm (5' 0.83 ) 12/19/2016 [...] of Treatment Not on file Care Teams Process Improvement Analyst Relationship Specialty Start Date End Date Michel Dinero APRN-TONY [facility] [phone] PCP - General Nurse Practitioner 12/11/13
--- OUTSIDE RECORDS SUMMARY | 2024-07-17 19:11 | XMS_ITS | Patient Health Summary ---
Author Organization [facility] Address [address] [facility] [place] [address] Care Team Providers Care Ballistics Tester Name Role Phone Michel Dinero FRUIT HARVEST WORKER-POKE IN Primary Care Pro vider Note from [facility],non-owned Affiliates and Associated Physician Practices is amultiple site organization consisting of ambulatory clinics and hospital sitesin [place], [place], [place] and [place]. This disclosure is being madepursuant to the Care Everywhere program and may not contain all information available regarding this patient. Last updated 18.[facility] Allergies No known active allergies Medications * [...] (111 lb 12.4 oz) 018 10:58 AM WOOD INSPECTOR Height 154.5 cm (5' 0.83 ) [...] submitted for interpretation and limited to the [id number]. The previously seen osteochondroma along the medial [...] submitted for interpretation and limited to the [id number]-hm-xubm. The previously seen osteochondroma along the medial aspect of the distal femoral metaphysis is no longer seen. Gas is present in the adjacent soft tissues. Jag Tijerina MD DIAGNOSTIC IMAGING O RDERABLES * GROSS + MICRO EXAM (STL) (12/19/2016 12:36 PM CDT) Case Report Surgical Pathology Report ? Case: [id number] ? Authorizing Provider: ??Jag Tijerina MD ? Collected: ? 12/19/2016 12:36 PM ? Ordering Location: ? [facility] ? Received: ?12/19/2016 01:35 PM ? Pathologist: ? Nancy Camacho MD ? Specimen: ?Osteochondroma, left distal femur osteochondroma ? 12/23/2016 6:07 PM CDT [facility] Final Diagnosis BONE, DISTAL LEFT FEMUR, EXCISION: - CONSISTENT WITH OSTEOCHONDROMA. 12/23/2016 6:07 PM CDT [facility] Clinical History The patient is a 16-year-old girl who underwent excision of a left distal femur osteochondroma diagnosed radiologically in 2013. XR Left Knee 12/22/2013: Osteochondroma arising from the anteromedial aspect of the distal femur 12/23/2016 6:07 PM [facility] Gross Description Submitted fresh in [...] A1 through A3. (CT/jl) 12/23/2016 6:07 PM [facility] Microscopic Description A) 3 H&E Review of material submitted reveals fibroconnective tissue, adipose tissue, skeletal muscle, mature trabecular bone with with fibrotic or fatty marrow and islands of mature hyaline cartilage. The architecture of an osteochondroma is not seen because of distortion of the specimen but the findings are consistent with an osteochondroma. (TROY/VELIA/butch) 12/23/2016 6:07 PM [facility] Disclaimer The performance characteristics of all immunohistochemical and indirect immunofluorescence stains (if any) cited in this report were determined by the Histopathology Laboratory of [facility]. Some of these tests were developed [...] the attending (teaching) pathologist. 12/23/2016 6:07 PM [facility] Embedded Images 12/23/2016 6:07 PM [facility] Pathology/Cytol ogy OSTEOCHONDROMA / Unknown 12/19/2016 12:36 PM CDT 12/19/2016 1:35 PM CDT Narrative Authorizing Provider Result Isabela Tijerina MD LAB - PATHOLOGY/CYTO LOGY ORDERABLES [facility] [address] [place] [address] * HCG URINE QUALITATIVE - POCT (IP) BEAKER (12/19/2016 7:45 AM CDT) HCG Qual Urine Negative Negative [facility] QC Verified Yes Yes [facility] PO CT TESTING Urine URINE / Unknown 12/19/2016 7 :45 AM CDT Narrative Authorizing Provider Result Isabela Tijerina MD LAB - POINT OF CARE ORDERABLES Performing Organization Address [facility] Co de Phone Number [facility] [address] [phone] * XR KNEE 3 VW LEFT (12/15/2016 [...] FEMUR 2 VW LEFT (08/07/2014 11:54 AM WOOD INSPECTOR) Anatomical Region Laterality Modality Lower Extremity Radiographic Leeanne ging 08/07/2014 12:0 8 PM WOOD INSPECTOR Impressions 08/07/2014 12:09 PM WOOD INSPECTOR Unchanged appearance of the distal femoral osteochondroma. Narrative 08/07/2014 12:09 PM WOOD INSPECTOR Exam: Left femur, 2 views History: 14-year-old [...] are seen. Danni CONTRERAS DIAGNOSTIC IMAGING O [facility] Care Teams Ballistics Tester Relationship Specialty Start Date End Date Michel Dinero APRN-TONY [facility] [phone] PCP - General Nurse Practitioner 12/11/13
--- OUTSIDE RECORDS SUMMARY | 2024-07-17 19:11 | XMS_ITS | Clinical Summary ---
Author Organization [facility] Care Team Providers Care Business Systems Lead Name Role Phone Unavailable Primary Care Provider [...] Comments Hepatitis C Virus (HCV) Screening 2002 Pap Smear 2023 Influenza Immunization (#1) 02/24/202403/25, 04/28/2020, 05/07/2019, Additional history exists SARS-COV-2 Immunization ( season) 2024 10/18/2020, 09/27/2020 Respiratory Syncytial Virus (RSV) Immunization (Adult) (1 - 1-dose 75+ series) 2077 Pneumococcal Immunization Combined Aged Out 11/24/2005 No longer eligible based on patient's age to complete this topic Hepatitis B Immunization Completed 007, 2002, 2002, Additional history exists Human Papillomavirus (HPV) Immunization Completed 09/13/2011, 05/15/2011, 03/13/2011 DTaP/Tdap/Td Immunization Discontinued 2013, 07/10/2006, 12/10/2003, Additional history exists TdaP Immunization Completed 12/10/2013 Meningococcal Immunization (ACWY) Completed 03/28/2018, 03/28/2016, 03/13/2011 Meningococcal B Immunization Completed 05/07/2019, 03/27/2019 Rotavirus Immunization Aged Out No lo nger eligible based on patient's age to complete this topic
--- OUTSIDE RECORDS SUMMARY | 2024-07-17 19:11 | XMS_ITS | Clinical Summary ---
Author Organization [facility] Address [address] [place] [address] Care Team Providers Care Correspondent Name Role Phone Michel Dinreo CLOTHES DRIER REPAIRER-GOLF CLUB WEIGHER Primary Care Pro vider Source Comments [facility],non-owned Affiliates and Associated Physician Practices is amultiple site organization consisting of ambulatory clinics and hospital sitesin [place], [place], [place] and [place]. This disclosure is being madepursuant to the Care Everywhere program and may not contain all information available regarding this patient. Last updated 18.[employer] Allergies No known active allergies Medications * [...] (111 lb 12.4 oz) 018 10:58 AM COMEDIAN Height 154.5 cm (5' 0.83 ) 12/19/2016 7:30 AM CD T Body Mass Index - - Plan of Treatment Health Maintenance Due Date Last Done Comments PAP SMEAR 2002 HIV SCREENING 2017 HPV VACCINE (1 - 3-dose series) 2017 CHLAMYDIA/GONORRHEA SCREENING 2018 MENINGOCOCCAL (Group B) VACC INE (1 of 2 - Standard) 2018 HEPATITIS C SCREENING 03/06/2020 DTAP/TDAP/TD VACCINES (1 - Tdap) 2021 HEPATITIS B VACCINE (1 of 3 - 19+ 3-dose series) 2021 COVID-19 VACCINE (1 - 2023-2 5 season) 2024 INFLUENZA VACCINE (#1) 2024 DEPRESSION SCREENING 06/25/2024 ZOSTER VACCINE (1 of 2) 2052 HIB VACCINE Aged Out No longer eligi ble based on patient's age to complete this topic MENINGOCOCCAL VACCINE Aged Out No rafia rigo eligible based on patient's age to complete this topic PNEUMOCOCCAL VACCINE Aged Out No long er eligible based on patient's age to complete this topic Care Teams Correspondent Relationship Specialty Start Date End Date Michel Dinero APRN-TONY [facility] [place] [phone] PCP - General Nurse Practitioner 12/11/13
== END 2024-07-15 14:35 | disposition home or self-care (01) ==
PROVIDERS: PCP Registered Nurse; Visit Provider Obstetrics & Gynecology
DX: N91.2 Amenorrhea, unspecified (principal)
CPT/HCPCS: 36415; 81220; 81329; 84702; 85025; 86592; 86644; 86703; 86747; 86762; 86787; 86850; 86900; 86901; 87086; 87340; G0432

== ENCOUNTER 2024-09-29 15:10 | Outpatient (CLI) | payer OTHER, SELFPAY ==
[2024-09-29 15:55] LABS: Add Urine Microscopic? YES; Appearance Urine Turbid (Clear); Bacteria Urine None Seen /hpf; Bilirubin Urine Negative (Negative); Blood Urine Negative (Negative); Color Urine Yellow (Yellow); Glucose Urine UA Negative (Negative); Ketones Urine Negative (Negative); Leukocyte Esterase Ur Negative LEU/UL (Negative); Nitrate Urine Negative (Negative); Non Pathogenic Casts 0-2; Protein Urine Negative (Negative); RBC Urine 0-2 /hpf (0-2); Specific Grav Ur 1.018 (1.001-1.035); Squamous Epithelial Cell Urine None Seen /hpf (Few); Urobilinogen Urine 0.2 mg/dL (<2.0); WBC Urine 0-5 /hpf (0-3); pH Urine 7.5 (5.0-9.0)
--- OUTSIDE RECORDS SUMMARY | 2024-09-29 17:21 | XMS_ITS | Clinical Summary ---
Author Organization [facility] [employer] Address [address] [place] [address] Care Team Providers Care Drilling Field Specialist Name Role Phone Michel Dinero PARTS SALES ADVISOR-KOSHER BUTCHER Primary Care Pro vider Source Comments [facility] [employer],non-owned Affiliates and Associated Physician Practices is amultiple site organization consisting of ambulatory clinics and hospital sitesin [place], [place], [place] and [place]. This disclosure is being madepursuant to the Care Everywhere program and may not contain all information available regarding this patient. Last updated 18.[employer] Allergies No known active allergies Medications * [...] 88 12/19/2016 1:45 PM CDT Temperature 35.8 C (96.4 F) 12/19/2016 1:06 PM CDT Respiratory Rate 14 12/19/2016 1:45 PM CDT Oxygen Saturation 100% 12/19/2016 1:45 PM CDT Inhaled Oxygen Concentration - - Weight 50.7 kg (111 lb 12.4 oz) 018 10:58 AM CERTIFIED LACTATION COUNSELOR Height 154.5 cm (5' 0.83 ) 12/19/2016 7:30 AM CD T Body Mass Index - - Plan of Treatment Health Maintenance Due Date Last Done Comments PAP SMEAR 2002 HIV SCREENING 2017 HPV VACCINE (1 - 3-dose series) 2017 CHLAMYDIA/GONORRHEA SCREENING 2018 MENINGOCOCCAL (Group B) VACC INE SHARED DECISION-MAKING (1 of 2 - Standard) 2018 HEPATITIS C SCREENING 03/06/2020 DTAP/TDAP/TD VACCINES (1 - Tdap) 2021 HEPATITIS B VACCINE (1 of 3 - 19+ 3-dose series) 2021 COVID-19 VACCINE (1 - 2023-2 5 season) 2024 DEPRESSION SCREENING 06/25/2024 INFLUENZA VACCINE (Season Ended) 2025 ZOSTER VACCINE (1 of 2) 2052 HIB VACCINE Aged Out No longer eligi ble based on patient's age to complete this topic MENINGOCOCCAL GROUPS A/C/Y/W VACCINE Aged Out No longer eligible b ased on patient's age to complete this topic PNEUMOCOCCAL VACCINE Aged Out No long er eligible based on patient's age to complete this topic Care Teams Drilling Field Specialist Relationship Specialty Start Date End Date Michel Dinero APRN-TONY [address] [place] [address] PCP - General Nurse Practitioner 12/11/13
--- OUTSIDE RECORDS SUMMARY | 2024-09-29 17:21 | XMS_ITS | Clinical Summary ---
Author Organization [facility] Care Team Providers Care Director Of Residential Services Name Role Phone Unavailable Primary Care Provider [...]
== END 2024-09-29 15:11 | disposition home or self-care (01) ==
PROVIDERS: PCP Obstetrics & Gynecology; Visit Provider Obstetrics & Gynecology
DX: R30.9 Painful micturition, unspecified (principal)
CPT/HCPCS: 81001; 87086

== ENCOUNTER 2024-10-13 00:08 | Observation (INO) | payer MEDICAID, SELFPAY ==
--- OUTSIDE RECORDS SUMMARY | 2024-10-13 00:16 | XMS_ITS | Clinical Summary ---
Author Organization [facility] Care Team Providers Care Door Assembler Name Role Phone Unavailable Primary Care Provider [...]
--- OUTSIDE RECORDS SUMMARY | 2024-10-13 00:16 | XMS_ITS | Clinical Summary ---
Author Organization [facility] [employer] Address [address] [place] [address] Care Team Providers Care Store Assistant Name Role Phone Michel Dinero INSTRUCTIONAL MANAGER-ONLINE ADVERTISING DIRECTOR Primary Care Pro vider Source Comments [facility] [employer],non-owned Affiliates and Associated Physician Practices is amultiple site organization consisting of ambulatory clinics and hospital sitesin [place], [place], [place] and [place]. This disclosure is being madepursuant to the Care Everywhere program and may not contain all information available regarding this patient. Last updated 18.[employer] Allergies No known active allergies Medications * Be aware that medications may not be up to date on this document. Alwaysverify current medications with the patient. cetirizine (ZYRTEC) 10 MG tablet Take 10 [...] Exposure - Never Smoker Smokeless Tobacco: Never Comments No Sex and Gender Information Value Date Recorded Sex Assigned at Not on file Legal Sex Female 1:37 PM CDT Gender Identity Not on file [...] (111 lb 12.4 oz) 018 10:58 AM PHOTOGRAPHS CURATOR Height 154.5 cm (5' 0.83 ) 12/19/2016 7:30 AM CD T Body Mass Index - - Plan of Treatment Health Maintenance Due Date Last Done Comments HIV SCREENING 2017 HPV VACCINE (1 - [...] on patient's age to complete this topic Insurance [facility] Care Teams Store Assistant Relationship Specialty Start Date End Date Michel Dinero, INSTRUCTIONAL MANAGER-ONLINE ADVERTISING DIRECTOR [facility] [place] [phone] PCP - General Nurse Practitioner 12/11/13
[2024-10-13 00:30] VITALS: BP 112/56; PULSE 87
[2024-10-13 00:45] VITALS: BP 109/61; PULSE 85
[2024-10-13 01:00] VITALS: BP 105/57; PULSE 81
[2024-10-13 01:15] VITALS: BP 104/63; PULSE 85
[2024-10-13 01:22] VITALS: BMI 24.8
--- NOTE | 2024-10-13 01:22 | LDADM ---
This patient, Tameka Ag, was admitted to OB Post 113 on 10/13/24 at 00:08. Plans for labor, pain management and were discussed with patient. Patient/family oriented to hospital policies and general routines including ID bracelet, bed and alarms, visiting hours, pain management, procedures, bathroom and other care routines, personal items, smoking policy, room service/diet and guest tray routines, security routines, and visiting hours. Patient/Family are encouraged to report perceived risks to care and to ask questions if they do not understand what they are told or what they should do. See OBIX for further documentation.
[2024-10-13 01:30] VITALS: BP 103/57; PULSE 84
--- NOTE | 2024-10-22 08:19 | PM.OBTRLD ---
OB - Triage/Final Diagnosis Visit Information Comments/Additional reasons for admission: I have assessed the risk for this patient, Tameka Ag, and determined that she would benefit from observation care. Final Diagnosis (1) Status post fall: Code(s): Z91.81 - History of falling Status: Acute
== END 2024-10-13 02:03 | disposition home or self-care (01) ==
PROVIDERS: Admitting Provider Obstetrics & Gynecology; Visit Provider Obstetrics & Gynecology
DX: O26.892 Other specified pregnancy related conditions, second trimester (principal); Z3A.23 23 weeks gestation of pregnancy; W19.XXXA Unspecified fall, initial encounter
CPT/HCPCS: G0378; G0379

== ENCOUNTER 2024-11-15 12:17 | Outpatient (CLI) | payer MEDICAID, SELFPAY ==
--- OUTSIDE RECORDS SUMMARY | 2024-11-15 12:20 | XMS_ITS | Clinical Summary ---
Author Organization [facility] [employer] Address [address] [place] [address] Care Team Providers Care Occupational Therapist Assistants Name Role Phone Michel Dinero RED HAT LINUX ADMINISTRATOR-CRYSTAL FINISHER Primary Care Pro vider Source Comments [facility] [employer],non-owned Affiliates and Associated Physician Practices is amultiple site organization consisting of ambulatory clinics and hospital sitesin [place], [place], [place] and [place]. This disclosure is being madepursuant to the Care Everywhere program and may not contain all information available regarding this patient. Last updated 18.[employer] Allergies No known active allergies Medications * [...] (111 lb 12.4 oz) 018 10:58 AM ENGRAVER HAND HARD METALS Height 154.5 cm (5' 0.83 ) 12/19/2016 [...] patient's age to complete this topic Insurance [facility] Care Teams Occupational Therapist Assistants Relationship Specialty Start Date End Date Michel Dinero, RED HAT LINUX ADMINISTRATOR-CRYSTAL FINISHER [facility] [place] [phone] PCP - General Nurse Practitioner 12/11/13
--- OUTSIDE RECORDS SUMMARY | 2024-11-15 12:20 | XMS_ITS | Clinical Summary ---
Author Organization [facility] Care Team Providers Care Director Bioinformatics Name Role Phone Unavailable Primary Care Provider [...]
[2024-11-15 13:34] LABS: Basophils Absolute Auto 0.1 K/mm3 (0.0-0.1); Basophils Percent Auto 0.7 % (0.2-1.2); Eosinophils Absolute Auto 0.1 K/mm3 (0-0.3); Eosinophils Percent Auto 0.7 % (0-4.4); Hematocrit 32.7 % (37.0-47.0); Hemoglobin 10.1 g/dL (12.0-15.0); Immature Granulocyte Absolute 0.19 K/mm3 (0.00-0.031); Immature Granulocyte Percent A 2.1 % (0-0.5); Lymphocytes Absolute Auto 1.22 K/mm3 (0.9-3.2); Lymphocytes Percent Auto 13.3 % (18.3-44.2); Mean Corpuscular HGB Conc 30.9 g/dl (32-36); Mean Corpuscular Hemoglobin 25.9 pg (26-34); Mean Corpuscular Volume 83.8 fl (80-100); Mean Platelet Volume 11.3 fl (7.4-10.4); Monocytes Absolute Auto 0.6 K/mm3 (0.1-0.6); Monocytes Percent Auto 6.5 % (2.6-8.5); Neutrophils Percent Auto 76.7 % (45.5-73.1); Platelet Count Result 210 k/mm3 (150-375); Red Cell Distribution Width 13.7 % (11.5-14.5); White Blood Count 9.1 K/mm3 (4.5-10.0)
[2024-11-15 13:44] LABS: Glucose 1 Hour PP 50gm Dose 108 mg/dL
[2024-11-15 14:14] LABS: Syphilis IgG/IgM Antibody Negative (Negative)
[2024-11-15 14:28] LABS: HIV 1/2 Ab P24 Ag Result Negative (Negative)
== END 2024-11-15 12:18 | disposition home or self-care (01) ==
LOC: ANHLAB 12:18
PROVIDERS: Visit Provider Obstetrics & Gynecology
DX: Z34.90 Encounter for supervision of normal pregnancy, unspecified, unspecified trimester (principal); Z3A.00 Weeks of gestation of pregnancy not specified
CPT/HCPCS: 36415; 82947; 85025; 86593; 86703; G0432

== ENCOUNTER 2024-11-22 12:40 | Observation (INO) | payer MEDICAID, SELFPAY ==
[2024-11-22] VITALS (15 sets, daily range): BP systolic 101–120; BP diastolic 54–68; PULSE 87–101; RESP 18; TEMP 36.6; O2SAT 93–100; BMI 25.0
--- OUTSIDE RECORDS SUMMARY | 2024-11-22 12:46 | XMS_ITS | Clinical Summary ---
Author Organization [facility] Care Team Providers Care Alterations Supervisor Name Role Phone Unavailable Primary Care Provider [...]
--- OUTSIDE RECORDS SUMMARY | 2024-11-22 12:46 | XMS_ITS | Clinical Summary ---
Author Organization [facility] [employer] Address [address] [place] [address] Care Team Providers Care General Office Worker Name Role Phone Michel Dinero GERONTOLOGY AIDE-CRTTS Primary Care Pro vider Source Comments [facility] [employer],non-owned Affiliates and Associated Physician Practices is amultiple site organization consisting of ambulatory clinics and hospital sitesin [place], [place], [place] and [place]. This disclosure is being madepursuant to the Care Everywhere program and may not contain all information available regarding this patient. Last updated 18.[place] [employer] Allergies No known active allergies Medications * [...] (111 lb 12.4 oz) 018 10:58 AM DEPUTY SHERIFF Height 154.5 cm (5' 0.83) 12/19/2016 7:30 AM CD T Body Mass [...] patient's age to complete this topic Insurance [facility] Care Teams General Office Worker Relationship Specialty Start Date End Date Michel Dinero, GERONTOLOGY AIDE-CRTTS [facility] [place] [phone] PCP - General Nurse Practitioner 12/11/13
--- NOTE | 2024-11-22 13:05 | OBADM ---
This patient, Tameka Ag, admitted to the OB room OB Post 116 for observation. Patient/family oriented to hospital policies and general routines including ID bracelet, bed and alarms, visiting hours, pain management, procedures, bathroom and other care routines, personal items, smoking policy, room service/diet, and visiting hours. Patient/Family are encouraged to report perceived risks to care and to ask questions if they do not understand what they are told or what they should do.
--- NOTE | 2024-11-24 09:27 | PM.OBTRLD ---
OB - Triage/Final Diagnosis Visit Information Date of evaluation: 11/22/24 Reason for evaluation: other (dizziness ) Comments/Additional reasons for admission: I have assessed the risk for this patient, Tameka Ag, and determined that she would benefit from observation care.
== END 2024-11-22 14:00 | disposition home or self-care (01) ==
PROVIDERS: Admitting Provider Student in an Organized Health Care Education/Training Program; Visit Provider Student in an Organized Health Care Education/Training Program
DX: O26.899 Other specified pregnancy related conditions, unspecified trimester (principal); R42 Dizziness and giddiness; Z3A.00 Weeks of gestation of pregnancy not specified
CPT/HCPCS: G0378; G0379

== ENCOUNTER 2024-12-02 16:40 | Outpatient (RCR) | payer MEDICAID, OTHER, SELFPAY ==
--- NOTE | 2024-11-01 00:32 | PC.NURSE ---
Pt here for dfm, pt stated that she has not felt baby move in 2 days. Pt denies any issues during this
--- NOTE | 2024-11-01 01:00 | PC.NURSE ---
Pt stated that she is feeling baby move her normal movements now
--- NOTE | 2024-11-01 01:03 | PC.NURSE ---
Call placed to Dr. Brady. Reported pt c/o pf dfm for 2 days. FHR, CTX, Vitals reported. Pt feeling movement, 12 suresh for movement in 30 minutes noted. Order to d/c pt home undelivered.
--- NOTE | 2024-11-01 01:05 | PC.NURSE ---
Pt discharged home undelivered in stable condition, discharge instructions explained to pt, pt stated understanding, all questions and concerns answered. Pt ambulated out of department with all belongings. S.O @ pt side.
[2024-11-01 01:08] VITALS: BP 128/79; PULSE 82
[2024-12-02 17:14] VITALS: BP 113/54; PULSE 110
== END 2025-01-30 23:59 | disposition home or self-care (01) ==
LOC: ANHOBOP 16:40
PROVIDERS: Visit Provider Obstetrics & Gynecology
DX: O36.8190 Decreased fetal movements, unspecified trimester, not applicable or unspecified (principal); Z3A.00 Weeks of gestation of pregnancy not specified
CPT/HCPCS: 59025; A9270

== ENCOUNTER 2024-12-04 14:16 | Outpatient (CLI) | payer OTHER, SELFPAY ==
[2024-12-04 14:48] LABS: INR 0.9; Prothrombin Time 12.5 Seconds (11.1-14.7)
[2024-12-04 14:49] LABS: Partial Thromboplastin Time 24.4 Seconds (22.3-36.8)
[2024-12-04 14:53] LABS: Alanine Aminotransferase 27 U/L (6-35); Albumin Level 3.6 g/dL (3.5-5.1); Alkaline Phosphatase 96 U/L (38-126); Anion Gap 6 mmol/L (4-12); Aspartate Amino Transferase 29 U/L (14-36); Bilirubin,Total 0.2 mg/dL (0.2-1.3); Blood Urea Nitrogen 7 mg/dL (7-17); Calcium 9.4 mg/dL (8.4-10.2); Carbon Dioxide 23 mmol/L (22-30); Chloride 105 mmol/L (98-107); Estimated Glomerular Filt Rate > 60; Glucose 109 mg/dL (65-110); Potassium 3.8 mmol/L (3.4-5.0); Sodium 134 mmol/L (137-145); Total Protein 6.7 g/dL (6.3-8.2)
--- OUTSIDE RECORDS SUMMARY | 2024-12-04 14:56 | XMS_ITS | Clinical Summary ---
Author Organization [facility] [employer] Address [address] [place] [address] Care Team Providers Care Rivet Heater Name Role Phone Michel Dinero DOCK HAND-PATTERNMAKER PLASTER AND PLASTIC Primary Care Pro vider Source Comments [facility] [employer],non-owned Affiliates and Associated Physician Practices is amultiple site organization consisting of ambulatory clinics and hospital sitesin [place], [place], [place] and [place]. This disclosure is being madepursuant to the Care Everywhere program and may not contain all information available regarding this patient. Last updated 18.[employer] Allergies No known active allergies Medications * [...] (111 lb 12.4 oz) 018 10:58 AM SHEET METAL SHOP FOREMAN Height 154.5 cm (5' 0.83) 12/19/2016 7:30 [...] patient's age to complete this topic Insurance [facility] Care Teams Rivet Heater Relationship Specialty Start Date End Date Michel Dinero, DOCK HAND-PATTERNMAKER PLASTER AND PLASTIC [facility] [place] [phone] PCP - General Nurse Practitioner 12/11/13
--- OUTSIDE RECORDS SUMMARY | 2024-12-04 14:56 | XMS_ITS | Clinical Summary ---
Author Organization [facility] Care Team Providers Care Pattern Painter Name Role Phone Unavailable Primary Care Provider [...]
[2024-12-10 19:13] LABS: Chenodeoxycholic Acid 1.4 umol/L (< OR = 3.9); Cholic Acid 1.8 umol/L (< OR = 2.8); Deoxycholic Acid 1.7 umol/L (< OR = 2.3); Total Bile Acids 4.9 umol/L (< OR = 8.3)
== END 2024-12-04 14:17 | disposition home or self-care (01) ==
PROVIDERS: Visit Provider Obstetrics & Gynecology
DX: O99.719 Diseases of the skin and subcutaneous tissue complicating pregnancy, unspecified trimester (principal); L29.9 Pruritus, unspecified; Z3A.00 Weeks of gestation of pregnancy not specified
CPT/HCPCS: 36415; 80053; 82542; 85610; 85730

== ENCOUNTER 2024-12-25 23:42 | Observation (INO) | payer OTHER, SELFPAY ==
[2024-12-25 23:51] VITALS: BMI 26.5
--- OUTSIDE RECORDS SUMMARY | 2024-12-25 23:51 | XMS_ITS | Clinical Summary ---
Author Organization [facility] Care Team Providers Care Mushroom Growth Media Mixer Name Role Phone Unavailable Primary Care Provider [...]
--- OUTSIDE RECORDS SUMMARY | 2024-12-25 23:51 | XMS_ITS | Clinical Summary ---
Author Organization [facility] [employer] Address [address] [place] [address] Care Team Providers Care Multiple Pressure Riveter Operator Name Role Phone Michel Dinero SPINDLE TESTER-MELT HELPER Primary Care Pro vider Source Comments [facility] [employer],non-owned Affiliates and Associated Physician Practices is amultiple site organization consisting of ambulatory clinics and hospital sitesin [place], [place], [place] and [place]. This disclosure is being madepursuant to the Care Everywhere program and may not contain all information available regarding this patient. Last updated 18.[employer] Allergies No known active allergies Medications * [...] (111 lb 12.4 oz) 018 10:58 AM MANAGER RELIABILITY Height 154.5 cm (5' 0.83) 12/19/2016 7:30 [...] patient's age to complete this topic Insurance [facility] Care Teams Multiple Pressure Riveter Operator Relationship Specialty Start Date End Date Michel Dinero, SPINDLE TESTER-MELT HELPER [facility] [place] [phone] PCP - General Nurse Practitioner 12/11/13
--- NOTE | 2024-12-25 23:52 | LDADM ---
This patient, Tameka Ag, was admitted to OB Post 116 on 12/25/24 at 23:42. Plans for labor, pain management and were discussed with patient. Patient/family oriented to hospital policies and general routines including ID bracelet, bed and alarms, visiting hours, pain management, procedures, bathroom and other care routines, personal items, smoking policy, room service/diet and guest tray routines, security routines, and visiting hours. Patient/Family are encouraged to report perceived risks to care and to ask questions if they do not understand what they are told or what they should do. See OBIX for further documentation.
[2024-12-26] VITALS: BP 107/71; PULSE 99
[2024-12-26 00:15] VITALS: BP 112/64; PULSE 103
--- NOTE | 2024-12-26 00:28 | PC.NURSE ---
Dr. Krishna notified of patient arrival to the labor and delivery unit with complaints of itching that started on her hands and feet three days ago. Patient states that the itching is now everywhere and increases in intensity at night time. New orders received to get labs for bile acids and live function. MD states to tell patient that is sounds like cholestasis and the labs that are being drawn will take one week to come back. MD states until results come back take Benadryl as directed on the packaging, oatmeal baths are encouraged and avoid hot showers. Orders confirmed at this time.
[2024-12-26 00:30] VITALS: BP 103/61; PULSE 99
[2024-12-26 00:45] VITALS: BP 108/69; PULSE 102
[2024-12-26 01:18] LABS: Alanine Aminotransferase 29 U/L (6-35); Albumin Level 3.5 g/dL (3.5-5.1); Alkaline Phosphatase 107 U/L (38-126); Anion Gap 9 mmol/L (4-12); Aspartate Amino Transferase 30 U/L (14-36); Bilirubin,Total 0.2 mg/dL (0.2-1.3); Blood Urea Nitrogen 8 mg/dL (7-17); Calcium 9.2 mg/dL (8.4-10.2); Carbon Dioxide 21 mmol/L (22-30); Chloride 105 mmol/L (98-107); Estimated CRCL calculation 117 ml/min; Estimated Glomerular Filt Rate > 60; Glucose 112 mg/dL (65-110); Potassium 4.1 mmol/L (3.4-5.0); Sodium 135 mmol/L (137-145); Total Protein 6.7 g/dL (6.3-8.2)
[2025-01-01 12:14] LABS: Total Bile Acids 9.6 umol/L (< OR = 8.3)
--- NOTE | 2025-01-20 16:29 | PM.OBTRLD ---
OB - Triage/Final Diagnosis Visit Information Comments/Additional reasons for admission: I have assessed the risk for this patient, Tameka Ag, and determined that she would benefit from observation care. Evaluation Laboratory results: Laboratory Tests 12/26/24 00:45 Sodium 135 L Potassium 4.1 Chloride 105 Carbon Dioxide 21 L Anion Gap 9 BUN 8 Creatinine 0.57 L Estim Creat Clear Calc 117 Estimated GFR > 60 Glucose 112 H Calcium 9.2 Total Bilirubin 0.2 AST 30 ALT 29 Alkaline Phosphatase 107 Total Protein 6.7 Albumin 3.5 Cholic Acid 5.2 H Deoxycholic Acid 1.2 Chenodeoxycholic Acid 3.2 Total Bile Acids 9.6 H Final Diagnosis (1) Pruritus of : Code(s): O99.719 - Diseases of the skin and subcutaneous tissue complicating , unspecified trimester; L29.9 - Pruritus, unspecified Status: Acute
== END 2024-12-26 01:10 | disposition home or self-care (01) ==
PROVIDERS: Admitting Provider Obstetrics & Gynecology; PCP Registered Nurse; Visit Provider Obstetrics & Gynecology
DX: O26.893 Other specified pregnancy related conditions, third trimester (principal); L29.9 Pruritus, unspecified; Z3A.33 33 weeks gestation of pregnancy
CPT/HCPCS: 36415; 80053; 82542; G0378; G0379

== ENCOUNTER 2025-01-09 07:31 | Observation (INO) | payer OTHER, SELFPAY ==
[2025-01-09 08:00] VITALS: BMI 26.8
--- OUTSIDE RECORDS SUMMARY | 2025-01-09 08:38 | XMS_ITS | Clinical Summary ---
Author Organization [facility] Care Team Providers Care Beater Boss Name Role Phone Unavailable Primary Care Provider [...]
--- OUTSIDE RECORDS SUMMARY | 2025-01-09 08:38 | XMS_ITS | Clinical Summary ---
Author Organization [facility] [employer] Address [address] [place] [address] Care Team Providers Care Tile Burner Name Role Phone Michel Dinreo LONG CHAIN DYEING MACHINE OPERATOR-SALES VICE PRESIDENT Primary Care Pro vider Source Comments [facility] [employer],non-owned Affiliates and Associated Physician Practices is amultiple site organization consisting of ambulatory clinics and hospital sitesin [place], [place], [place] and [place]. This disclosure is being madepursuant to the Care Everywhere program and may not contain all information available regarding this patient. Last updated 18.[employer] Allergies No known active allergies Medications * [...] lb 12.4 oz) 018 10:58 AM MANAGER IMPLEMENTATION Height 154.5 cm (5' 0.83) 12/19/2016 7:30 [...] season) 2024 DEPRESSION SCREENING 06/25/2024 INFLUENZA VACCINE (#1) 2025 ZOSTER VACCINE (1 of 2) 2052 HIB VACCINE Aged Out No longer eligi ble based on patient's age to complete this topic MENINGOCOCCAL GROUPS A/C/Y/W VACCINE Aged Out No longer eligible b ased on patient's age to complete this topic PNEUMOCOCCAL VACCINE Aged Out No long er eligible based on patient's age to complete this topic Insurance [facility] Care Teams Tile Burner Relationship Specialty Start Date End Date Michel Dinero, LONG CHAIN DYEING MACHINE OPERATOR-SALES VICE PRESIDENT [facility] [place] [phone] PCP - General Nurse Practitioner 12/11/13
[2025-01-09 09:07] LABS: Add Urine Microscopic? NO; Appearance Urine Clear (Clear); Glucose Urine UA 2+ mg/dL (Negative); Leukocyte Esterase Ur Negative LEU/UL (Negative); Nitrate Urine Negative (Negative); Specific Grav Ur 1.009 (1.001-1.035)
[2025-01-09] MEDS: TERBUTALINE SULFATE 1 MG/ML VIAL 0.25 MG SUB-Q (09:27)
[2025-01-09 10:38] VITALS: BP 116/73; PULSE 93
[2025-01-09 11:00] VITALS: BP 118/68; PULSE 95
[2025-01-09 12:00] VITALS: BP 113/70; PULSE 99
--- NOTE | 2025-01-09 12:22 | OBADM ---
This patient, Tameka Ag, admitted to the OB room Labor/Delivery/Recovery 105 for observation. Patient/family oriented to hospital policies and general routines including ID bracelet, bed and alarms, visiting hours, pain management, procedures, bathroom and other care routines, personal items, smoking policy, room service/diet, and visiting hours. Patient/Family are encouraged to report perceived risks to care and to ask questions if they do not understand what they are told or what they should do.
--- NOTE | 2025-01-12 08:15 | PM.OBTRLD ---
OB - Triage/Final Diagnosis Visit Information Comments/Additional reasons for admission: I have assessed the risk for this patient, Tameka Ag, and determined that she would benefit from observation care. Evaluation Laboratory results: Laboratory Tests 01/09/25 08:48 Urine Color Yellow Urine Appearance Clear Urine pH 7.0 Ur Specific [place] 1.009 Urine Protein Negative Urine Glucose (UA) 2+ H Urine Ketones Negative Ur Blood (Man) Negative Urine Nitrate Negative Urine Bilirubin Negative Urine Urobilinogen 0.2 Leukocyte Esterase Rfl Negative Final Diagnosis (1) Abdominal pain affecting : Code(s): O26.899 - Other specified related conditions, unspecified trimester; R10.9 - Unspecified abdominal pain Status: Acute
== END 2025-01-09 12:25 | disposition home or self-care (01) ==
PROVIDERS: Admitting Provider Obstetrics & Gynecology; PCP Registered Nurse; Visit Provider Obstetrics & Gynecology
DX: O26.893 Other specified pregnancy related conditions, third trimester (principal); R10.9 Unspecified abdominal pain; Z3A.35 35 weeks gestation of pregnancy
CPT/HCPCS: 81003; 96372; G0378; G0379; J3105

== ENCOUNTER 2025-01-20 12:38 | Outpatient (RCR) | payer OTHER, SELFPAY ==
[2025-01-05 16:41] VITALS: BP 112/73; PULSE 105
[2025-01-08 14:43] VITALS: BP 108/62; PULSE 98
[2025-01-12 16:18] VITALS: BP 113/72; PULSE 97
[2025-01-15 14:31] VITALS: BP 104/63; PULSE 99
[2025-01-15 14:52] VITALS: BP 104/63; PULSE 99
[2025-01-20 13:14] VITALS: BP 99/61; PULSE 91
== END 2025-01-31 10:49 | disposition home or self-care (01) ==
LOC: ANHOBOP 12:38
PROVIDERS: PCP Registered Nurse; Visit Provider Obstetrics & Gynecology
DX: O26.643 Intrahepatic cholestasis of pregnancy, third trimester (principal); Z3A.34 34 weeks gestation of pregnancy; Z3A.35 35 weeks gestation of pregnancy; Z3A.36 36 weeks gestation of pregnancy
CPT/HCPCS: 59025

== ENCOUNTER 2025-01-21 16:56 | Inpatient (IN) | payer OTHER, SELFPAY ==
[2025-01-21] VITALS (69 sets, daily range): BP systolic 85–107; BP diastolic 41–69; PULSE 84–144; TEMP 36.8–37.3; O2SAT 97–100; BMI 27.3
--- OUTSIDE RECORDS SUMMARY | 2025-01-21 17:02 | XMS_ITS | Clinical Summary ---
Author Organization [facility] [employer] Address [address] [place] [address] Care Team Providers Care Learning Coach Name Role Phone Michel Dinero CLAY CASTER-BOTTOM TURNING LATHE TENDER Primary Care Pro vider Source Comments [facility] [employer],non-owned Affiliates and Associated Physician Practices is amultiple site organization consisting of ambulatory clinics and hospital sitesin [place], [place], [place] and [place]. This disclosure is being madepursuant to the Care Everywhere program and may not contain all information available regarding this patient. Last updated 18.[employer] Allergies No known active allergies Medications * [...] (111 lb 12.4 oz) 018 10:58 AM ADJUNCT PROFESSOR OF VOICE Height 154.5 cm (5' 0.83) 12/19/2016 7:30 [...] patient's age to complete this topic Insurance [facility] Care Teams Learning Coach Relationship Specialty Start Date End Date Michel Dinero, CLAY CASTER-BOTTOM TURNING LATHE TENDER [facility] [place] [phone] PCP - General Nurse Practitioner 12/11/13
--- OUTSIDE RECORDS SUMMARY | 2025-01-21 17:02 | XMS_ITS | Clinical Summary ---
Author Organization [facility] Care Team Providers Care Vascular Manager Name Role Phone Unavailable Primary Care [...] (HCV) Screening 2002 SARS-COV-2 Immunization ( season) 2024 10/18/2020, 09/27/2020 Influenza Immunization (#1) 02/23/202503/25, 04/28/2020, 05/07/2019, Additional history exists Respiratory Syncytial Virus (RSV) Immunization (Adult) (1 [...]
[2025-01-21 18:46] LABS: Hematocrit 34.8 % (37.0-47.0); Hemoglobin 10.8 g/dL (12.0-15.0); Immature Granulocyte Percent A 2.3 % (0-0.5); Immature Platelet Fraction Pct 13.3 % (0.9-11.2); Lymphocytes Absolute Auto 1.22 K/mm3 (0.9-3.2); Mean Corpuscular HGB Conc 31.0 g/dl (32-36); Mean Corpuscular Hemoglobin 25.7 pg (26-34); Mean Corpuscular Volume 82.7 fl (80-100); Nucleated Red Blood Cells Absolute Auto 0.000 K/mm3 (0.0-0.012); Nucleated Red Blood Cells Perc 0.0 % (0.0-0.2); Platelet Count Result 153 k/mm3 (150-375); Red Blood Count 4.21 M/mm3 (4.2-5.4); White Blood Count 10.7 K/mm3 (4.5-10.0)
[2025-01-21 18:57] LABS: Alanine Aminotransferase 15 U/L (6-35); Albumin Level 3.5 g/dL (3.5-5.1); Alkaline Phosphatase 123 U/L (38-126); Anion Gap 8 mmol/L (4-12); Aspartate Amino Transferase 25 U/L (14-36); Bilirubin,Total 0.2 mg/dL (0.2-1.3); Blood Urea Nitrogen 8 mg/dL (7-17); Calcium 8.8 mg/dL (8.4-10.2); Carbon Dioxide 20 mmol/L (22-30); Chloride 107 mmol/L (98-107); Estimated Glomerular Filt Rate > 60; Glucose 116 mg/dL (65-110); Potassium 3.6 mmol/L (3.4-5.0); Sodium 135 mmol/L (137-145); Total Protein 6.5 g/dL (6.3-8.2)
[2025-01-21] MEDS: DINOPROSTONE 10 MG VAG INSERT VAGINAL (19:07)
[2025-01-21 19:25] LABS: Syphilis IgG/IgM Antibody Non-Reactive (Nonreactive)
--- NOTE | 2025-01-21 19:37 | LDADM ---
This patient, Tameka Ag, was admitted to Labor/Delivery/Recovery 102 on 01/21/25 at 16:56. Plans for labor, pain management and were discussed with patient. Patient/family oriented to hospital policies and general routines including ID bracelet, bed and alarms, visiting hours, pain management, procedures, bathroom and other care routines, personal items, smoking policy, room service/diet and guest tray routines, security routines, and visiting hours. Patient/Family are encouraged to report perceived risks to care and to ask questions if they do not understand what they are told or what they should do. See OBIX for further documentation.
--- NOTE | 2025-01-21 20:53 | P.HP_ITS ---
H&P: HPI History of Present Illness Date/Time: 01/21/25 20:53 Chief Complaint: induction of labor Narrative: Tameka is a 24yo @ 37.0wks who presents for medical IOL due to cholestasis of . She had elevated bile acids and has been going ANT (reassuring). She is on ursodiol and that has decreased her itching. She reports good movement. Irregular ctx. No VB or LOF. Her is complicated by: - h/o ectopic s/p mtx - parvo non-immune - Cholestasis; ANT, ursodiol, IOL @ 37wks Review of Systems Constitutional: Constitutional: Denies chills, Denies fever(s) and Denies headache(s) Eyes: Eyes: Denies change in vision ENT: Denies headache(s) Cardiovascular: Cardiovascular: Denies chest pain and Denies dyspnea Respiratory: Respiratory: Denies dyspnea Genitourinary: Genitourinary: Denies abnormal vaginal bleeding and Denies vaginal discharge Neurologic: Denies headache(s) Psychiatric: Psychiatric: Denies anxiety and Denies depression [facility] Past Medical History Medical History Cholestasis Patient denies significant medical history Surgical History Surgical History History of orthopedic surgery L knee ~2017 Family History Family History Other Diabetes mellitus Hypertension Social History Social History Smoking status: Never smoker Second hand tobacco smoke exposure: No Alcohol intake: never Substance use: never Substance use type: does not use Do You Feel Safe in your Home?: Yes Lack of Transportation: No Lack of Food: Never True Current Housing: I Have Housing Concerned About Future Housing: No Difficulty Paying Gas/Electric Bills: No Difficulty Paying for Meds: No Currently Unemployed: No Education: Associate Degree Difficulty w/ Childcare or Family Care: No Living arrangements: with family Occupation/Education: other Gender identity (if verbalized by the patient): Female Sexual Orientation (if Verbalized by the Patient): Straight or Heterosexual Spiritual care concerns: No Meds Home Medications and Allergies Home Medications ?Medication ?Instructions ?Recorded ?Confirmed ?Type docosahexaenoic acid 200 mg mg PO DAILY 07/01/24 01/19/25 History capsule ( DHA) aspirin 81 mg chewable tablet 81 mg PO DAILY 10/13/24 01/19/25 History ferrous sulfate 325 mg (65 mg 325 mg PO DAILY 12/04/24 01/19/25 History iron) tablet ursodiol 300 mg capsule 300 mg PO TID 30 days #90 caps 01/05/25 01/19/25 Rx diphenhydramine HCl 25 mg capsule 25 mg PO QHS PRN 01/13/25 01/19/25 History (Benadryl) Allergies Allergy/AdvReac Type Severity Reaction Status Date / Time No Known Allergies Allergy Verified 01/21/25 19:19 Vital Signs Vital Signs - 24 hr 01/21/25 18:25 01/21/25 18:28 01/21/25 18:33 Temperature Pulse Rate Blood Pressure Pulse Oximetry 100 99 98 Oxygen Delivery 01/21/25 18:38 01/21/25 18:43 01/21/25 18:48 Temperature Pulse Rate Blood Pressure Pulse Oximetry 98 98 98 Oxygen Delivery 01/21/25 18:53 01/21/25 18:58 01/21/25 18:59 Temperature Pulse Rate 97 Blood Pressure 106/61 Pulse Oximetry 98 98 Oxygen Delivery 01/21/25 19:02 01/21/25 19:03 01/21/25 19:03 Temperature 98.2 F Pulse Rate Blood Pressure Pulse Oximetry 99 99 Oxygen Delivery 01/21/25 19:12 01/21/25 19:13 01/21/25 19:18 Temperature Pulse Rate Blood Pressure Pulse Oximetry 100 99 Oxygen Delivery Room Air 01/21/25 19:23 01/21/25 19:28 01/21/25 19:31 Temperature Pulse Rate 103 H Blood Pressure 94/46 L Pulse Oximetry 99 100 Oxygen Delivery 01/21/25 19:33 01/21/25 19:38 01/21/25 19:43 Temperature Pulse Rate Blood Pressure Pulse Oximetry 99 100 100 Oxygen Delivery 01/21/25 19:48 01/21/25 19:53 01/21/25 19:58 Temperature Pulse Rate Blood Pressure Pulse Oximetry 100 99 99 Oxygen Delivery 01/21/25 20:01 01/21/25 20:03 01/21/25 20:08 Temperature Pulse Rate 98 Blood Pressure 88/41 L Pulse Oximetry 100 98 Oxygen Delivery 01/21/25 20:13 01/21/25 20:18 01/21/25 20:23 Temperature Pulse Rate Blood Pressure Pulse Oximetry 100 99 100 Oxygen Delivery 01/21/25 20:28 01/21/25 20:31 01/21/25 20:33 Temperature Pulse Rate 98 Blood Pressure 85/45 L Pulse Oximetry 98 99 Oxygen Delivery 01/21/25 20:38 01/21/25 20:43 01/21/25 20:48 Temperature Pulse Rate Blood Pressure Pulse Oximetry 99 99 99 Oxygen Delivery 01/21/25 20:53 Temperature Pulse Rate Blood Pressure Pulse Oximetry 97 Oxygen Delivery Exam Const: General: cooperative, healthy appearing, comfortable and no acute distress Orientation/consciousness: patient oriented x3 Resp: Effort & Inspection: normal respiratory effort Cardio: Rate: regular rate GI: GI Palp: No abdominal tenderness : Other: FHT's: 130's/ mod gregory/ + accels/ no decels - cat 1 TOCO: irregualr ctxs Cervix:1/thick/high Membranes: intact Presentation: cephalic Skin: General skin exam: normal color Neuro: General: patient oriented x3 Extrem: General: normal to inspection Psych: Appearance: grossly normal Affect: normal affect Attitude: cooperative H&P: Results Labs Labs: Short CBC 01/21/25 Range/Units 18:20 WBC 10.7 H (4.5-10.0) K/mm3 Hgb 10.8 L (12.0-15.0) g/dL Hct 34.8 L (37.0-47.0) % Plt Count 153 (150-375) k/mm3 BMP 01/21/25 18:20 Sodium 135 L Potassium 3.6 Chloride 107 Carbon Dioxide 20 L BUN 8 Creatinine 0.70 Glucose 116 H Calcium 8.8 Liver Function 01/21/25 Range/Units 18:20 Total Bilirubin 0.2 (0.2-1.3) mg/dL AST 25 (14-36) U/L ALT 15 (6-35) U/L Alkaline Phosphatase 123 (38-126) U/L Albumin 3.5 (3.5-5.1) g/dL Assessment and Plan Assessment and plan (1) Cholestasis during : Qualifiers: Trimester: third trimester Qualified Code(s): O26.643 - Intrahepatic cholestasis of , third trimester Code(s): O26.649 - Intrahepatic cholestasis of , unspecified trimester Status: Acute Plan - Admitted overnight for medical induction of labor; risks and benefits discus sed - Cervidil tonight - If cervix favorable, will then plan for AROM/high dose pitocin per protocol in AM - Continuous monitoring - GBS neg - Anesthesia consult PRN pain
[2025-01-22] VITALS (330 sets, daily range): BP systolic 73–126; BP diastolic 44–85; PULSE 66–171; TEMP 36.4–37; O2SAT 97–100
--- NOTE | 2025-01-22 07:46 | PM.OBPNLAB ---
Pain Control Date/time seen: 01/22/25 07:12 Pain control: tolerating well Pelvic Exam Dilation (cm): 1 (.5) Effacement (%): 50 station: -2 Amniotic membrane status: Intact Contractions Monitor mode: External Contraction frequency: 2 Contraction pattern: Regular Status status: Category l Assessment and Plan Assessment: induction ongoing Plan: begin patient augmentation (low dose pitocin) Comments: - cook balloon placed @ 0735 with 60/60cc of fluid - start low dose pitocin
[2025-01-22] MEDS: LACTATED RINGERS 1,000 ML 125 ML IV CONT ×3 (08:44→19:45)
[2025-01-22] MEDS: OXYTOCIN 30 UNITS/NS 500 ML 30 UNITS/500 ML BAG IV CONT (08:45)
--- NOTE | 2025-01-22 13:07 | PM.OBPNLAB ---
Pain Control Date/time seen: 01/22/25 13:07 Pain control: epidural Pelvic Exam Dilation (cm): 5 Effacement (%): 50 station: -2 Amniotic membrane status: Ruptured (AROM, clear 1305) Contractions Monitor mode: External Contraction frequency: 2 Contraction pattern: Regular Status status: Category l Assessment and Plan Pitocin rate (mU/min): 6 Assessment: induction ongoing Plan: continuous present management
--- NOTE | 2025-01-22 14:38 | P.PNAN_ITS ---
Anes - Initial Pre Proc Eval Date/Time: 01/22/25 14:38 Surgeon: Roopa Brady MD Pre Op Diagnosis: MIL Patient Data Age: 24 Gender: F Height: 1.57 m Weight: 67.7 kg Last Vital Signs Temp 36.7 C 01/22/25 13:08 Pulse 85 01/22/25 14:31 BP 103/75 01/22/25 14:31 Pulse Ox 100 01/22/25 14:33 O2 Del Method Room Air 01/21/25 19:12 Allergies Allergy/AdvReac Type Severity Reaction Status Date / Time No Known Allergies Allergy Verified 01/21/25 19:19 Home Medications ?Medication ?Instructions ?Recorded ?Confirmed ?Type docosahexaenoic acid 200 mg 200 mg PO DAILY 07/01/24 01/22/25 History capsule ( DHA) aspirin 81 mg chewable tablet 81 mg PO DAILY 10/13/24 01/22/25 History ferrous sulfate 325 mg (65 mg 325 mg PO DAILY 12/04/24 01/22/25 History iron) tablet ursodiol 300 mg capsule 300 mg PO TID 30 days #90 caps 01/05/25 01/22/25 Rx diphenhydramine HCl 25 mg capsule 25 mg PO QHS PRN itching 01/13/25 01/22/25 History (Benadryl) Laboratory Tests 01/21/25 18:20 WBC 10.7 H K/mm3 (4.5-10.0) RBC 4.21 M/mm3 (4.2-5.4) Hgb 10.8 L g/dL (12.0-15.0) Hct 34.8 L % (37.0-47.0) MCV 82.7 fl (80-100) MCH 25.7 L pg (26-34) MCHC 31.0 L g/dl (32-36) RDW 16.3 H % (11.5-14.5) Plt Count 153 k/mm3 (150-375) MPV 12.8 H fl (7.4-10.4) Immature Gran % (Auto) 2.3 H % (0-0.5) Neut % (Auto) 79.6 H % (45.5-73.1) Lymph % (Auto) 11.4 L % (18.3-44.2) Wirt % (Auto) 5.6 % (2.6-8.5) Eos % (Auto) 0.5 % (0-4.4) Baso % (Auto) 0.6 % (0.2-1.2) Lymph # (Auto) 1.22 K/mm3 (0.9-3.2) Wirt # (Auto) 0.6 K/mm3 (0.1-0.6) Eos # (Auto) 0.1 K/mm3 (0-0.3) Baso # (Auto) 0.1 K/mm3 (0.0-0.1) Abs Immat Gran (auto) 0.25 H K/mm3 (0.00-0.031) Absolute Neuts (auto) 8.5 H K/mm3 (1.3-6.7) Absolute Nucleated RBC 0.000 K/mm3 (0.0-0.012) Nucleated RBC % 0.0 % (0.0-0.2) % Immature Plt Fraction 13.3 H % (0.9-11.2) PT Pending INR Pending APTT Pending Sodium 135 L mmol/L (137-145) Potassium 3.6 mmol/L (3.4-5.0) Chloride 107 mmol/L (98-107) Carbon Dioxide 20 L mmol/L (22-30) Anion Gap 8 mmol/L (4-12) BUN 8 mg/dL (7-17) Creatinine 0.70 mg/dL (0.7-1.0) Estim Creat Clear Calc Not Reportable Estimated GFR > 60 (59 - ) Glucose 116 H mg/dL (65-110) Calcium 8.8 mg/dL (8.4-10.2) Total Bilirubin 0.2 mg/dL (0.2-1.3) AST 25 U/L (14-36) ALT 15 U/L (6-35) Alkaline Phosphatase 123 U/L (38-126) Total Protein 6.5 g/dL (6.3-8.2) Albumin 3.5 g/dL (3.5-5.1) Syphilis IgG/IgM Ab Non-reactive (Nonreactive) Blood Type O Positive Antibody Screen Negative Patient hx anesthesia problems: none Family hx anesthesia problems: none Results Review: All pre-operative results and documents have been reviewed as part of the pre- operative evaluation. [facility] Past Medical History Medical History Cholestasis Patient denies significant medical history Surgical History Surgical History History of orthopedic surgery L knee ~2017 Family History Family History Other Diabetes mellitus Hypertension Social History Social History Smoking status: Never smoker Second hand tobacco smoke exposure: No Alcohol intake: never Substance use: never Substance use type: does not use Do You Feel Safe in your Home?: Yes Lack of Transportation: No Lack of Food: Never True Current Housing: I Have Housing Concerned About Future Housing: No Difficulty Paying Gas/Electric Bills: No Difficulty Paying for Meds: No Currently Unemployed: No Education: Associate Degree Difficulty w/ Childcare or Family Care: No Living arrangements: with family Occupation/Education: other Gender identity (if verbalized by the patient): Female Sexual Orientation (if Verbalized by the Patient): Straight or Heterosexual Spiritual care concerns: No Anes - Eval Final PreProcedure Day of Procedure 01/22/25 14:38 Patient weight: overweight Heart: regular rate and rhythm Lungs: clear to auscultation Neurological: alert and oriented ASA classification: II Emergent: no Anesthetic plan: proceed Anesthesia type and monitoring: regional epidural and standard monitoring Results Review: All pre-operative results and documents have been reviewed as part of the pre- operative evaluation. Informed Consent: The patient's anesthetic plan and its attendant risks and benefits were discussed with the patient/family/POA. Questions were solicited and answers provided to the satisfaction of the patient/family/POA.
--- NOTE | 2025-01-22 17:12 | PM.OBPNLAB ---
Pain Control Date/time seen: 01/22/25 17:12 Pain control: epidural Pelvic Exam Dilation (cm): 6 Effacement (%): 50 station: -2 Amniotic membrane status: Ruptured (AROM, clear 1305) Contractions Monitor mode: Internal Contraction frequency: 2 Contraction pattern: Regular Status status: Category l Assessment and Plan Pitocin rate (mU/min): 14 Assessment: active labor Plan: continuous present management Comments: IUPC placed on this exam
[2025-01-23] VITALS (141 sets, daily range): BP systolic 94–148; BP diastolic 32–92; PULSE 31–206; RESP 16–18; TEMP 36.4–38.2; O2SAT 96–100
[2025-01-23] MEDS: LACTATED RINGERS 1,000 ML 125 ML IV CONT
[2025-01-23] MEDS: ACETAMINOPHEN 500 MG TABLET 1000 MG PO (01:41)
[2025-01-23] MEDS: AMPICILLIN SODIUM 2 GM in SODIUM CHLORIDE 0.9% IV 100 ML 200 ML IVPB ×3 (01:43→18:20)
[2025-01-23 01:54] LABS: INR 1.0; Prothrombin Time 13.3 Seconds (11.1-14.7)
[2025-01-23] MEDS: GENTAMICIN SULFATE INJ 340 MG in DEXTROSE 5% 100 ML 100 MG IVPB (02:16)
--- OUTSIDE RECORDS SUMMARY | 2025-01-23 02:33 | XMS_ITS | Clinical Summary ---
Author Organization [facility] Address [address] [place] [address] Care Team Providers Care Stationary Fireman Name Role Phone Michel Dinero FOOD RUNNER-RIVET TESTER Primary Care Pro vider Source Comments [facility],non-owned Affiliates and Associated Physician Practices is amultiple site organization consisting of ambulatory clinics and hospital sitesin [place], [place], [place] and [place]. This disclosure is being madepursuant to the Care Everywhere program and may not contain all information available regarding this patient. Last updated 18.[employer] [facility] Allergies No known active allergies Medications * [...] (111 lb 12.4 oz) 018 10:58 AM CATTLE RANCHER Height 154.5 cm (5' 0.83) 12/19/2016 7:30 [...] patient's age to complete this topic Insurance [facility] Care Teams Stationary Fireman Relationship Specialty Start Date End Date Michel Dinero, FOOD RUNNER-RIVET TESTER [facility] [place] [phone] PCP - General Nurse Practitioner 12/11/13
--- OUTSIDE RECORDS SUMMARY | 2025-01-23 02:33 | XMS_ITS | Clinical Summary ---
Author Organization [facility] Care Team Providers Care Aerospace Control [employer] Warning Systems Name Role Phone Unavailable Primary Care Provider [...]
--- NOTE | 2025-01-23 05:40 | S_PTH ---
PATIENT: Tameka Mcduffie LOC: ANHOB2 U#:[id number] AGE/SX: 24/F ROOM: 277 RE01/21/[address]: Israel Gutierrez MD : 2000 BED: 00 DIS: 01/24/2025 SPEC #: [id number] RECD: 01/26/25 10:30 STATUS: LILIAN GONZALES #: [id number] ARLYN: 01/23/25 05:[address]: Roopa Brady DEPT: [facility] Surgical RECD BY: Gillian Henderson ENTERED: 01/26/25 10:31 SP TYPE: Surgical OTHR DR: Michel Dinero, DYNAMICIST Tissues: A - Placenta Procedures: Hematoxylin and Eosin Stain Gross and Microscopic Level 5
[2025-01-23] MEDS: OXYTOCIN 30 UNITS/NS 500 ML 30 UNITS/500 ML BAG 125 UNITS IV CONT (05:52)
--- NOTE | 2025-01-23 05:52 | P.PCNOB_ITS ---
OB - Vaginal Delivery Note Procedure Delivery date: 01/23/25 Events: Other (cholestasis) Intrapartal Events: Chorioamnionitis Induction method: Per Cervidil Protocol Delivery augmentation: Rupture of Membranes and Pitocin Delivery monitor: External FHT and Internal Uterine Route of delivery: Episiotomy description: None Laceration Description: Periurethral Delivery repair: vicryl Specimen: Yes (placenta) Quantitative Blood Loss (ml): 200 Anesthesia type: Epidural Disposition: Floor Complications: No immediate complications [place] Baby Date of : 01/23/25 Time of : 05:37 Gestational Age by Date: 37 (.2) gender: Female presentation: vertex position: Right Occiput Anterior Placenta delivery description: Expressed Cord Vessel Description: 3 Vessels, Nuchal Cord and Reduced score one minute: 9 score five minutes: 9 Narrative: Tameka had a protracted labor course and there was concerns that the head was asynclitic and/or OP. She did develop a fever and tachycardia was noted therefore she was started on ampicillin 2 g IV q.6 hours as well as gentamicin 5 milligrams/kilogram q24 hours. She finally progressed to complete dilation with strong desire to push. She pushed for approximately 10 minutes with good maternal effort and delivered the head over intact perineum. Nuchal cord was noted and easily reduced. She easily delivered the 's shoulders and body without complication. The was immediately placed skin to skin. The mouth and nose were bulb suction. Spontaneous cry was then heard. Delayed cord clamping was performed. The umbilical cord was then doubly clamped and cut. A segment of cord was collected for cord gases. The remaining cord blood was collected for typing. With Pitocin running and gentle downward traction on the cord, the placenta delivered with out complication. Bimanual massage was performed and slight atony was initially noted but good uterine tone with minimal bleeding was felt. She was examined and a small right periurethral laceration was identified it required two 3-0 sutures and good hemostasis was noted. Sponge, lap, instrument, and needle counts were correct at the end the procedure. Mom and baby were left in the birthing suite in a stable condition.
--- NOTE | 2025-01-23 08:28 | OBPPTRN ---
Patient transferred to post room #277 via wheelchair. Support person present. Oriented to unit, room, information board, rooming in, admission packet and security measures. Patient verbalizes understanding.
[2025-01-23] MEDS: DOCUSATE SODIUM 100 MG CAPSULE PO ×2 (09:30→17:50)
[2025-01-23] MEDS: MULTIVIT/MIN/PREN/FOL AC/IRON TABLET 1 TAB PO (09:30)
[2025-01-23] MEDS: IBUPROFEN 600 MG TABLET PO ×2 (09:30→22:30)
[2025-01-23] MEDS: ACETAMINOPHEN 325 MG TABLET 650 MG PO (17:50)
[2025-01-24] MEDS: AMPICILLIN SODIUM 2 GM in SODIUM CHLORIDE 0.9% IV 100 ML 200 ML IVPB ×2 (01:19→07:17)
[2025-01-24] MEDS: ACETAMINOPHEN 325 MG TABLET 650 MG PO (01:41)
[2025-01-24] MEDS: IBUPROFEN 600 MG TABLET PO (03:30)
[2025-01-24 05:15] LABS: Hematocrit 37.3 % (37.0-47.0); Hemoglobin 11.3 g/dL (12.0-15.0); Immature Platelet Fraction Pct 16.3 % (0.9-11.2); Mean Corpuscular HGB Conc 30.3 g/dl (32-36); Mean Corpuscular Hemoglobin 25.7 pg (26-34); Mean Corpuscular Volume 84.8 fl (80-100); Platelet Count Result 133 k/mm3 (150-375); Red Blood Count 4.40 M/mm3 (4.2-5.4); White Blood Count 17.6 K/mm3 (4.5-10.0)
[2025-01-24 05:30] LABS: Alanine Aminotransferase 18 U/L (6-35); Albumin Level 2.9 g/dL (3.5-5.1); Alkaline Phosphatase 130 U/L (38-126); Anion Gap 5 mmol/L (4-12); Aspartate Amino Transferase 29 U/L (14-36); Bilirubin,Total 0.3 mg/dL (0.2-1.3); Blood Urea Nitrogen 6 mg/dL (7-17); Calcium 9.0 mg/dL (8.4-10.2); Carbon Dioxide 21 mmol/L (22-30); Chloride 106 mmol/L (98-107); Estimated CRCL calculation 101 ml/min; Estimated Glomerular Filt Rate > 60; Glucose 66 mg/dL (65-110); Potassium 3.8 mmol/L (3.4-5.0); Sodium 132 mmol/L (137-145); Total Protein 5.7 g/dL (6.3-8.2)
[2025-01-24 09:00] VITALS: BP 109/63; PULSE 71; RESP 16; TEMP 36.2; O2SAT 98
--- NOTE | 2025-01-24 11:31 | P.PNOB_ITS ---
OB - PN: Subj Subjective Date/time seen: 01/24/25 11:31 Narrative: Pain OK. No fever. Pain OK. . Would like to go home. OB - PN: Obj Data Labs 01/24/25 03:33 01/24/25 03:33 Labs: Laboratory Results - last 24 hr 01/24/25 03:33 WBC 17.6 H RBC 4.40 Hgb 11.3 L Hct 37.3 MCV 84.8 MCH 25.7 L MCHC 30.3 L RDW 16.3 H Plt Count 133 L MPV 13.5 H % Immature Plt Fraction 16.3 H Sodium 132 L Potassium 3.8 Chloride 106 Carbon Dioxide 21 L Anion Gap 5 BUN 6 L Creatinine 0.68 L Estim Creat Clear Calc 101 Estimated GFR > 60 Glucose 66 Calcium 9.0 Total Bilirubin 0.3 AST 29 ALT 18 Alkaline Phosphatase 130 H Total Protein 5.7 L Albumin 2.9 L OB - PN A/P Assessment and Plan (1) (normal spontaneous vaginal delivery): Code(s): O80 - Encounter for full-term uncomplicated delivery Status: Acute (2) Cholestasis during : Qualifiers: Trimester: third trimester Qualified Code(s): O26.643 - Intrahepatic cholestasis of , third trimester Code(s): O26.649 - Intrahepatic cholestasis of , unspecified trimester Status: Acute (3) Chorioamnionitis, delivered, current hospitalization: Code(s): O41.1290 - Chorioamnionitis, unspecified trimester, not applicable or unspecified Status: Acute Plan day: 1 Comments: A: PPD#1, doing well. Afebrile, feeling great. P: Stop antibiotics. If she does well today, could be able to go home later today to f/u 6 weeks. Exam 2 Psych: Other: AVSS ABD soft, nontender, fundus firm EXT nontender
--- NOTE | 2025-01-24 11:31 | WPDANLDPN2 ---
Anes-Prog Note L&D Date/Time: 01/24/25 11:31 Comfortable throughout: labor and delivery Neuraxial method: epidural Epidural/Spinal procedure site: clean & non-tender Neuro status: Neuro function grossly intact. Cardiovascular status: normal Respiratory status: normal Airway patency: baseline Mental status: baseline Post-Op hydration status: normal Vital Signs: Last Vital Signs Temp 97.2 F L 01/24/25 09:00 Pulse 71 01/24/25 09:00 Resp 16 01/24/25 09:00 BP 109/63 01/24/25 09:00 Pulse Ox 98 01/24/25 09:00 O2 Del Method Room Air 01/24/25 09:00 Pain score (VAS): 0 I/O: Intake & Output 01/23/25 01/24/25 01/24/25 23:59 07:59 15:59 Intake Total 100 240 Balance 100 240 Post-procedural complaints: none Patient feedback: Patient satisfied with anesthetic care. Other findings: pt states first epidural fell out, required replacement.
--- NOTE | 2025-01-24 11:34 | P.DS_ITS ---
DS: Admitting Diagnosis Discharge Date 01/24/25 Admitting Diagnosis IUP at term Cholestasis of DS: Discharge Diagnosis Discharge Diagnosis (1) (normal spontaneous vaginal delivery): Code(s): O80 - Encounter for full-term uncomplicated delivery Status: Acute (2) Chorioamnionitis, delivered, current hospitalization: Code(s): O41.1290 - Chorioamnionitis, unspecified trimester, not applicable or unspecified Status: Acute (3) Cholestasis during : Qualifiers: Trimester: third trimester Qualified Code(s): O26.643 - Intrahepatic cholestasis of , third trimester Code(s): O26.649 - Intrahepatic cholestasis of , unspecified trimester Status: Acute OB - DS: Summary OB Procedures : NST OB Procedures Intrapartum: Spontaneous Vag Delivery OB Procedures: : Antibiotics Peripartum Data Laceration Description: Periurethral Episiotomy description: None Time Spent with Patient Time attestation: Total time spent providing and/or coordinating discharge services: DS: Data Data Completed and Pending Labs on day of discharge: Labs from last 24 hours 01/24/25 03:33 WBC 17.6 H RBC 4.40 Hgb 11.3 L Hct 37.3 MCV 84.8 MCH 25.7 L MCHC 30.3 L RDW 16.3 H Plt Count 133 L MPV 13.5 H % Immature Plt Fraction 16.3 H Sodium 132 L Potassium 3.8 Chloride 106 Carbon Dioxide 21 L Anion Gap 5 BUN 6 L Creatinine 0.68 L Estim Creat Clear Calc 101 Estimated GFR > 60 Glucose 66 Calcium 9.0 Total Bilirubin 0.3 AST 29 ALT 18 Alkaline Phosphatase 130 H Total Protein 5.7 L Albumin 2.9 L Discharge Plan Discharge Attending physician on discharge: Israel Gutierrez Discharging Clinician: Israel Gutierrez Patient Disposition: Home Activity: pelvic rest Diet: regular Discharge Instructions: Call or return if temperature above 100.4? F, increased abdominal pain, increased vaginal bleeding or any new problems. Patient Instructions: Antibiotic Form Patient Language: Frisian Stand Alone Forms: General Discharge Information Follow-up/Referrals: Roopa Brady MD [Physician] - Call for Appointment Discharge Medications: New ibuprofen 600 mg tablet 600 mg PO Q6H PRN (Reason: cramps) Qty: 30 0RF Continued DHA 200 mg capsule 200 mg PO DAILY diphenhydramine HCl [Benadryl] 25 mg capsule 25 mg PO QHS PRN (Reason: itching) Discontinued ferrous sulfate 325 mg (65 mg iron) tablet 325 mg PO DAILY aspirin 81 mg tablet,chewable 81 mg PO DAILY No Action ursodiol 300 mg capsule 300 mg PO TID 30 Days Qty: 90 1RF Date of admission: 01/23/25 00:58 Primary Care Provider: BarMichel Admitting Provider: Roopa Brady Attending physician on admission: Roopa Brady Condition: Stable
[2025-01-26 08:29] VITALS: BP 112/80; PULSE 80; RESP 16; TEMP 36.7; O2SAT 100
--- OUTSIDE RECORDS SUMMARY | 2025-01-26 08:32 | XMS_ITS | Clinical Summary ---
Author Organization [facility] [employer] Address [address] [place] [address] Care Team Providers Care Boat Wrapper Name Role Phone Michel Dinero BOBBIN COIL WINDER-MULTIPLE SCLEROSIS NURSE Primary Care Pro vider Source Comments [facility] [employer],non-owned Affiliates and Associated Physician Practices is amultiple site organization consisting of ambulatory clinics and hospital sitesin [place], [place], [place] and [place]. This disclosure is being madepursuant to the Care Everywhere program and may not contain all information available regarding this patient. Last updated 18.[employer] Allergies No known active allergies Medications * [...] (111 lb 12.4 oz) 018 10:58 AM OUTSIDE RIGGER Height 154.5 cm (5' 0.83) 12/19/2016 7:30 [...] to complete this topic Insurance [facility] Care Teams Boat Wrapper Relationship Specialty Start Date End Date Michel Dinero, BOBBIN COIL WINDER-MULTIPLE SCLEROSIS NURSE [facility] [place] [phone] PCP - General Nurse Practitioner 12/11/13
--- OUTSIDE RECORDS SUMMARY | 2025-01-26 08:32 | XMS_ITS | Clinical Summary ---
Author Organization [facility] Care Team Providers Care Order Taker Name Role Phone Unavailable Primary Care Provider [...]
== END 2025-01-24 17:45 | disposition home or self-care (01) | DRG 560 ==
LOC: ANHLDR 17:46 → ANHOB2 01-24 11:35 → ANHLDR 01-27 08:52 → ANHOB2 01-27 08:52
PROVIDERS: Admitting Provider Obstetrics & Gynecology; PCP Registered Nurse; Visit Provider Obstetrics & Gynecology
DX: O75.2 Pyrexia during labor, not elsewhere classified (principal); O26.643 Intrahepatic cholestasis of pregnancy, third trimester; O71.82 Other specified trauma to perineum and vulva; O69.81X0 Labor and delivery complicated by cord around neck, without compression, not applicable or unspecified; Z3A.37 37 weeks gestation of pregnancy; Z37.0 Single live birth
CPT/HCPCS: 36415; 80053; 85025; 85027; 85055; 85610; 86593; 86850; 86900; 86901; 88307; A9270; J0290; J1580; J2590; J2795; J7120

== ENCOUNTER 2025-01-29 13:50 | Outpatient (CLI) | payer OTHER, SELFPAY ==
--- OUTSIDE RECORDS SUMMARY | 2025-01-29 13:59 | XMS_ITS | Clinical Summary ---
Author Organization [facility] [employer] Address [address] [place] [address] Care Team Providers Care Laborer Wharf Name Role Phone Michel Dinero EXPLOSIVE SPECIALIST-HAND CROCHETER Primary Care Pro vider Source Comments [facility] [employer],non-owned Affiliates and Associated Physician Practices is amultiple site organization consisting of ambulatory clinics and hospital sitesin [place], [place], [place] and [place]. This disclosure is being madepursuant to the Care Everywhere program and may not contain all information available regarding this patient. Last updated 18[employer] Allergies No known active allergies Medications * [...] (111 lb 12.4 oz) 018 10:58 AM FISH CLEANER Height 154.5 cm (5' 0.83) 12/19/2016 7:30 [...] patient's age to complete this topic Insurance [facility] Care Teams Laborer Wharf Relationship Specialty Start Date End Date Michel Dinero, EXPLOSIVE SPECIALIST-HAND CROCHETER [facility] [place] [phone] PCP - General Nurse Practitioner 12/11/13
--- OUTSIDE RECORDS SUMMARY | 2025-01-29 13:59 | XMS_ITS | Clinical Summary ---
Author Organization [facility] Care Team Providers Care Emergency Crew Supervisor Name Role Phone Unavailable Primary Care [...]
[2025-01-29 14:12] VITALS: BP 119/70; PULSE 95
--- NOTE | 2025-01-29 14:12 | PC.NURSE ---
Pt present stating her hands and feet have more swelling than her normal. Pt also states she has a headache that been going on off and on for a couple days. pt states that she has tried pain meds once or twice but it didnt do anything for her pain. No noticeable swelling noted.
[2025-01-29 14:15] VITALS: BP 121/71; PULSE 102
[2025-01-29 14:30] VITALS: BP 116/68; PULSE 98
[2025-01-29] MEDS: IBUPROFEN 400 MG TABLET 800 MG PO (14:40)
[2025-01-29 14:45] VITALS: BP 111/65; PULSE 95
[2025-01-29 14:48] LABS: Hematocrit 38.7 % (37.0-47.0); Hemoglobin 11.6 g/dL (12.0-15.0); Immature Granulocyte Percent A 1.8 % (0-0.5); Lymphocytes Absolute Auto 1.42 K/mm3 (0.9-3.2); Mean Corpuscular HGB Conc 30.0 g/dl (32-36); Mean Corpuscular Hemoglobin 24.8 pg (26-34); Mean Corpuscular Volume 82.9 fl (80-100); Nucleated Red Blood Cells Absolute Auto 0.000 K/mm3 (0.0-0.012); Nucleated Red Blood Cells Perc 0.0 % (0.0-0.2); Platelet Count Result 263 k/mm3 (150-375); Red Blood Count 4.67 M/mm3 (4.2-5.4); White Blood Count 12.1 K/mm3 (4.5-10.0)
[2025-01-29 14:51] VITALS: BP 119/70; PULSE 95
[2025-01-29 15:00] VITALS: BP 121/71; PULSE 92
[2025-01-29 15:01] LABS: Alanine Aminotransferase 34 U/L (6-35); Albumin Level 3.6 g/dL (3.5-5.1); Alkaline Phosphatase 107 U/L (38-126); Anion Gap 9 mmol/L (4-12); Aspartate Amino Transferase 29 U/L (14-36); Bilirubin,Total 0.2 mg/dL (0.2-1.3); Blood Urea Nitrogen 13 mg/dL (7-17); Calcium 9.3 mg/dL (8.4-10.2); Carbon Dioxide 23 mmol/L (22-30); Chloride 107 mmol/L (98-107); Estimated Glomerular Filt Rate > 60; Glucose 137 mg/dL (65-110); Potassium 3.8 mmol/L (3.4-5.0); Sodium 139 mmol/L (137-145); Total Protein 6.7 g/dL (6.3-8.2); Uric Acid 6.5 mg/dL (2.5-7.5)
== END 2025-01-29 15:20 | disposition home or self-care (01) ==
LOC: ANHOBOP 13:56 → ANHOBPP 13:59
PROVIDERS: PCP Registered Nurse; Visit Provider Obstetrics & Gynecology
DX: Z34.90 Encounter for supervision of normal pregnancy, unspecified, unspecified trimester (principal); Z3A.00 Weeks of gestation of pregnancy not specified
CPT/HCPCS: 36415; 80053; 84550; 85025; 99199; A9270

== ENCOUNTER 2025-04-02 03:00 | Emergency (ER) | payer OTHER, SELFPAY ==
[2025-04-02] VITALS (13 sets, daily range): BP systolic 103–139; BP diastolic 58–89; PULSE 67–84; RESP 14–18; TEMP 36.4; O2SAT 97–100
--- NOTE | 2025-04-02 08:01 | ED.GENADULT ---
HPI - General Adult General Chief complaint: Urogenital-Female Stated complaint: uterine prolapse? Time Seen by Provider: 04/02/25 07:03 History of Present Illness HPI narrative: 25-year-old female that is 2 months vaginal delivery presents to the emergency department for evaluation for sensation that she suspects is uterine prolapse. Patient states that she has felt something has been ?off? for the last few weeks. Patient states she does have some increased lower abdominal pressure. Patient states she did have some sharp lower abdominal pain. Patient denies any pain with urination. Related Data Home Medications ?Medication ?Instructions ?Recorded ?Confirmed ?Last Taken ?Type docosahexaenoic acid 200 mg mg PO 02/25/25 02/25/25 Unknown History capsule ( DHA) Allergies Allergy/AdvReac Type Severity Reaction Status Date / Time No Known Allergies Allergy Verified 02/25/25 16:09 Review of Systems Review of Systems: All systems reviewed & are unremarkable except as noted in HPI and below PMFSH Past Medical History Medical History Cholestasis Patient denies significant medical history Surgical History Surgical History History of orthopedic surgery L knee ~2017 Family History Family History Other Diabetes mellitus Hypertension Social History Social History Smoking status: Never smoker Second hand tobacco smoke exposure: No Alcohol intake: never Substance use: never Substance use type: does not use Do You Feel Safe in your Home?: Yes Lack of Transportation: No Lack of Food: Never True Current Housing: I Have Housing Concerned About Future Housing: No Difficulty Paying Gas/Electric Bills: No Difficulty Paying for Meds: No Currently Unemployed: No Education: Associate Degree Difficulty w/ Childcare or Family Care: No Living arrangements: with family Occupation/Education: other Gender identity (if verbalized by the patient): Female Sexual Orientation (if Verbalized by the Patient): Straight or Heterosexual Spiritual care concerns: No Course Vital Signs Vital signs: Vital Signs Temperature 97.6 F 04/02/25 03:03 Pulse Rate 84 04/02/25 03:03 Respiratory Rate 18 10/09/25 03:03 Blood Pressure 139/78 04/02/25 03:03 Pulse Oximetry 97 04/02/25 03:03 Temperature 97.6 F 04/02/25 03:03 Pulse Rate 83 04/02/25 12:55 Respiratory Rate 15 04/02/25 12:55 Blood Pressure 115/60 04/02/25 12:55 Pulse Oximetry 100 04/02/25 12:55 Medical Decision Making MDM Narrative Medical decision making narrative: 25-year-old female presents emergency department for evaluation for concern for vaginal prolapse. Patient had no at topical abnormalities on the pelvic exam with no prolapse. Patient's urine did have high white blood cells patient denies any urinary symptoms. Patient did have some vaginal discharge that was concerning for BP. BV test is a send out and is pending. Patient was negative for Trichomonas gonorrhea and chlamydia. Patient was updated the results of the workup patient was comfortable discharge and close follow-up. Differential Diagnosis Differential Diagnosis: Uterine prolapse, urinary tract infection, gonorrhea, chlamydia, bacterial vaginosis, urinary tract infection Vital Signs Vital Signs: Vital Signs Temperature 97.6 F 04/02/25 03:03 Pulse Rate 84 04/02/25 03:03 Respiratory Rate 18 04/02/25 03:03 Blood Pressure 139/78 04/02/25 03:03 Pulse Oximetry 97 04/02/25 03:03 Temperature 97.6 F 04/02/25 03:03 Pulse Rate 83 04/02/25 12:55 Respiratory Rate 15 04/02/25 12:55 Blood Pressure 115/60 04/02/25 12:55 Pulse Oximetry 100 04/02/25 12:55 Lab Data Lab results reviewed: Yes I reviewed the patient's lab results. Labs: Lab Results 04/02/25 04/02/25 Range/Units 08:31 10:46 Urine Color Yellow (Yellow) Urine Appearance Cloudy H (Clear) Urine pH 6.5 (5.0-9.0) Ur Specific [place] 1.016 (1.001-1.035) Urine Protein Negative (Negative) mg/dL Urine Glucose (UA) Negative (Negative) mg/dL Urine Ketones Negative (Negative) mg/dL Ur Blood (Man) Negative (Negative) Urine Nitrate Negative (Negative) Urine Bilirubin Negative (Negative) Urine Urobilinogen 0.2 (<2.0) mg/dL Leukocyte Esterase Rfl 3+ H (Negative) EKTA/UL Urine RBC 3-5 H (0-2) /hpf Urine WBC 21-50 H (0-3) /hpf Ur Squamous Epith Cells Few (Few) /hpf Urine Bacteria 1+ H /hpf Urine Casts 0-2 C. trachomatis (PCR) Not detected (NOT DETECTE) N. gonorrhoeae (PCR) Not detected (NOT DETECTE) T. vaginalis (PCR) Not detected (NOT DETECTE) Bact Vaginosis Panel Cancelled Discharge Plan Discharge Clinical Impression: Vaginal discharge, Pelvic pressure in female Patient Disposition: Home Condition: Stable Instructions: Antibiotic Form, Bacterial Vaginosis (ED) Additional Instructions: You do have some bacterial studies that are pending. If these are positive you will receive notification. Have close follow-up with OB Gyne. If you have any worsening symptoms then please call or return to the emergency department. Patient Language: Martiniquais Prescriptions: No Action DHA 200 mg capsule PO hydroxyzine HCl 25 mg tablet 25 mg PO TID PRN (Reason: anxiety) Qty: 90 0RF Follow-up/Referrals: PHYSICIAN NOT ON STAFF,NONSTAFF [Non-Staff]
[2025-04-02 08:47] LABS: Add Urine Microscopic? YES; Appearance Urine Cloudy (Clear); Glucose Urine UA Negative (Negative); Leukocyte Esterase Ur 3+ LEU/UL (Negative); Nitrate Urine Negative (Negative); Non Pathogenic Casts 0-2; Specific Grav Ur 1.016 (1.001-1.035)
[2025-04-02 12:05] LABS: Trichomonas Vag PCR NOT DETECTED (NOT DETECTE)
== END 2025-04-02 12:56 | disposition home or self-care (01) ==
PROVIDERS: Emergency Provider Emergency Medicine
DX: N89.8 Other specified noninflammatory disorders of vagina (principal); R10.20 Pelvic and perineal pain unspecified side
CPT/HCPCS: 81001; 87086; 87491; 87591; 87661; 87798; 99284

== ENCOUNTER 2025-04-19 17:05 | Emergency (ER) | payer OTHER, SELFPAY ==
[2025-04-19 17:12] VITALS: BP 119/65; PULSE 63; RESP 18; TEMP 36.9; O2SAT 98
--- NOTE | 2025-04-19 17:23 | ED_ITS ---
HPI - Ear Problem General Chief complaint: Ear Stated complaint: Ears Irritation Time Seen by Provider: 04/19/25 17:26 Source: patient, RN notes reviewed and old records reviewed Mode of arrival: ambulatory Limitations: no limitations History of Present Illness HPI Narrative: 25 year old female who presents to [facility] care with complaints of bilateral ear pain for the past 2 months and her OB doctor told her she just had some fluid on her ears and to take Zyrtec and Flonase which she has been doing. Patient reports that she is still having pain in ears with left greater than right, no drainage from ears, denies any nasal congestion, cough or any sore throats or any fevers. She is 3 months post from having her daughter is breast feeding. She has not taken any Tylenol or Ibuprofen. MD Complaint: ear pain, decreased hearing and other (feel irritated Left greater that right) Location: bilateral (left greater than right) Duration: intermittent Severity: moderate (4) Discharge from ear: Reports no Associated symptoms ear: decreased hearing and other (discomfort) Treatment prior to arrival: other (zyrtec and flonase) Related Data Home Medications ?Medication ?Instructions ?Recorded ?Confirmed ?Last Taken ?Type docosahexaenoic acid 200 mg mg PO 02/25/25 02/25/25 Un known History capsule ( DHA) Allergies Allergy/AdvReac Type Severity Reaction Status Date / Time No Known Allergies Allergy Verified 04/19/25 17:07 Review of Systems Review of Systems: CONSTITUTIONAL: Denies malaise, chills, sweats, or fever. EYES: Denies visual changes, redness, or discharge. ENT: Reports rhinorrhea, congestion,no sinus pain, bilateral with left greater that right and no sore throat. CARDIOVASCULAR: Denies chest pain, palpitations, or edema. RESPIRATORY: Reports no cough.? Denies dyspnea. GASTROINTESTINAL: Denies abdominal pain, nausea, vomiting, diarrhea SKIN: Denies rash or itching. MUSCULOSKELETAL: Denies myalgia. NEUROLOGIC: Denies headache. All systems reviewed & are unremarkable except as noted in HPI and below PMFSH Past Medical History Medical History Cholestasis Patient denies significant medical history Surgical History Surgical History History of orthopedic surgery L knee ~2017 Family History Family History Other Diabetes mellitus Hypertension Social History Social History Smoking status: Never smoker Second hand tobacco smoke exposure: No Alcohol intake: never Substance use: never Substance use type: does not use Do You Feel Safe in your Home?: Yes Lack of Transportation: No Lack of Food: Never True Current Housing: I Have Housing Concerned About Future Housing: No Difficulty Paying Gas/Electric Bills: No Difficulty Paying for Meds: No Currently Unemployed: No Education: Associate Degree Difficulty w/ Childcare or Family Care: No Living arrangements: with family Occupation/Education: other Gender identity (if verbalized by the patient): Female Sexual Orientation (if Verbalized by the Patient): Straight or Heterosexual Spiritual care concerns: No Comments At time of signature, agree with nursing past medical, surgical, social and family history. There is no relevant family history pertinent to the presenting complaint Exam Narrative: GENERAL: Well-appearing, well-nourished, and in no acute distress. HEAD: Normocephalic EYES: PERRLA, conjunctivae clear ENT: Nares clear, turbinates edematous and erythematous, clear discharge. Mucous membranes moist.Left TM with some redness with canal red and irritated no drainage noted Right TM pearly king with dull light reflex; no tragal tenderness. Oropharynx erythematous without lesions. Tonsils not enlarged and without exudate, no drooling, no hoarseness, no trismus, uvula midline. NECK: Supple. No lymphadenopathy CHEST: Clear to auscultation, breath sounds equal. No wheezing, rhonchi, rales, or stridor. No respiratory distress, speaks in full sentences. no cough noted SAO2 98% on room air HEART: Regular rate and rhythm. No murmur heard. SKIN: Warm, dry, no rash. NEURO: Alert and oriented x3. PSYCH: Normal mood and affect Course Course Emergency Course: Patient is aware of diagnosis, understands and agrees to treatment plan.? Anticipatory guidance given.? Patient agrees to follow-up as directed and is aware of reasons to seek care at the emergency department. Portions of this record may have been created with voice recognition software Level of Care: Express Care Visit Vital Signs Vital signs: Vital Signs Temperature 36.9 C 04/19/25 17:12 Pulse Rate 63 04/19/25 17:12 Respiratory Rate 18 04/19/25 17:12 Blood Pressure 119/65 04/19/25 17:12 Pulse Oximetry 98 04/19/25 17:12 Oxygen Delivery Room Air 04/19/25 17:12 Temperature 36.9 C 04/19/25 17:12 Pulse Rate 63 04/19/25 17:12 Respiratory Rate 18 04/19/25 17:12 Blood Pressure 119/65 04/19/25 17:12 Pulse Oximetry 98 04/19/25 17:12 Oxygen Delivery Room Air 04/19/25 17:12 Reviewed Medical Decision Making Differential Diagnosis Differential Diagnosis: URI, otitis media, otitis externa, otalgia Medical Records Medical records reviewed: Yes I reviewed the external patient's medical records. Vital Signs Vital Signs: Vital Signs Temperature 36.9 C 04/19/25 17:12 Pulse Rate 63 04/19/25 17:12 Respiratory Rate 18 04/19/25 17:12 Blood Pressure 119/65 04/19/25 17:12 Pulse Oximetry 98 04/19/25 17:12 Oxygen Delivery Room Air 04/19/25 17:12 Temperature 36.9 C 04/19/25 17:12 Pulse Rate 63 04/19/25 17:12 Respiratory Rate 18 04/19/25 17:12 Blood Pressure 119/65 04/19/25 17:12 Pulse Oximetry 98 04/19/25 17:12 Oxygen Delivery Room Air 04/19/25 17:12 reviewed Critical Care Time Critical Care Time Critical Care Time: No Discharge Plan Discharge Clinical Impression: Otitis media Qualifiers: Otitis media type: serous Chronicity: acute Laterality: left Recurrence: not specified as recurrent Qualified Code(s): H65.02 - Acute serous otitis media, left ear Otitis externa Qualifiers: Otitis externa type: diffuse Chronicity: acute Laterality: left Qualified Code(s): H60.312 - Diffuse otitis externa, left ear Patient Disposition: Home Condition: Stable Instructions: Antibiotic Form, Barotitis Media (ED), Ear Infection (GEN) Additional Instructions: Increase fluids especially juices and water [id number] cough and cold medicine of your choice for your symptoms Continue your nasal spray daily and continue with Zyrtec Claritin or Liana daily heat to the face 20-30 minutes 4-6 times a day for pain Salt water gargles, throat lozenges or throat sprays as desired Antibiotic as directed--finished the medication If your symptoms persist, change or worsen significantly before you can contact your personal physician then please, without delay, go to the emergency department for further evaluation. Follow-up with PCP in 7-10 days or sooner if needed antibiotic ear drops as prescribed Patient Language: [place] Prescriptions: New amoxicillin 875 mg tablet 875 mg PO Q12H Qty: 20 0RF ofloxacin 0.3 % drops 5 drp LEFT EAR BID 7 Days Qty: 10 0RF No Action DHA 200 mg capsule PO hydroxyzine HCl 25 mg tablet 25 mg PO TID PRN (Reason: anxiety) Qty: 90 0RF Follow-up/Referrals: Bar,JAYDA Pearson [Primary Care Provider] Time of Disposition: 17:41 Quality Russ Coma Scale Eyes: Open Verbal: Oriented and Alert Motor: Follows Commands [place] Coma Total Score: 15
== END 2025-04-19 17:45 | disposition home or self-care (01) ==
PROVIDERS: Emergency Provider Registered Nurse; PCP Registered Nurse
DX: H65.02 Acute serous otitis media, left ear (principal); H60.312 Diffuse otitis externa, left ear
CPT/HCPCS: 99213; G0463